=== PATIENT | male | born 1940 | race Caucasian/White ===

== ENCOUNTER 2021-03-02 13:54 | Outpatient (CLI) | payer MEDICARE, MEDICAID, SELFPAY ==
--- NOTE | 2021-03-02 14:15 | USCV_ITS ---
Johnie Reveles Age: 80 Gender: M : 1940 Exam Date: 03/02/2021 14:13 Ordering Phys: Pete Gibson M.D ([email or web address]) Technologist: Yasmine Case Exam Location: [facility] Indication: SOB BP: 197 / 70 HR: 131 Rhythm: Sinus Technical Quality: Adequate MEASUREMENTS (Male / Female) Normal Values 2D ECHO LV Diastolic Diameter PLAX 4.9 cm 4.2 - 5.9 / 3.9 - 5.3 cm LV Systolic Diameter PLAX 3.5 cm LV Chamber Size 2.9 cm IVS Diastolic Thickness 1.2 cm 0.6 - 1.0 / 0.6 - 0.9 cm IVS Systolic Thickness 1.4 cm LVPW Diastolic Thickness 1.5 cm 0.6 - 1.0 / 0.6 - 0.9 cm LVPW Systolic Thickness 1.5 cm RV Chamber Size 4.0 cm LVOT Diameter 2.0 cm LV Ejection Fraction 2D Teich 53.4 % LV Ejection Fraction MOD 2C 33.4 % LV Ejection Fraction 2C AL 43.1 % LA Diameter 4.8 cm LA Width 3.4 cm LA Height 5.4 cm RA Width 3.7 cm RA Height 4.8 cm Aorta at Sinotubular Diameter 2.7 cm M-MODE LV Diastolic Diameter MM 4.9 cm 4.2 - 5.9 / 3.9 - 5.3 cm LV Systolic Diameter MM 4.5 cm LV Ejection Fraction MM Teich 16.8 % IVS Diastolic Thickness MM 1.1 cm 0.6 - 1.0 / 0.6 - 0.9 cm IVS Systolic Thickness MM 1.2 cm LVPW Diastolic Thickness MM 1.5 cm 0.6 - 1.0 / 0.6 - 0.9 cm LVPW Systolic Thickness MM 2.0 cm Aortic Annulus Diameter 3.5 cm LA Ao Ratio MM 1.4 MV E Point Septal Separation 0.8 cm DOPPLER AV Peak Velocity 169.7 cm/s LVOT Peak Velocity 73.0 cm/s AV Area Cont Eq vti 1.8 cm squared AV Area Cont Eq pk 1.4 cm squared MV Area PHT 7.4 cm squared Mitral E to A Ratio 3.4 MV E' Velocity 68.2 cm/s Mitral E to MV E' Ratio 12.8 Mitral E to LV E' Lateral Ratio 12.0 Mitral E to LV E' Septal Ratio 13.7 TR Peak Velocity 316.8 cm/s TR Peak Gradient 40.2 mmHg TR Mean Velocity 238.7 cm/s TR Mean Gradient 25.4 mmHg TR Velocity Time Integral 76.0 cm Right Atrial Pressure 3.0 mmHg Pulmonary Artery Systolic Pressu 43.2 mmHg PV Peak Velocity 78.0 cm/s RV Acceleration Time 0.2 s RV Ejection Time 0.3 s RV AcT/ET 0.6 FINDINGS Left Ventricle Normal left ventricular size. LV systolic function is severely reduced with EF of 20-25%. Severe global hypokinesis. Diastolic function is indeterminate because of atrial flutter Right Ventricle The right ventricle is normal in size and function. Pacemaker lead is noted Right Atrium The right atrium is normal in size. [place] lead is seen Left Atrium The left atrium is dilated Mitral Valve Mild mitral annular calcification is noted without significant stenosis or prolapse. There is mild mitral regurgitation. Aortic Valve Aortic valve is thickened without significant sclerosis or stenosis. There is trace aortic regurgitation. Tricuspid Valve Structurally normal tricuspid valve without significant stenosis . Mild tricuspid regurgitation. RVSP is 35-40mmHg. This is consistent with mild pulmonary hypertension Pulmonic Valve Structurally normal pulmonic valve without significant stenosis. There is no pulmonic regurgitation. Pericardium Normal pericardium without effusion. Aorta Normal ascending aorta dimension. CONCLUSIONS LV systolic function is severely reduced with EF of 20-25% Left atrial enlargement Mild mitral regurgitation Mild tricuspid regurgitation Mild pulmonary hypertension No comparison studies are available Pete Gibson MD (Electronically Signed) Final Date: 06 March 2021 18:47 S
== END 2021-03-02 13:55 | disposition home or self-care (01) ==
LOC: RAD 14:01
PROVIDERS: PCP Nurse Practitioner Family; Visit Provider Internal Medicine
DX: R06.02 Shortness of breath (principal); I08.1 Rheumatic disorders of both mitral and tricuspid valves; I27.20 Pulmonary hypertension, unspecified
CPT/HCPCS: 93306

== ENCOUNTER 2021-03-03 14:35 | Inpatient (IN) | payer MEDICARE, MEDICAID, SELFPAY ==
[2021-03-03] VITALS (20 sets, daily range): BP systolic 88–130; BP diastolic 57–92; PULSE 98–133; RESP 15–23; TEMP 36.8–37.3; O2SAT 92–97; BMI 37.1; BMI 34.4
--- NOTE | 2021-03-03 14:58 | XR_ITS ---
WS: [id number] Exam: XR chest 1V portable [id number] Date/Time of Exam: 03/03/2021 3:15 PM Reason For Exam: dyspnea/cough No priors. The lungs are fully expanded. No infiltrates are seen. No pleural effusions. The heart is not enlarge d. Signs of previous CABG surgery. A cardiac pacer superimposes the left chest. Regional bony structu res are intact. XR/XR chest 1V portable [id number] IMPRESSION: 1. No acute cardiopulmonary finding.
--- NOTE | 2021-03-03 14:59 | ECG_ITS ---
[facility] Test Date: 2021-03-03 Pat Name: Johnie Reveles Department: Room: Gender: Male Mesmerist: : 1940 Requested By: Tripp Paredes Order Number: [id number] Moise MD: Pete Gibson M.D. Measurements Intervals [place] Rate: 132 P: 98 ID: [id number] QRS: 85 QRSD: 166 T: -73 QT: 354 QTc: 525 Interpretive Statements SINUS TACHYCARDIA LEFT BUNDLE BRANCH BLOCK [120+ ms QRS DURATION, 80+ ms Q/S IN V1/V2, 85+ ms R IN I/aVL/V5/V6] No previous ECG available for comparison Electronically Signed On 03-03-2021 17:30:18 CDT by Pete Gibson M.D. [email or web address] Solutionsuniversity of mississippi medical centerRogers Geotechnical Servicesohiohealth riverside method[facility] hospital.[id number]
--- NOTE | 2021-03-03 15:01 | ED_ITS ---
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 He has also gained 5 pounds in the last [address] Harvey and sent him over he was concerned with his significant ischemic cardiomyopathy was developing congestive heart failure. An echocardiogram yesterday. He states her heart rate went up 4 days ago and has been persistently elevated since then. He is denying any chest pain at this time and interestingly does not have a significant amount of orthopnea.He has an ICD and it was interrogated in Dr. Harvey's office today and was functioning properly. Onset (ago): day(s) (4) Relieving factors: none Exacerbating factors: none Associated symptoms: Reports dyspnea and palpitations; Deny chest pain, confusion, cough, diaphoresis, decreased appetite, fevers/chills, headache(s), malaise, nausea, rash, seizures, short of breath, syncope, vomiting or weakness Treatments prior to arrival: none Review of Systems Const: Denies: malaise or diaphoresis ENMT: Denies: throat pain, ear or mastoid pain, nasal discharge or nasal congestion Card: Reports: palpitations; Denies: chest pain or syncope Resp: Reports: dyspnea GI: Denies: nausea or vomiting : Denies: flank pain, dysuria, urinary frequency or urinary urgency Skin/Breast: Denies: rash Neuro: Denies: headache(s) or confusion PFSH ED PFSH: Medical History CAD (coronary artery disease) CHF (congestive heart failure) Hyperlipidemia Hypertension Pacemaker Surgical History H/O heart bypass surgery H/O shoulder surgery History of back surgery Hx of total knee arthroplasty Family History (Updated 03/03/21 @ 17:56 by Jh Lobo MD) Mother Alzheimer's dementia Father No problems noted. Other Hypertension Social History Smoking and tobacco status: never smoked Physical Exam Const: COMMON NORMALS: no acute distress GENERAL APPEARANCE: cooperative and comfortable ORIENTATION/CONSCIOUSNESS: Yes awake, Yes oriented to person, Yes oriented to place and Yes oriented to time HENMT: COMMON NORMALS: normocephalic, atraumatic, hearing grossly normal bilaterally and external ears normal HEAD & SCALP: normocephalic and atra umatic EXTERNAL EAR: Yes external ears normal Resp: COMMON NORMALS: normal respiratory effort, No retractions, No use of accessory muscles and clear to auscultation bilaterally AUSCULTATION: clear to auscultation bilaterally Cardio: COMMON NORMALS: No murmurs present (Cardio) RATE: tachycardic GI: COMMON NORMALS: Soft to palpation and No hepatosplenomegaly present AUSCULTATION: Yes normoactive bowel sounds PALPATION: Yes Soft to palpation, No Tenderness to palpation present (GI), No Guarding due to palpation present (GI) and Yes No hepatosplenomegaly present Extremity: COMMON NORMALS: normal to inspection, capillary refill normal, no clubbing, cyanosis or edema and no calf tenderness GENERAL: Yes edema Neuro: SENSORIUM/ORIENTATION: Yes oriented to person, Yes oriented to place and Yes oriented to time Skin: COMMON NORMALS: no rashes or lesions noted GENERAL SKIN EXAM: no rashes or lesions noted Course Vital Signs: Vital signs: Vital Signs Temperature 97.5 F L 03/05/21 06:30 Pulse Rate 127 H 03/05/21 06:30 Respiratory Rate 19 H 03/05/21 06:30 Blood Pressure 177/106 03/05/21 06:30 Pulse Oximetry 95 03/05/21 06:30 MDM - General Adult MDM Narrative: Medical decision making narrative: Patient is tachycardic patient has a known history of ischemic cardiomyopathy started on esmolol to slow rate pressure did improve also given Lasix has mild heart failure to discussed him with Dr. Gibson prior to the patient's arrival here will admit for rate control and congestive heart failure. Lab Data: Labs: Lab Results 03/03/21 03/03/21 03/03/21 Range/Units 15:31 15:31 15:31 WBC 8.0 (4.0-10.0) 10^3/ uL RBC 4.32 (4.1-5.3) 10^6/u L Hgb 13.3 (11.7-16.6) g/dL Hct 40.2 L (42.0-52.0) % MCV 93.1 (80-94) fL MCH 30.8 (28.0-34.0) pg MCHC 33.1 (30.0-36.0) g/dL RDW 13.2 (12.1-15.1) % Plt Count 148 (130-400) 10^3/c mm MPV 10.7 H (7.4-10.4) fL Neut % (Auto) 65.0 % Lymph % (Auto) 22.8 % Sequoyah % (Auto) 9.5 % Eos % (Auto) 1.7 % Baso % (Auto) 0.6 % Neut # (Auto) 5.23 (1.8-7.7) 10^3/u L Lymph # (Auto) 1.8 (0.8-4.8) 10^3/u L Sequoyah # (Auto) 0.8 (0.2-0.9) 10^3/u L Eos # (Auto) 0.1 (0.0-0.8) 10^3/u L Baso # (Auto) 0.1 (0.0-0.1) 10^3/u L Nucleated RBC % (a uto) 0 % Nucleated RBCs # 0.0 /100WBC Sodium 139 (136-145) mmol/L Potassium 4.1 (3.5-5.1) mmol/L Chloride 103 (98-107) mmol/L Carbon Dioxide 23 (22-29) mmol/L Anion Gap 17.1 (5-19) BUN 22 (8-23) mg/dL Creatinine 1.4 H (0.7-1.2) mg/dL GFR Calculation Not Reportable Glucose 196 H (65-115) mg/dL Calculated Osmolal ity 297 H (285-295) mOsm/k g Calcium 9.1 (8.5-10.5) mg/dL Phosphorus (2.5-4.5) mg/dL Magnesium (1.7-2.3) mg/dL Total Bilirubin 0.3 (0.15-1.2) mg/dL AST 19 (0-40) U/L ALT 18 (0-41) U/L Alkaline Phosphata se 68 (40-130) IU/L Troponin T Baselin e 73 H (0-15) ng/L NT-Pro-B Natriuret Pep 5210 H (0-450) pg/mL Total Protein 6.4 L (6.6-8.7) g/dL Albumin 4.5 (3.5-5.2) g/dL Globulin 1.9 (1.3-4.6) g/dL Urine Color (Yellow) Urine Appearance (CLEAR) Urine pH (5-7) Ur Specific Gravit y (1.005-1.030) Urine Protein (Negative) Urine Glucose (UA) (Normal) Urine Ketones (Negative) Urine Blood (Negative) Urine Nitrate (Negative) Urine Bilirubin (Negative) Urine Urobilinogen (Negative) mg/dL Ur Leukocyte Ellie ase (Negative) 03/03/21 03/03/21 Range/Units 15:31 16:00 WBC (4.0-10.0) 10^3/ uL RBC (4.1-5.3) 10^6/u L Hgb (11.7-16.6) g/dL Hct (42.0-52.0) % MCV (80-94) fL MCH (28.0-34.0) pg MCHC (30.0-36.0) g/dL RDW (12.1-15.1) % Plt Count (130-400) 10^3/c mm MPV (7.4-10.4) fL Neut % (Auto) % Lymph % (Auto) % Sequoyah % (Auto) % Eos % (Auto) % Baso % (Auto) % Neut # (Auto) (1.8-7.7) 10^3/u L Lymph # (Auto) (0.8-4.8) 10^3/u L Sequoyah # (Auto) (0.2-0.9) 10^3/u L Eos # (Auto) (0.0-0.8) 10^3/u L Baso # (Auto) (0.0-0.1) 10^3/u L Nucleated RBC % (a uto) % Nucleated RBCs # /100WBC Sodium (136-145) mmol/L Potassium (3.5-5.1) mmol/L Chloride (98-107) mmol/L Carbon Dioxide (22-29) mmol/L Anion Gap (5-19) BUN (8-23) mg/dL Creatinine (0.7-1.2) mg/dL GFR Calculation Glucose (65-115) mg/dL Calculated Osmolal ity (285-295) mOsm/k g Calcium (8.5-10.5) mg/dL Phosphorus 2.5 (2.5-4.5) mg/dL Magnesium 1.9 (1.7-2.3) mg/dL Total Bilirubin (0.15-1.2) mg/dL AST (0-40) U/L ALT (0-41) U/L Alkaline Phosphata se (40-130) IU/L Troponin T Baselin e (0-15) ng/L NT-Pro-B Natriuret Pep (0-450) pg/mL Total Protein (6.6-8.7) g/dL Albumin (3.5-5.2) g/dL Globulin (1.3-4.6) g/dL Urine Color Yellow (Yellow) Urine Appearance Clear (CLEAR) Urine pH 5 (5-7) Ur Specific Gravit y 1.010 (1.005-1.030) Urine Protein Neg (Negative) Urine Glucose (UA) Norm (Normal) Urine Ketones Negative (Negative) Urine Blood Neg (Negative) Urine Nitrate Negative (Negative) Urine Bilirubin Neg (Negative) Urine Urobilinogen Norm (Negative) mg/dL Ur Leukocyte Ellie ase Negative (Negative) Discharge Plan Discharge Patient Disposition: Admitted As Inpatient Admit Provider: Jh Lobo Clinical Impression: Sinus tachycardia, CHF exacerbation, Ischemic cardiomyopathy, Hypertension, CAD (coronary artery disease) Condition: Stable Coding Level of Care Code ED Nanny Caregiver for Chg Fwd Exam Detailed
[2021-03-03] MEDS: FUROsemide 10 mg/mL SDV 10mL 60 MG IVP (15:39)
[2021-03-03 15:42] LABS: Basophils # 0.1 10^3/uL (0.0-0.1); Basophils % 0.6 %; Eosinophils # 0.1 10^3/uL (0.0-0.8); Eosinophils % 1.7 %; Hematocrit 40.2 % (42.0-52.0); Hemoglobin 13.3 g/dL (11.7-16.6); Lymphocytes # 1.8 10^3/uL (0.8-4.8); Lymphocytes % 22.8 %; Mean Corpuscular HGB Conc 33.1 g/dL (30.0-36.0); Mean Corpuscular Hemoglobin 30.8 pg (28.0-34.0); Mean Corpuscular Volume 93.1 fL (80-94); Mean Platelet Volume 10.7 fL (7.4-10.4); Monocytes # 0.8 10^3/uL (0.2-0.9); Monocytes % 9.5 %; Neutrophils # 5.23 10^3/uL (1.8-7.7); Nucleated Red Blood Cells % 0 %; Platelet Count 148 10^3/cmm (130-400); Red Blood Count 4.32 10^6/uL (4.1-5.3); Red Cell Distribution Width 13.2 % (12.1-15.1)
[2021-03-03] MEDS: esmolol drip 2,500 MG/250 ML PREMIX 29.94 MG IV (15:50)
[2021-03-03 16:30] LABS: Alanine Aminotransferase 18 U/L (0-41); Albumin Level 4.5 g/dL (3.5-5.2); Alkaline Phosphatase 68 IU/L (40-130); Anion Gap 17.1 (5-19); Aspartate Amino Transferase 19 U/L (0-40); Blood Urea Nitrogen 22 mg/dL (8-23); Calcium 9.1 mg/dL (8.5-10.5); Carbon Dioxide 23 mmol/L (22-29); Chloride 103 mmol/L (98-107); Globulin 1.9 g/dL (1.3-4.6); Glucose 196 mg/dL (65-115); NT Pro B Type Natriuretic Pept 5210 pg/mL (0-450); Osmolality Calculated 297 mOsm/kg (285-295); Potassium 4.1 mmol/L (3.5-5.1); Sodium 139 mmol/L (136-145); Total Bilirubin 0.3 mg/dL (0.15-1.2); Total Protein 6.4 g/dL (6.6-8.7)
[2021-03-03 16:31] LABS: Troponin(5th) Baseline 73 ng/L (0-15)
[2021-03-03 16:47] LABS: Add Urine Microscopic? NO; Charge for UA Resulting for Rev
--- NOTE | 2021-03-03 16:59 | ECG_ITS ---
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 Measurements Intervals [place] Rate: 112 P: 118 DE: 175 QRS: 122 QRSD: 152 T: -48 QT: 389 QTc: 533 Interpretive Statements ELECTRONIC VENTRICULAR PACEMAKER Compared to ECG 03/03/2021 15:21:32 Sinus tachycardia no longer present Left bundle-branch block no longer present Electronically Signed On 03-03-2021 17:36:27 CDT by Pete Gibson M.D. [id number]
[2021-03-03 17:12] LABS: Bilirubin Urine Neg (Negative); Blood Urine Neg (Negative); Glucose Urine UA Norm (Normal); Ketones Urine Negative (Negative); Leukocyte Esterase Urine Negative (Negative); Nitrate Urine Negative (Negative); Protein Urine Neg (Negative); Urine Appearance Clear (CLEAR); Urine Color Yellow (Yellow); Urobilinogen Urine Norm (Negative); pH Urine 5 (5-7)
--- NOTE | 2021-03-03 17:19 | P.CONIM_ITS ---
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 He was seen in the office today by us for tachycardia and worsening shortness of breath. According to patient for the last 5 days he has her pulse rate has been very high. He has also been having shortness of breath. He has gained significant amount of weight over the last few days. EKG performed shows possible atrial flutter. Heart rates in 130s. Review of Systems Const: Denies: fever(s), chills, fatigue or malaise Eyes: Denies: change in vision or blurry vision ENMT: Denies: nasal congestion Card: Reports: palpitations and edema; Denies: chest pain Resp: Reports: dyspnea; Denies: productive cough, non-productive cough or wheezing GI: Reports: bloating; Denies: abdominal pain, nausea, vomiting, hematemesis, diarrhea, constipation, hematochezia or melena : Denies: flank pain, difficulty urinating, dysuria or urinary frequency Musc: Denies: neck pain or back pain Skin/Breast: Denies: rash Neuro: Denies: headache(s), dizziness or vertigo Endo: Reports: polyuria Meds/Allergies Home Medications and Allergies Home Medications Medication Instructions Recorded Confirmed Last Taken Type aspirin 81 mg tablet,delayed 81 mg PO DAILY@0700 01/28/21 03/03/21 03/03/21 History release carvedilol 12.5 mg tablet 12.5 mg PO BID@0700,1900 01/28/21 03/03/21 03/03/21 History cholecalciferol (vitamin D3) 25 25 mcg PO BID@0700,1900 cap 01/28/21 03/03/21 03/03/21 History mcg (1,000 unit) capsule cyanocobalamin (vitamin B-12) 1,000 mcg PO DAILY@0700 01/28/21 03/03/21 03/03/21 History 1,000 mcg capsule fluticasone propionate 50 2 spray INTRANASAL DAILY 01/28/21 03/03/21 03/03/21 03:00 History mcg/actuation nasal spray,suspension furosemide 40 mg tablet 40 mg PO DAILY@0700 01/28/21 03/03/21 03/03/21 History lisinopril 10 mg tablet 10 mg PO DAILY@0700 01/28/21 03/03/21 03/03/21 History montelukast 10 mg tablet 10 mg PO DAILY 01/28/21 03/03/21 03/03/21 History pantoprazole 40 mg granules 40 mg PO DAILY@0700 01/28/21 03/03/21 03/03/21 History delayed-release for susp in packet pregabalin 75 mg capsule 75 mg PO BID@0700,1900 01/28/21 03/03/21 03/03/21 History rosuvastatin 40 mg tablet 40 mg PO DAILY@19001/28/21 03/03/21 03/02/21 History tamsulosin 0.4 mg capsule 0.4 mg PO DAILY@189901/28/21 03/03/21 03/02/21 History zinc sulfate 50 mg zinc (220 mg) 50 mg PO DAILY@0700 01/28/21 03/03/21 03/03/21 History capsule amlodipine 5 mg PO DAILY@0703/03/21 03/03/21 03/03/21 History semaglutide [Rybelsus] 3 mg PO DAILY@0700 03/03/21 03/03/21 03/03/21 History Allergies Allergy/AdvReac Type Severity Reaction Status Date / Time heparin Allergy Unknown Unknown Verified 03/03/21 13:44 Current Medications Current Medications Generic Name Dose Route Start Last Admin Trade Name Freq PRN Reason Stop Dose Admin Esmolol HCl 2,500 mg in 250 mls @ 0 mls/hr 03/03/21 15:15 03/03/21 17:16 Brevibloc Drip IV 75 mcg/kg/min .Q0M GIL 44.91 mls/hr Titration Protocol Per Protocol PFSH Acute PFSH: Medical History CAD (coronary artery disease) CHF (congestive heart failure) Hyperlipidemia Hypertension Pacemaker Surgical History H/O heart bypass surgery H/O shoulder surgery History of back surgery Hx of total knee arthroplasty Family History Mother Alzheimer's dementia Father No problems noted. Other Hypertension Social History Smoking and tobacco status: never smoked Vitals/I&O/Wt Last Vital Signs Temp 98.2 F 03/03/21 15:50 Pulse 114 H 03/03/21 16:36 Resp 18 03/03/21 16:36 BP 106/78 03/03/21 16:36 Pulse Ox 95 03/03/21 16:36 03/03/21 03/03/21 03/03/21 06:59 14:59 22:59 Intake Total 42.914 / 42.914 Balance 42.914 / 42.914 Weight last 48 hrs Weight 220 lb Weight 230 lb Physical Exam Narrative: EXAM NARRATIVE: GENERAL: Patient is alert, awake and oriented x3. [] NECK: No jugular vein distension. [] HEENT: No cyanosis. No icterus. No pallor. [] HEART: Tachycardia, S1 and S2. No murmur, rub or gallop. [] LUNGS: Clear to auscultate bilaterally. [] ABDOMEN: Soft, nontender and nondistended. Positive bowel sounds. No guarding, rebound or tenderness. [] CENTRAL NERVOUS SYSTEM: Grossly nonfocal. [] EXTREMITIES: Lower extremities with 1+ edema bilaterally. Pulses palpable in the lower extremities, both dorsalis pedis and posterior tibial. [] A&P Assessment and plan (1) CHF exacerbation: Status: Acute (2) Atrial flutter: Status: Acute (3) Ischemic cardiomyopathy: Status: Acute (4) CHF (congestive heart failure): Status: Acute (5) Hyperlipidemia: Status: Acute (6) Hypertension: Status: Acute Patient is in CHF exacerbation and is significantly tachycardic. Likely atrial flutter Start anticoagulation Will get device interrogation to confirm diagnosis of atrial flutter. Patient started on esmolol gtt. Add amiodarone gtt IV lasix I and Os. Telemetry monitoring Thank you for involving us with care with of this patient. We will continue to follow. 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
--- NOTE | 2021-03-03 17:47 | P.HP_ITS ---
Providers/Chief Complaint Primary Care Provider: Phyllis Vick Chief Complaint: SOB History of Present Illness Johnie Reveles is a pleasant 80-year-old male, with a past medical history of CABG performed in [facility], history of ICD placement for ischemic cardiomyopathy, history of systolic and diastolic CHF, he tells me that before his pacemaker placement his EF was 15%, but it went up to 30%, for the last few years, hypertension, hyperlipidemia, noninsulin-dependent type 2 diabetes mellitus, who presents to [facility] due to complaints of palpitations and fast heart rate. 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 He tells me that he has been doing well, he moves between [place] and multiple areas in [facility]. He tells me that he has been doing well, no recent fevers, no cough, no recent illness. No recen t air travel, no calf pain, no calf swelling, no hemoptysis. Denies any recent chest pain, no shortness of breath, does have minimal bilateral pitting edema. 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 He tells me that he recently just met Dr. Gibson, as he was new to the area, he was actually here yesterday to do an echocardiogram, he did has been doing great according to him, but over the last 4 days he has been noticing that he has been having chest palpitations, he checked his pulse and his heart rates have been in the 130s,, until last night, he noticed episodes of chest palpitations, he checked his pulse, and his heart rates were in the 130s, he was relatively asymptomatic, no chest pain, slight shortness of breath, but he did notice that his abdomen was becoming quite swollen, and he was developing lower extremity edema, and he had gained 5 pounds. Patient was advised by Dr. Gibson to come to the emergency room, in the emergency room he was found to have sinus tachycardia, heart rates in the 130s, creatinine 1.4, baseline troponin 73, BNP 5210, EKG showing sinus tachycardia, paced rhythm, no chest pain, some shortness of breath, he was given 60 mg of Lasix and, he tells me that his breathing has improved, his abdominal distention has improved. Cardiology has been consulted, and want patient to be admitted on esmolol drip, diuretics, moved to the ICU. Review of Systems Const: Denies: fever(s), chills, fatigue or malaise Eyes: Denies: change in vision or blurry vision ENMT: Denies: nasal congestion Card: Reports: palpitations and edema; Denies: chest pain Resp: Reports: dyspnea; Denies: productive cough, non-productive cough or wheezing GI: Reports: bloating; Denies: abdominal pain, nausea, vomiting, hematemesis, diarrhea, constipation, hematochezia or melena : Denies: flank pain, difficulty urinating, dysuria or urinary frequency Musc: Denies: neck pain or back pain Skin/Breast: Denies: rash Neuro: Denies: headache(s), dizziness or vertigo Endo: Reports: polyuria Medications/Allergies Home Medications Medication Instructions Recorded Confirmed Last Taken Type aspirin 81 mg tablet,delayed 81 mg PO DAILY@0700 01/28/21 03/03/21 03/03/21 History release carvedilol 12.5 mg tablet 12.5 mg PO BID@0700,1900 01/28/21 03/03/21 03/03/21 History cholecalciferol (vitamin D3) 25 25 mcg PO BID@0700,1900 cap 01/28/21 03/03/21 03/03/21 History mcg (1,000 unit) capsule cyanocobalamin (vitamin B-12) 1,000 mcg PO DAILY@0700 01/28/21 03/03/21 03/03/21 History 1,000 mcg capsule fluticasone propionate 50 2 spray INTRANASAL DAILY 01/28/21 03/03/21 03/03/21 03:00 History mcg/actuation nasal spray,suspension furosemide 40 mg tablet 40 mg PO DAILY@0700 01/28/21 03/03/21 03/03/21 History lisinopril 10 mg tablet 10 mg PO DAILY@0700 01/28/21 03/03/21 03/03/21 History montelukast 10 mg tablet 10 mg PO DAILY 01/28/21 03/03/21 03/03/21 History pantoprazole 40 mg granules 40 mg PO DAILY@0700 01/28/21 03/03/21 03/03/21 History delayed-release for susp in packet pregabalin 75 mg capsule 75 mg PO BID@0700,1900 01/28/21 03/03/21 03/03/21 History rosuvastatin 40 mg tablet 40 mg PO DAILY@189901/28/21 03/03/21 03/02/21 History tamsulosin 0.4 mg capsule 0.4 mg PO DAILY@189901/28/21 03/03/21 03/02/21 History zinc sulfate 50 mg zinc (220 mg) 50 mg PO DAILY@0701/28/21 03/03/21 03/03/21 History capsule amlodipine 5 mg PO DAILY@0703/03/21 03/03/21 03/03/21 History semaglutide [Rybelsus] 3 mg PO DAILY@0700 03/03/21 03/03/21 03/03/21 History Allergies Allergy/AdvReac Type Severity Reaction Status Date / Time heparin Allergy Unknown Unknown Verified 03/03/21 13:44 PFSH Acute PFSH: Medical History CAD (coronary artery disease) CHF (congestive heart failure) Hyperlipidemia Hypertension Pacemaker Surgical History H/O heart bypass surgery H/O shoulder surgery History of back surgery Hx of total knee arthroplasty Family History (Updated 03/03/21 @ 17:55 by Jh Lobo MD) Mother Alzheimer's dementia Father No problems noted. Other Hypertension Social History Smoking and tobacco status: never smoked Vitals/I&O/Wt Last Vital Signs Temp 98.2 F 03/03/21 15:50 Pulse 114 H 03/03/21 16:36 Resp 18 03/03/21 16:36 BP 106/78 03/03/21 16:36 Pulse Ox 95 03/03/21 16:36 03/03/21 03/03/21 03/03/21 06:59 14:59 22:59 Intake Total 42.914 / 42.914 Balance 42.914 / 42.914 Weight last 48 hrs Weight 99.79 kg Weight 104.326 kg Physical Exam Const: COMMON NORMALS: no acute distress and patient oriented x3 Eye: COMMON NORMALS: Equal, round and reactive pupils present and EOMs intact bilaterally GENERAL EYE: appearance normal, both eyes and all related structu res PUPIL: Yes Equal, round and reactive pupils present Neck/C-Spine: COMMON NORMALS: full ROM THYROID: Thyroid normal Resp: COMMON NORMALS: normal respiratory effort, No retractions and No use of accessory muscles AUSCULTATION: crackles Cardio: COMMON NORMALS: regular rate, regular rhythm, S1 normal heart sound present and S2 normal heart sound present RATE: regular rate RHYTHM: regular rhythm HEART SOUNDS: S1 normal heart sound present and S2 normal heart sound present GI: COMMON NORMALS: Normal to inspection, nondistended, normoactive bowel sounds present, Soft to palpation, non-tender and No hepatosplenomegaly present INSPECTION: Yes Abdominal wall edema and Yes abdominal distension PALPATION: Yes Soft to palpation Extremity: COMMON NORMALS: normal to inspection OTHER: 1+edema Neuro: COMMON NORMALS: patient oriented x3, CN's II-XII intact bilaterally, moves all extremities and no focal motor deficits Psych: COMMON NORMALS: mental status grossly normal, Normal thought process present and cooperative THOUGHT PROCESS: Normal thought process present Data : 03/03/21 15:31 03/03/21 15:31 A&P Assessment and plan (1) CHF exacerbation: -No reported chest pain, does have shortness of breath, does have abdominal distention, some anasarca, 1+ pitting edema bilaterally -BNP is over 5000, chest x-ray does not show significant pulmonary vascular congestion, no significant crackles on exam, no hypoxia noted -Creatinine is 1.4, likely cardiorenal syndrome -Echocardiogram performed yesterday showed EF of 15% -With EF of 15%, heart rates in the 130s, looks sinus tachycardia with paced rhythm Plan: -Moved to ICU -Cardiology on consult -Currently on esmolol drip, titrate heart rate to less than 120 if blood pressure can tolerate, will hold antihypertensive medications -If he does not have good urine output with diuresis can consider dobutamine -Received 60 mg IV Lasix, had good urine diuresis -Start Bumex 1 mg every 12 hours tonight monitor serum creatinine, monitor potassium -Fluid restrictions 1500 cc -Continue aspirin, statin -TSH, lipid profile -NSTEMI, likely from supply demand ischemia from CHF exacerbation, however mars ot rule out underlying cardiac etiology, baseline troponin 73, monitor for chest pain, serial EKGs, serial troponins, telemetry monitoring, no plans on cardiac catheterization -Full code -Lovenox for DVT prophylaxis Status: Acute (2) Sinus tachycardia: Status: Acute (3) Ischemic cardiomyopathy: Status: Acute (4) Hyperlipidemia: Status: Acute (5) Hypertension: Status: Acute (6) Pacemaker: Status: Acute Attestations Medical Necessity Statement*: Patient requires hospitalization, inpatient, greater than 2 midnights for CHF exacerbation, sinus tachycardia, paced rhythm, ischemic cardiomyopathy, ICU admission, esmolol drip Coding Level of Care Code Acute 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
[2021-03-03] MEDS: potassium chloride ER 20 mEq Tablet 40 MEQ PO (18:12)
[2021-03-03 18:38] LABS: Troponin 5 2HR 84.21 ng/L (0-15)
[2021-03-03 18:40] LABS: Troponin 5 2HR Delta 11.21 ABS# (0-10)
[2021-03-03 18:59] LABS: Magnesium 1.9 mg/dL (1.7-2.3); Phosphorus 2.5 mg/dL (2.5-4.5)
[2021-03-03] MEDS: bumetanide 0.25 mg/mL SDV 4 mL 1 MG IV (19:30)
--- NOTE | 2021-03-03 20:59 | ECG_ITS ---
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 Measurements Intervals [place] Rate: 115 P: 104 SD: 232 QRS: 81 QRSD: 143 T: -74 QT: 342 QTc: 473 Interpretive Statements ELECTRONIC VENTRICULAR PACEMAKER ABNORMAL RHYTHM ECG Compared to ECG 03/03/2021 16:45:35 No significant changes Electronically Signed On 03-04-2021 17:49:11 CDT by Sahil Luna M.D. [id number]
[2021-03-03 21:28] LABS: Glucose Point of Care 240 mg/dL (70-110)
[2021-03-03] MEDS: enoxaparin 40 mg/0.4 mL Syringe SUBCUT (21:34)
[2021-03-03] MEDS: famotidine 20 mg Tablet PO (21:35)
[2021-03-03] MEDS: pregabalin 75 mg Capsule PO (21:35)
[2021-03-03] MEDS: atorvastatin 40 mg Tablet PO (21:35)
[2021-03-03] MEDS: tamsulosin 0.4 mg Capsule PO (21:35)
[2021-03-03 21:42] LABS: Troponin 5 6HR 82.88 ng/L (0-15); Troponin 5 6HR Delta 9.88 ng/L (0-12)
[2021-03-04] VITALS (91 sets, daily range): BP systolic 66–144; BP diastolic 28–102; PULSE 93–128; RESP 10–32; TEMP 36.9–37.1; O2SAT 88–98
[2021-03-04] MEDS: esmolol drip 2,500 MG/250 ML PREMIX 89.81 MG IV (00:13)
--- NOTE | 2021-03-04 01:54 | PC.NURSE ---
ASSUMING CARE Patient received from ER via [facility]. Patient ambulated steadily to bed. Room air. Alert and oriented x 4. Esmolol drip at 100 mcg/kg/min. Patient is atrial paced in the 120s at this time, esmolol drip titrated to 150 mcg/kg/min.
[2021-03-04] MEDS: esmolol drip 2,500 MG/250 ML PREMIX 119.75 MG IV ×5 (02:28→10:50)
[2021-03-04 05:41] LABS: Chol HDL Ratio 4.22 mg/dL (1.0-5.00); Cholesterol 135 mg/dL (0-200); HDL Cholesterol 32 mg/dL (60-100); Triglycerides 403 mg/dL (0-150)
[2021-03-04 06:11] LABS: LDL Cholesterol Direct 59 mg/dL (0-100)
[2021-03-04] MEDS: bumetanide 0.25 mg/mL SDV 4 mL 1 MG IV ×2 (06:13→18:11)
[2021-03-04] MEDS: aspirin 81 mg EC Tablet PO (06:13)
[2021-03-04] MEDS: cholecalciferol (vitamin D3) 1,000 unit Tablet 1000 UNIT PO ×2 (06:13→18:11)
[2021-03-04] MEDS: cyanocobalamin 1,000 mcg Tablet 1000 MCG PO (06:13)
[2021-03-04] MEDS: zinc gluconate 50 mg Tablet PO (06:13)
[2021-03-04] MEDS: pregabalin 75 mg Capsule PO ×2 (06:13→18:11)
[2021-03-04] MEDS: pantoprazole DR 40 mg Tablet PO (06:13)
--- NOTE | 2021-03-04 06:42 | PC.NURSE ---
SHIFT SUMMARY Patient rested well throughout the shift. Esmolol drip remains at 200 mcg/kg/min. Patient had 525 measured urine output and one void in the toilet. No issues at this time.
[2021-03-04 08:04] LABS: Glucose Point of Care 215 mg/dL (70-110)
[2021-03-04] MEDS: fluticasone nasal spray 16gm Btl 2 SPRAY INTRANASAL (08:29)
[2021-03-04] MEDS: famotidine 20 mg Tablet PO ×2 (08:29→17:35)
[2021-03-04] MEDS: montelukast sodium 10 mg Tablet PO (08:29)
[2021-03-04 08:30] LABS: Basophils # 0.1 10^3/uL (0.0-0.1); Basophils % 0.7 %; Eosinophils # 0.1 10^3/uL (0.0-0.8); Eosinophils % 1.6 %; Hematocrit 36.7 % (42.0-52.0); Lymphocytes # 1.7 10^3/uL (0.8-4.8); Mean Corpuscular HGB Conc 32.7 g/dL (30.0-36.0); Mean Corpuscular Hemoglobin 30.9 pg (28.0-34.0); Mean Corpuscular Volume 94.6 fL (80-94); Mean Platelet Volume 11.8 fL (7.4-10.4); Monocytes # 0.6 10^3/uL (0.2-0.9); Monocytes % 8.3 %; Neutrophils # 4.35 10^3/uL (1.8-7.7); Neutrophils % 64.3 %; Nucleated Red Blood Cells % 0 %; Platelet Count 135 10^3/cmm (130-400); Red Blood Count 3.88 10^6/uL (4.1-5.3); Red Cell Distribution Width 13.4 % (12.1-15.1); White Blood Count 6.8 10^3/uL (4.0-10.0)
[2021-03-04 09:09] LABS: Alanine Aminotransferase 16 U/L (0-41); Albumin Level 3.5 g/dL (3.5-5.2); Alkaline Phosphatase 63 IU/L (40-130); Anion Gap 18.4 (5-19); Aspartate Amino Transferase 15 U/L (0-40); Blood Urea Nitrogen 30 mg/dL (8-23); Calcium 8.7 mg/dL (8.5-10.5); Carbon Dioxide 21 mmol/L (22-29); Chloride 107 mmol/L (98-107); Globulin 2.4 g/dL (1.3-4.6); Glucose 164 mg/dL (65-115); Magnesium 1.6 mg/dL (1.7-2.3); NT Pro B Type Natriuretic Pept 6367 pg/mL (0-450); Osmolality Calculated 304 mOsm/kg (285-295); Phosphorus 2.9 mg/dL (2.5-4.5); Potassium 4.4 mmol/L (3.5-5.1); Sodium 142 mmol/L (136-145); Total Bilirubin 0.3 mg/dL (0.15-1.2); Total Protein 5.9 g/dL (6.6-8.7)
--- NOTE | 2021-03-04 09:51 | NM_ITS ---
WS: [id number] NUCLEAR MEDICINE LUNG VENTILATION AND PERFUSION CLINICAL INFORMATION: sinus tachycardia, shortness of breath TECHNIQUE: Ventilation/perfusion lung scan with mCi technetium 99m DTPA. COMPARISON: None. FINDINGS: Radiograph reviewed March 03, 2021. Cardiomegaly. Sternotomy. AICD. Chronic emphysematous changes. Normal symmetric radiotracer uptake on the perfusion images. Central deposition of radiotracer on the ventilatory images. No mismatched ventilation/perfusion or lobar defects to indicate pulmonary embol us. NM/NM pul vent and perfus* [id number] IMPRESSION: 1. Low probability for pulmonary embolus.
--- NOTE | 2021-03-04 10:11 | PC.CHAP ---
Pastoral Care Encounter/Spiritual Assessment Type of Contact [] Declined director of strategy & mobile visit [] Patient/Family/Request visit [] Outpatient visit [] Follow-up visit [] Physician referral [] Code/Alert [x] Routine visit [] Staff referral [] Actively dying [x] Patient sleeping [] Family support [] [] Out of room [] Palliative care [] [] Receiving care in room [] Pre-surgical visit [] Trauma [] Long length of stay [x] ICU visit [] Other: Relational/Emotional Strength [] Patient feels connected with others/family/visitors/staff [] Distress [] Loneliness/isolation [] Abandonment Spirituality of Patient [] Person of [place] [] Attends Uatsdin of their [place] [] Believes in Prayer [] Reads Bible or Rastafari materials [] There are Spiritual issues to be addressed Primer Inspector Interventions [x] Prayer [] Active listening [] Non-anxious presence [] Spiritual/emotional support [] Crisis/trauma care [] Spiritual counseling [] Bereavement support [] Provided bereavement packet [] Provided Bible/devotional materials [] Provided toy/stuffed animal, coloring book to patient or family member [] Provided Communion [] Anointing/[place] [] Salvation [x] Completed spiritual assessment [] Other: Impact on Illness or Injury [] Angry [] Fearful [] Anxious [] Often cries [] Exhaustion [] Unable to work [] Unable to attend orthodoxy [] Unable to walk/stand [] Unable to read [] Unable to drive [] Unable to eat/drink [] Unable to sleep [] Unable to be with family [] Patient intubated [] Other: Summary Time spent with patient
--- NOTE | 2021-03-04 10:41 | PC.OT ---
OT SCREEN COMPLETED. PATIENT DEMONSTRATES NO DEFICITS IN ADL PERFORMANCE. NO FURTHER SKILLED OT REQUIRED.
--- NOTE | 2021-03-04 10:54 | P.PN_ITS ---
Subjective Subjective: Interval history: Patient was seen this morning, he is on maximum dose esmolol, heart rates are still in the low teens, he denies any chest pain, no shortness of breath, he does tell me that his abdominal distention is improved, no fevers, no chills, Vitals/I&O/Wt Last Vital Signs Temp 98.4 F 03/04/21 08:00 Pulse 115 H 03/04/21 08:00 Resp 19 H 03/04/21 08:00 BP 99/63 03/04/21 08:00 Pulse Ox 90 03/04/21 08:00 03/03/21 03/04/21 03/04/21 22:59 06:59 14:59 Intake Total 250.000 / 250.000 819.556 / 1069.556 971.496 / 971.496 Output Total 400 / 400 Balance -150.000 / -150.000 819.556 / 669.556 971.496 / 971.496 Weight last 48 hrs Weight 97.976 kg Weight 99.79 kg Weight 104.326 kg Physical Exam Const: COMMON NORMALS: no acute distress and patient oriented x3 HENMT: COMMON NORMALS: normocephalic HEAD & SCALP: normocephalic Resp: COMMON NORMALS: normal respiratory effort, No retractions, No use of accessory muscles and clear to auscultation bilaterally AUSCULTATION: clear to auscultation bilaterally Cardio: COMMON NORMALS: regular rate, regular rhythm, S1 normal heart sound present and S2 normal heart sound present RATE: regular rate RHYTHM: regular rhythm HEART SOUNDS: S1 normal heart sound present and S2 normal heart sound present GI: COMMON NORMALS: Normal to inspection, nondistended, normoactive bowel sounds present, Soft to palpation and non-tender PALPATION: Yes Soft to palpation Extremity: OTHER: 1+ pitting edema Neuro: COMMON NORMALS: patient oriented x3 Data : 03/04/21 05:00 03/04/21 05:00 A&P Assessment and plan (1) CHF exacerbation: -No reported chest pain, does have shortness of breath, does have abdominal distention, some anasarca, 1+ pitting edema bilaterally -BNP is over 5000, chest x-ray does not show significant pulmonary vascular congestion, no significant crackles on exam, no hypoxia noted -Creatinine is 1.7, likely cardiorenal syndrome -Echocardiogram performed yesterday showed EF of 15% -With EF of 15%, heart rates in the 110s, looks sinus tachycardia with paced rhythm Plan: -ICU -Cardiology on consult -Currently on esmolol drip, titrate heart rate to less than 120 if blood pressure can tolerate, will hold antihypertensive medications -If he does not have good urine output with diuresis can consider dobutamine -Start Bumex 1 mg every 12 hours monitor serum creatinine, monitor potassium -Fluid restrictions 1500 cc -Continue aspirin, statin -TSH -NSTEMI, likely from supply demand ischemia from CHF exacerbation, however cannot rule out underlying cardiac etiology, baseline troponin 73, monitor for chest pain, serial EKGs, serial troponins, telemetry monitoring, no plans on cardiac catheterization -Bilateral lower extremity ultrasounds negative for DVT, given persistent sinus tachycardia, will order a ventilation/perfusion scan to evaluate for possible pulmonary emboli -Full code -Lovenox for DVT prophylaxis Status: Acute (2) Sinus tachycardia: Status: Acute (3) Ischemic cardiomyopathy: Status: Acute (4) Hyperlipidemia: Status: Acute (5) Hypertension: Status: Acute (6) Pacemaker: Status: Acute Attestations Medical Necessity Statement*: Patient requires hospitalization, inpatient, greater than 2 midnights, for sinus tachycardia, CHF exacerbation, Coding Level of Care Code Acute Flocculator Operator for [facility] Fwd Diagnoses CHF exacerbation I50.9 Sinus tachycardia R00.0 Ischemic cardiomyopathy I25.5 Hyperlipidemia E78.5 Hypertension I10 Pacemaker Z95.0
[2021-03-04 11:56] LABS: Glucose Point of Care 272 mg/dL (70-110)
[2021-03-04 11:59] LABS: Thyroid Stimulating Hormone 2.75 uIU/mL (0.27-4.20)
[2021-03-04] MEDS: enoxaparin 100 mg/mL Syringe SUBCUT (13:11)
--- NOTE | 2021-03-04 13:47 | PC.NURSE ---
Orders to start Amio at 1mg and titrate esmolol off noted. Esomolol titrated off per orderes, Pt VSS. will monitor.
[2021-03-04 17:28] LABS: Glucose Point of Care 194 mg/dL (70-110)
--- NOTE | 2021-03-04 17:46 | US_ITS ---
WS: [id number] ULTRASOUND ABDOMEN LIMITED CLINICAL INFORMATION: ascites COMPARISON: None. FINDINGS: No ascites or free fluid. US/US abdomen limited [id number] IMPRESSION: No ascites or free fluid.
--- NOTE | 2021-03-04 18:06 | USCV_ITS ---
Johnie Reveles Age: 80 Gender: M : 1940 Exam Date: 03/04/2021 06:23 Ordering Phys: Jh Lobo MD Technologist: Exam Location: [facility] – [place] Indication: BILAT EDEMA HISTORY: Lower extremity swelling. PROCEDURES: The venous duplex Doppler examination of both lower extremities was performed in the standard fashion. The following venous structures were evaluated: common femoral vein, profunda vein, proximal portion of the greater saphenous vein, superficial femoral vein, and the popliteal vein. Bilaterally, the common femoral, superficial femoral, profunda femoral, popliteal, posterior tibial, greater saphenous veins, and the peroneal trunk were identified and interrogated in the standard fashion. These veins were found to be easily compressible with spontaneous blood flow. No evidence of insufficiency or thrombus noted. FINDINGS: Normal 2-D Doppler and augmentation and compressibility throughout the lower extremity venous structures. Additional imaging through the proximal calf veins also reveals no thrombus. Limited evaluation of the greater saphenous vein is patent with no thrombus.. CONCLUSIONS No evidence of right lower extremity DVT. No evidence of left lower extremity DVT. Brett Dunn MD (Electronically Signed) Final Date: 04 March 2021 09:49 S
[2021-03-04] MEDS: tamsulosin 0.4 mg Capsule PO (18:11)
--- NOTE | 2021-03-04 19:54 | P.PN_ITS ---
Subjective Subjective: Interval history: Patient underwent VQ scan that was low probability. He is still tachycardic. Diuresing well. Vitals/I&O/Wt Last Vital Signs Temp 98.4 F 03/04/21 08:00 Pulse 124 H 03/04/21 17:15 Resp 23 H 03/04/21 17:15 BP 141/94 03/04/21 17:15 Pulse Ox 98 03/04/21 17:15 03/04/21 03/04/21 03/04/21 06:59 14:59 22:59 Intake Total 819.556 / 7172.826 8051.464 / 1666.464 240 / 1906.464 Output Total 300 / 300 200 / 500 Balance 819.556 / 386.715 9192.464 / 1366.464 40 / 1406.464 Weight last 48 hrs Weight 216 lb Weight 220 lb Weight 230 lb Physical Exam Narrative: EXAM NARRATIVE: GENERAL: Patient is alert, awake and oriented x3. [] NECK: No jugular vein distension. [] HEENT: No cyanosis. No icterus. No pallor. [] HEART: Tachycardia, S1 and S2. No murmur, rub or gallop. [] LUNGS: Clear to auscultate bilaterally. [] ABDOMEN: Soft, nontender and nondistended. Positive bowel sounds. No guarding, rebound or tenderness. [] CENTRAL NERVOUS SYSTEM: Grossly nonfocal. [] EXTREMITIES: Lower extremities with 1+ edema bilaterally. Pulses palpable in the lower extremities, both dorsalis pedis and posterior tibial. [] Data : 03/05/21 04:49 03/05/21 04:49 A&P Assessment and plan (1) CHF exacerbation: Status: Acute (2) Atrial flutter: Status: Acute (3) Ischemic cardiomyopathy: Status: Acute (4) CHF (congestive heart failure): Status: Acute (5) Hyperlipidemia: Status: Acute (6) Hypertension: Status: Acute Patient is in CHF exacerbation and is significantly tachycardic. Likely atrial flutter On Lovenx. Continue Will get device interrogation to confirm diagnosis of atrial flutter. Amio gtt started. Continue Continue IV lasix I and Os. Telemetry monitoring Thank you for involving us with care with of this patient. We will continue to follow. Please call with questions Attestations Medical Necessity Statement*: Care expected to cross 2 midnights. Coding Level of Care Code Acute In Flight Refueling System Repairer for [employer] Fwd Diagnoses CHF exacerbation I50.9 Atrial flutter I48.92 Ischemic cardiomyopathy I25.5 CHF (congestive heart failure) I50.9 Hyperlipidemia E78.5 Hypertension I10
[2021-03-04] MEDS: atorvastatin 40 mg Tablet PO (21:47)
[2021-03-05] VITALS (35 sets, daily range): BP systolic 125–184; BP diastolic 76–115; PULSE 111–132; RESP 13–26; TEMP 36.4–37.2; O2SAT 91–97
[2021-03-05] MEDS: enoxaparin 100 mg/mL Syringe SUBCUT ×2 (01:55→12:48)
[2021-03-05 05:22] LABS: Basophils % 0.4 %; Eosinophils # 0.1 10^3/uL (0.0-0.8); Eosinophils % 1.2 %; Hematocrit 39.4 % (42.0-52.0); Lymphocytes # 1.2 10^3/uL (0.8-4.8); Lymphocytes % 12.1 %; Mean Corpuscular Volume 93.8 fL (80-94); Mean Platelet Volume 11.3 fL (7.4-10.4); Monocytes # 0.7 10^3/uL (0.2-0.9); Monocytes % 6.9 %; Neutrophils # 8.03 10^3/uL (1.8-7.7); Nucleated Red Blood Cells % 0 %; Platelet Count 121 10^3/cmm (130-400); Red Cell Distribution Width 13.4 % (12.1-15.1); White Blood Count 10.2 10^3/uL (4.0-10.0)
[2021-03-05 05:32] LABS: INR 1.08 (0.8-1.2)
[2021-03-05 05:52] LABS: Alanine Aminotransferase 17 U/L (0-41); Albumin Level 3.9 g/dL (3.5-5.2); Alkaline Phosphatase 75 IU/L (40-130); Anion Gap 19.1 (5-19); Aspartate Amino Transferase 15 U/L (0-40); Blood Urea Nitrogen 29 mg/dL (8-23); Calcium 8.5 mg/dL (8.5-10.5); Carbon Dioxide 22 mmol/L (22-29); Chloride 101 mmol/L (98-107); Globulin 2.6 g/dL (1.3-4.6); Glucose 199 mg/dL (65-115); Magnesium 1.6 mg/dL (1.7-2.3); NT Pro B Type Natriuretic Pept 3906 pg/mL (0-450); Osmolality Calculated 297 mOsm/kg (285-295); Phosphorus 2.3 mg/dL (2.5-4.5); Potassium 4.1 mmol/L (3.5-5.1); Sodium 138 mmol/L (136-145); Total Bilirubin 0.5 mg/dL (0.15-1.2); Total Protein 6.5 g/dL (6.6-8.7)
[2021-03-05] MEDS: bumetanide 0.25 mg/mL SDV 4 mL 1 MG IV ×2 (06:20→18:19)
[2021-03-05] MEDS: aspirin 81 mg EC Tablet PO (06:21)
[2021-03-05] MEDS: pantoprazole DR 40 mg Tablet PO (06:21)
[2021-03-05] MEDS: cholecalciferol (vitamin D3) 1,000 unit Tablet 1000 UNIT PO ×2 (06:21→18:19)
[2021-03-05] MEDS: pregabalin 75 mg Capsule PO ×2 (06:21→18:32)
[2021-03-05] MEDS: zinc gluconate 50 mg Tablet PO (06:21)
[2021-03-05] MEDS: cyanocobalamin 1,000 mcg Tablet 1000 MCG PO (06:21)
--- NOTE | 2021-03-05 06:42 | PC.NURSE ---
ASSUMING CARE 1899 Patient resting in bed on room air, alert and oriented x 4. Amiodarone drip running at 1 mg/min. To be turned down to 0.5 mg/min at 1916. No needs at this time.
--- NOTE | 2021-03-05 06:43 | PC.NURSE ---
SHIFT SUMMARY No events this shift. Amiodarone at 0.5 mg/min. Alert and oriented x 4. New IV in left hand due to leaking and irritation of AC IV. 1100 mL measured urine output and 2 voids not measured.
[2021-03-05 07:46] LABS: Glucose Point of Care 236 mg/dL (70-110)
--- NOTE | 2021-03-05 08:42 | PC.CHAP ---
Pastoral Care Encounter/Spiritual Assessment Type of Contact [] Declined aviation mechanic visit [] Patient/Family/Request visit [] Outpatient visit [] Follow-up visit [] Physician referral [] Code/Alert [x] Routine visit [] Staff referral [] Actively dying [] Patient sleeping [] Family support [] [] Out of room [] Palliative care [] [] Receiving care in room [] Pre-surgical visit [] Trauma [] Long length of stay [x] ICU visit [] Other: Relational/Emotional Strength [] Patient feels connected with others/family/visitors/staff [] Distress [] Loneliness/isolation [] Abandonment Spirituality of Patient [] Person of [place] [] Attends Islam of their [place] [] Believes in Prayer [] Reads Bible or Sikh materials [] There are Spiritual issues to be addressed Resident Hall Director Interventions [x] Prayer [x] Active listening [x] Non-anxious presence [x] Spiritual/emotional support [] Crisis/trauma care [] Spiritual counseling [] Bereavement support [] Provided bereavement packet [] Provided Bible/devotional materials [] Provided toy/stuffed animal, coloring book to patient or family member [] Provided Communion [] Anointing/[place] [] Salvation [x] Completed spiritual assessment [] Other: Impact on Illness or Injury [] Angry [] Fearful [] Anxious [] Often cries [] Exhaustion [] Unable to work [] Unable to attend moravian [] Unable to walk/stand [] Unable to read [] Unable to drive [] Unable to eat/drink [] Unable to sleep [] Unable to be with family [] Patient intubated [] Other: Summary patient setting up in chair .. enjoyed breakfast.. very concerned about getting home to sick , scheduled procedure on tuesday next..they are each others support system Time spent with patient 10 min
[2021-03-05] MEDS: fluticasone nasal spray 16gm Btl 2 SPRAY INTRANASAL (08:45)
[2021-03-05] MEDS: phosphorus 250 mg Tablet PO ×2 (08:45→17:37)
[2021-03-05] MEDS: magnesium oxide 400 mg tablet PO ×2 (08:45→17:37)
[2021-03-05] MEDS: famotidine 20 mg Tablet PO ×2 (08:46→17:37)
[2021-03-05] MEDS: montelukast sodium 10 mg Tablet PO (08:46)
--- NOTE | 2021-03-05 09:45 | PC.NURSE ---
Patient to CSU from ICU. Patient on Amiodarone gtt at 0.5 mg/hr. Patient oriented to room and call light. Bed in low locked position. Nurse to continue to monitor.
[2021-03-05 11:19] LABS: Glucose Point of Care 219 mg/dL (70-110)
--- NOTE | 2021-03-05 11:49 | PM.PN ---
Subjective Subjective: Interval history: Patient was seen this morning, he is ambulating in his ICU room, without any significant symptomatology, heart rates in the 130s, it looks like it sinus tachycardia rhythm, but I was told after his pacemaker interrogation that the underlying rhythm is most likely atrial flutter, currently on amiodarone drip, denies chest pain, denies shortness of breath, no lightheadedness, dizziness, he tells me that he really needs to get home tomorrow as his is quite anxious and she is going to undergo radiation therapy to her back on Tuesday, and he wants to be there for his Vitals/I&O/Wt Last Vital Signs Temp 97.5 F L 03/05/21 06:30 Pulse 128 H 03/05/21 09:45 Resp 19 H 03/05/21 09:45 BP 144/92 03/05/21 09:45 Pulse Ox 96 03/05/21 09:45 03/04/21 03/05/21 03/05/21 22:59 06:59 14:59 Intake Total 691.209 / 2357.673 240 / 240 Output Total 200 / 500 1100 / 1600 Balance 491.209 / 1857.673 -1100 / 757.673 240 / 240 Weight last 48 hrs Weight 97.976 kg Weight 97.976 kg Weight 99.79 kg Weight 104.326 kg Physical Exam Const: COMMON NORMALS: no acute distress and patient oriented x3 Resp: COMMON NORMALS: normal respiratory effort, No retractions, No use of accessory muscles and clear to auscultation bilaterally AUSCULTATION: clear to auscultation bilaterally Cardio: COMMON NORMALS: regular rate, regular rhythm, S1 normal heart sound present and S2 normal heart sound present RATE: regular rate RHYTHM: regular rhythm HEART SOUNDS: S1 normal heart sound present and S2 normal heart sound present GI: COMMON NORMALS: Normal to inspection, nondistended, normoactive bowel sounds present, Soft to palpation and non-tender PALPATION: Yes Soft to palpation Extremity: COMMON NORMALS: no pedal edema Neuro: COMMON NORMALS: patient oriented x3 Data : 03/05/21 04:49 03/05/21 04:49 A&P Assessment and plan (1) CHF exacerbation: -No reported chest pain, does have shortness of breath, does have abdominal distention, some anasarca, 1+ pitting edema bilaterally -BNP is 3906, chest x-ray does not show significant pulmonary vascular congestion, no significant crackles on exam, no hypoxia noted -Creatinine is 1.6, likely cardiorenal syndrome -Echocardiogram performed yesterday showed EF of 15% -With EF of 15%, heart rates in the 110s, looks sinus tachycardia with paced rhythm -Baseline troponin 73, 6-hour troponin 82.8 8, delta 11, no active chest pain -After pacemaker interrogation, seems like patient's underlying rhythm is atrial flutter Plan: -Moved to CSU -Cardiology on consult -Transition off esmolol drip now on amiodarone drip -Therapeutic Lovenox - Bumex 1 mg every 12 hours monitor serum creatinine, monitor potassium -Fluid restrictions 1500 cc -Continue aspirin, statin -NSTEMI, likely from supply demand ischemia from CHF exacerbation, atrial flutter, however cannot rule out underlying cardiac etiology, monitor for chest pain, serial EKGs, serial troponins, telemetry monitoring, no plans on cardiac catheterization -Bilateral lower extremity ultrasounds negative for DVT, given persistent sinus tachycardia, ventilation/perfusion scan low probability of pulmonary emboli -Full code -Lovenox for DVT prophylaxis Plan for today, continue therapeutic Lovenox, continue amiodarone drip, monitor heart rates, plan for discharge in the next 2448 hrs. Status: Acute (2) Ischemic cardiomyopathy: Status: Acute (3) Hyperlipidemia: Status: Acute (4) Hypertension: Status: Acute (5) Pacemaker: Status: Acute (6) Atrial flutter: Status: Acute Attestations Medical Necessity Statement*: Patient requires hospitalization, for atrial flutter, CHF exacerbation Coding Level of Care Code Acute Certified Medical Technician Assistant for [facility] Fwd Diagnoses CHF exacerbation I50.9 Ischemic cardiomyopathy I25.5 Hyperlipidemia E78.5 Hypertension I10 Pacemaker Z95.0 Atrial flutter I48.92
--- NOTE | 2021-03-05 12:21 | PC.NURSE ---
Order Clarification Dr. Gibson updated on patient VS. Telephone order from Dr. Gibson to continue Amiodarone gtt at 0.5 mg/hr past 24 hour timeframe. Continue until further orders are received. RBTO.
[2021-03-05 17:05] LABS: Glucose Point of Care 201 mg/dL (70-110)
--- NOTE | 2021-03-05 17:40 | PC.NURSE ---
Verbal order from Dr. Gibson to start patient on PO metoprolol 25 mg BID, first dose now. Physician notified that next dose will populate for 2100 tonight. Physician gave verbal order to administer one dose now then start BID schedule at 0900 tomorrow. RBVO.
[2021-03-05] MEDS: metoprolol tartrate 25 mg Tablet PO (18:18)
[2021-03-05] MEDS: tamsulosin 0.4 mg Capsule PO (18:19)
--- NOTE | 2021-03-05 20:15 | PC.NURSE ---
Bedside report received from Elizabeth SANDERS. Patient is resting in bed. He has no C/O of pain or needs at this time. Patient had a run of V-Tach on the monitor. Padmini SANDERS callled Dr. English and he ordered an EKG. Patient does not C/O shortness of breath or chest pain at this time. Nurse will follow-up with Dr. English after EKG is performed.
--- NOTE | 2021-03-05 20:18 | ECG_ITS ---
[facility] Test Date: 2021-03-05 Pat Name: Johnie Reveles Department: Room: 101 Gender: Male Hall Supervisor: : 1940 Requested By: Shiv English Order Number: [id number] Moise MD: Sahil Luna M.D. Measurements Intervals [place] Rate: 128 P: 106 UT: 121 QRS: 46 QRSD: 142 T: 267 QT: 350 QTc: 512 Interpretive Statements ELECTRONIC VENTRICULAR PACEMAKER-A paced V sensed rhythm. The pacemaker showing the upper rate activity ABNORMAL RHYTHM ECG Compared to ECG 03/03/2021 20:28:52 No significant changes Electronically Signed On 03-07-2021 14:50:16 CDT by Sahil Luna M.D. [email or web address]
--- NOTE | 2021-03-05 20:19 | PC.NURSE ---
Patient having what appears to be runs of V-tach. He is on an amiodarone drip currently and denies any symptoms. Pacemaker in place. Informed Dr English who is here now on the floor.
[2021-03-05 20:20] LABS: Glucose Point of Care 216 mg/dL (70-110)
[2021-03-05] MEDS: magnesium sulfate premix 2 GM/50 ML PIGGYBACK IV (21:04)
[2021-03-05] MEDS: atorvastatin 40 mg Tablet PO (21:23)
--- NOTE | 2021-03-05 21:27 | PC.NURSE ---
During IV insertion blood got on patients sheets. Patient refuses linen change at this time. Nurse will continue to encourage linen change.
--- NOTE | 2021-03-05 21:53 | PM.PN ---
Subjective Subjective: Interval history: Patient heart rate is still uncontrolled. Vitals/I&O/Wt Last Vital Signs Temp 98.3 F 03/05/21 19:36 Pulse 129 H 03/05/21 19:36 Resp 26 H 03/05/21 19:36 BP 135/86 03/05/21 19:36 Pulse Ox 93 03/05/21 19:36 03/05/21 03/05/21 03/05/21 06:59 14:59 22:59 Intake Total 940.786 / 940.786 400 / 1340.786 Output Total 1100 / 1600 525 / 525 Balance -1100 / 757.673 940.786 / 940.786 -125 / 815.786 Weight last 48 hrs Weight 216 lb Weight 216 lb Physical Exam Narrative: EXAM NARRATIVE: GENERAL: Patient is alert, awake and oriented x3. [] NECK: No jugular vein distension. [] HEENT: No cyanosis. No icterus. No pallor. [] HEART: Tachycardia, S1 and S2. No murmur, rub or gallop. [] LUNGS: Clear to auscultate bilaterally. [] ABDOMEN: Soft, nontender and nondistended. Positive bowel sounds. No guarding, rebound or tenderness. [] CENTRAL NERVOUS SYSTEM: Grossly nonfocal. [] EXTREMITIES: Lower extremities with 1+ edema bilaterally. Pulses palpable in the lower extremities, both dorsalis pedis and posterior tibial. [] Data : 03/05/21 04:49 03/05/21 04:49 A&P Assessment and plan (1) CHF exacerbation: Status: Acute (2) Atrial flutter: Status: Acute (3) Ischemic cardiomyopathy: Status: Acute (4) CHF (congestive heart failure): Status: Acute (5) Hyperlipidemia: Status: Acute (6) Hypertension: Status: Acute Patient is in CHF exacerbation and is significantly tachycardic. Likely atrial flutter On Lovenox. Continue Heart rates are still uncontrolled. his [facility]ILDC[facility] C[facility] DIRECTOR-D will be interrogated tomorrow morning. Once atrial flutter is confirmed, will plan on IRINA/Cardioverion later in the day Amio gtt . Continue. Adding metoprolol 25mg bid Continue IV lasix I and Os. Telemetry monitoring Thank you for involving us with care with of this patient. We will continue to follow. Please call with questions Attestations Medical Necessity Statement*: Care expected to cross 2 midnights. Coding Level of Care Code Acute Bandsaw Operator for g Fwd Diagnoses CHF exacerbation I50.9 Atrial flutter I48.92 Ischemic cardiomyopathy I25.5 CHF (congestive heart failure) I50.9 Hyperlipidemia E78.5 Hypertension I10
--- NOTE | 2021-03-05 22:44 | PC.NURSE ---
Dr. English notified of patient C/O left arm pain where an IV was removed this morning. The area is firm and red. Ice pack applied per instructions from Dr. English. He will come and look at patients arm.
[2021-03-06] VITALS (35 sets, daily range): BP systolic 88–141; BP diastolic 55–102; PULSE 91–127; RESP 13–27; TEMP 36.8–37.1; O2SAT 90–99
[2021-03-06] MEDS: enoxaparin 100 mg/mL Syringe SUBCUT ×2 (01:06→11:06)
[2021-03-06 05:21] LABS: Basophils % 0.4 %; Eosinophils # 0.1 10^3/uL (0.0-0.8); Eosinophils % 0.9 %; Hematocrit 41.2 % (42.0-52.0); Hemoglobin 13.8 g/dL (11.7-16.6); Lymphocytes # 1.6 10^3/uL (0.8-4.8); Lymphocytes % 15.9 %; Mean Corpuscular HGB Conc 33.5 g/dL (30.0-36.0); Mean Corpuscular Hemoglobin 30.9 pg (28.0-34.0); Mean Corpuscular Volume 92.4 fL (80-94); Mean Platelet Volume 10.7 fL (7.4-10.4); Monocytes # 0.8 10^3/uL (0.2-0.9); Monocytes % 8.1 %; Neutrophils # 7.23 10^3/uL (1.8-7.7); Neutrophils % 74.5 %; Nucleated Red Blood Cells % 0 %; Platelet Count 149 10^3/cmm (130-400); Red Blood Count 4.46 10^6/uL (4.1-5.3); Red Cell Distribution Width 13.3 % (12.1-15.1); White Blood Count 9.7 10^3/uL (4.0-10.0)
[2021-03-06 05:28] LABS: INR 1.14 (0.8-1.2)
[2021-03-06 05:42] LABS: Alanine Aminotransferase 14 U/L (0-41); Albumin Level 4.1 g/dL (3.5-5.2); Alkaline Phosphatase 72 IU/L (40-130); Anion Gap 18.6 (5-19); Aspartate Amino Transferase 13 U/L (0-40); Blood Urea Nitrogen 22 mg/dL (8-23); Calcium 8.7 mg/dL (8.5-10.5); Carbon Dioxide 25 mmol/L (22-29); Chloride 100 mmol/L (98-107); Globulin 2.8 g/dL (1.3-4.6); Glucose 200 mg/dL (65-115); NT Pro B Type Natriuretic Pept 5063 pg/mL (0-450); Osmolality Calculated 299 mOsm/kg (285-295); Phosphorus 2.7 mg/dL (2.5-4.5); Potassium 3.6 mmol/L (3.5-5.1); Sodium 140 mmol/L (136-145); Total Bilirubin 0.7 mg/dL (0.15-1.2); Total Protein 6.9 g/dL (6.6-8.7)
[2021-03-06] MEDS: pregabalin 75 mg Capsule PO ×2 (06:08→18:34)
[2021-03-06] MEDS: zinc gluconate 50 mg Tablet PO (06:08)
[2021-03-06] MEDS: aspirin 81 mg EC Tablet PO (06:08)
[2021-03-06] MEDS: cholecalciferol (vitamin D3) 1,000 unit Tablet 1000 UNIT PO ×2 (06:08→18:34)
[2021-03-06] MEDS: cyanocobalamin 1,000 mcg Tablet 1000 MCG PO (06:08)
[2021-03-06] MEDS: pantoprazole DR 40 mg Tablet PO (06:09)
[2021-03-06] MEDS: bumetanide 0.25 mg/mL SDV 4 mL 1 MG IV ×2 (06:09→18:34)
[2021-03-06 06:43] LABS: Glucose Point of Care 212 mg/dL (70-110)
--- NOTE | 2021-03-06 07:44 | PC.NURSE ---
bedside rounding Pt is alert, orientedx4. denies any pain. Introduced day nurse to pt. Pt has a infiltration on left upper AC area from previous IV. Pt stated it is tender to the touch. Night RN applied cold compress and hospitalist is aware. Call light provided to pt.
--- NOTE | 2021-03-06 09:26 | USCV_ITS ---
Johnie Reveles Age: 80 Gender: M : 1940 Exam Date: 03/06/2021 12:08 Ordering Phys: Pete Gibson M.D ([email or web address]) Technologist: Yasmine Case [place] [facility] [place]: AFIB BP: / HR: Rhythm: Sinus Technical Quality: Good MEASUREMENTS (Male / Female) Normal Values Medications Complications Proc. Components FINDINGS Left Ventricle LV systolic function is severely reduced Right Ventricle RV is grossly normal. pacemerker lead is seen Right Atrium Normal Left Atrium Has smoke noted LA Appendage Has a thrombus noted in several views IA Septum Normal Mitral Valve Structurally normal. Has moderate mitral regurgitation Aortic Valve Thickened aortic valve. Has mild aortic regurgitation Tricuspid Valve Structurally normal. Has mild tricuspid regurgitation. Pulmonic Valve Grossly normal Pericardium Normal Aorta Atherosclerotic plaque is noted CONCLUSIONS LV systolic function is severely reduced There is a thrombus noted in the left atrial appendage Moderate mitral regurgitation Mild aortic regurgitation Mild triscuspid regurgitation Pete Gibson MD (Electronically Signed) Final Date: 06 March 2021 18:28 S
[2021-03-06] MEDS: metoprolol tartrate 25 mg Tablet PO ×2 (09:53→14:36)
[2021-03-06] MEDS: montelukast sodium 10 mg Tablet PO (09:53)
[2021-03-06 11:16] LABS: Glucose Point of Care 202 mg/dL (70-110)
--- NOTE | 2021-03-06 11:16 | PC.SOCIAL ---
*IMM UPDATE* Gave patient IMM update, provided him copy of pg 2 of IMM. Verbalized understanding. 03/06/21 @ 0931 Initialed, dated, timed and placed in chart.
--- NOTE | 2021-03-06 12:01 | P.ANESASSM_ITS ---
Pre-Anesthetic Assessment Pre-Anesthetic Assessment: Height/Weight: Height 1.7 m Weight 96.343 kg Temp Pulse Resp BP Pulse Ox 98.3 F 127 H 18 141/94 94 03/06/21 07:23 03/06/21 07:23 03/06/21 07:23 03/06/21 07:23 03/06/21 07:23 Preop Diagnosis: aflutter Proposed Procedure: Operation Date: 03/06/21 12:00 Proposed Procedures p IRINA(Bilateral) - Flaco Arana Beta Shruti taken within 24 hours: Yes Was Clonidine taken within 24 hours: N/A Last intake: 3am Last Intake: 03:00 Social: Social History: Alcohol and No tobacco Comment: wine with dinner Exam: Pre-Anes Outpt Exam: alert and oriented x 3 Airway: MP: 3 Additional comments: one tooth not loose Pulmonary: Pulmonary: None reported CV/HEM: CV/HEM: Arrythmia, CHF, DVT and AK Comments: cabg 12 years ago pacemaker/defibrillator hx PE : : None reported Hepatic: Hepatic: None reported GI: GI: None reported Metabolic: Metabolic: DM and Morbid obesity Musc/skel: Musc/skel: None reported Neuropsych: Neuropsych: None reported Anesthetic Plan: ASA status: 4 Anesthesia: Anesthesia Evaluation and MAC Risk of > 500 ml blood loss (7ml/kg in children): No Meds/Allergies Current Medications: Current Medications Generic Name Dose Route Start Last Admin Trade Name Freq PRN Reason Stop Dose Admin Aspirin 81 mg 03/04/21 07:00 03/06/21 06:08 Aspirin 81 Mg Ec Tablet PO 81 mg DAILY@0700 GIL Administration Atorvastatin Calci um 40 mg 03/03/21 21:00 03/05/21 21:23 Atorvastatin 40 Mg Tablet PO 40 mg BEDTIME GIL Administration Bumetanide 1 mg 03/03/21 19:00 03/06/21 06:09 Bumetanide 0.25 Mg/Ml Sdv 4 Ml IV 1 mg Q12H GIL Administration Cyanocobalamin 1,000 mcg 03/04/21 07:00 03/06/21 06:08 Cyanocobalamin 1 ,000 Mcg Tablet PO 1,000 mcg DAILY@0700 GIL Administration Enoxaparin Sodium 100 mg 03/04/21 13:00 03/06/21 11:06 Enoxaparin 100 M g/Ml Syringe 1 mg/kg (100 mg) 100 mg SUBCUT Administration Q12H [facility] Famotidine 20 mg 03/03/21 20:28 03/05/21 17:37 Famotidine 20 Mg Tablet PO 20 mg BID GIL Administration Fluticasone Propio carlos 2 spray 03/04/21 09:00 03/05/21 08:45 Fluticasone [facility] [employer] 16gm Btl INTRANASAL 2 spray DAILY GIL Administration Amiodarone HCl 900 mg/ 518 mls @ 0 mls/h r 03/04/21 12:45 03/05/21 12:49 Dextrose/ IV Misce llaneous IV 0.5 mg/min Supplies .Q0M GIL 17.27 mls/hr Administration Protocol Per Protocol Insulin Aspart 0 unit 03/03/21 20:28 03/06/21 08:19 Insulin Aspart 1 00 Unit/1 Ml SUBCUT Not Given TIDWM [facility] Protocol Magnesium Oxide 400 mg 03/05/21 09:00 03/05/21 17:37 Magnesium Oxide 400 Mg Tablet PO 400 mg BID GIL Administration Metoprolol Tartrat e 25 mg 03/05/21 17:45 03/06/21 09:53 Metoprolol Tartr ate 25 Mg Tablet PO 25 mg BID@0900,2100 [facility] Administration Montelukast Sodium 10 mg 03/04/21 09:00 03/06/21 09:53 Montelukast Sodi um 10 Mg Tablet PO 10 mg DAILY GIL Administration Pantoprazole Sodiu m 40 mg 03/04/21 07:00 03/06/21 06:[address] 40 Mg Tablet PO 40 mg DAILY@0700 [facility] Administration Potassium Phosphat e 250 mg 03/05/21 09:00 03/05/21 17:37 Phosphorus 250 M g Tablet PO 250 mg BID GIL Administration Pregabalin 75 mg 03/03/21 20:28 03/06/21 06:08 Pregabalin 75 Mg Capsule PO 75 mg BID@0700,1900 GIL Administration Tamsulosin HCl 0.4 mg 03/03/21 20:28 03/05/21 18:19 Tamsulosin 0.4 M g Capsule PO 0.4 mg DAILY@1900 [facility] Administration Vitamin D 1,000 unit 03/04/21 07:00 03/06/21 06:08 Cholecalciferol (Vitamin D3) 1,000 Unit Tablet PO 1,000 unit BID@0700,1900 GIL Administration Zinc Gluconate 50 mg 03/04/21 07:00 03/06/21 06:08 Zinc Gluconate 5 0 Mg Tablet PO 50 mg DAILY@0700 GIL Administration PFSH Anesthesia PFSH: Medical History CAD (coronary artery disease) CHF (congestive heart failure) Hyperlipidemia Hypertension Pacemaker Surgical History H/O heart bypass surgery H/O shoulder surgery History of back surgery Hx of total knee arthroplasty Family History Mother Alzheimer's dementia Father No problems noted. Other Hypertension Social History Smoking and tobacco status: never smoked Data Anesthesia CBC & Chem 7: 03/06/21 04:12 03/06/21 04:12 Other Labs: Laboratory Results - last 48 hr 03/04/21 03/05/21 03/05/21 17:11 04:49 04:49 WBC 10.2 H RBC 4.20 Hgb 13.0 Hct 39.4 L MCV 93.8 MCH 31.0 MCHC 33.0 RDW 13.4 Plt Count 121 L MPV 11.3 H Neut % (Auto) 79.0 Lymph % (Auto) 12.1 [place] % (Auto) 6.9 Eos % (Auto) 1.2 Baso % (Auto) 0.4 Neut # (Auto) 8.03 H Lymph # (Auto) 1.2 [place] # (Auto) 0.7 Eos # (Auto) 0.1 Baso # (Auto) 0.0 Nucleated RBC % (auto) 0 Nucleated RBCs # 0.0 PT INR Sodium 138 Potassium 4.1 Chloride 101 Carbon Dioxide 22 Anion Gap 19.1 H BUN 29 H Creatinine 1.6 H GFR Calculation Not Reportable Glucose 199 H POC Glucose 194 H Calculated Osmolality 297 H Calcium 8.5 Phosphorus 2.3 L Magnesium 1.6 L Total Bilirubin 0.5 AST 15 ALT 17 Alkaline Phosphatase 75 NT-Pro-B Natriuret Pep 3906 H Total Protein 6.5 L Albumin 3.9 Globulin 2.6 03/05/21 03/05/21 03/05/21 04:49 07:41 11:01 WBC RBC Hgb Hct MCV MCH MCHC RDW Plt Count MPV Neut % (Auto) Lymph % (Auto) [place] % (Auto) Eos % (Auto) Baso % (Auto) Neut # (Auto) Lymph # (Auto) [place] # (Auto) Eos # (Auto) Baso # (Auto) Nucleated RBC % (auto) Nucleated RBCs # PT 14.30 INR 1.08 Sodium Potassium Chloride Carbon Dioxide Anion Gap BUN Creatinine GFR Calculation Glucose POC Glucose 236 H 219 H Calculated Osmolality Calcium Phosphorus Magnesium Total Bilirubin AST ALT Alkaline Phosphatase NT-Pro-B Natriuret Pep Total Protein Albumin Globulin 03/05/21 03/05/21 03/06/21 17:00 20:15 04:12 WBC 9.7 RBC 4.46 Hgb 13.8 Hct 41.2 L MCV 92.4 MCH 30.9 MCHC 33.5 RDW 13.3 Plt Count 149 MPV 10.7 H Neut % (Auto) 74.5 Lymph % (Auto) 15.9 [place] % (Auto) 8.1 Eos % (Auto) 0.9 Baso % (Auto) 0.4 Neut # (Auto) 7.23 Lymph # (Auto) 1.6 [place] # (Auto) 0.8 Eos # (Auto) 0.1 Baso # (Auto) 0.0 Nucleated RBC % (auto) 0 Nucleated RBCs # 0.0 PT INR Sodium Potassium Chloride Carbon Dioxide Anion Gap BUN Creatinine GFR Calculation Glucose POC Glucose 201 H 216 H Calculated Osmolality Calcium Phosphorus Magnesium Total Bilirubin AST ALT Alkaline Phosphatase NT-Pro-B Natriuret Pep Total Protein Albumin Globulin 03/06/21 03/06/21 03/06/21 04:12 04:12 06:40 WBC RBC Hgb Hct MCV MCH MCHC RDW Plt Count MPV Neut % (Auto) Lymph % (Auto) [place] % (Auto) Eos % (Auto) Baso % (Auto) Neut # (Auto) Lymph # (Auto) [place] # (Auto) Eos # (Auto) Baso # (Auto) Nucleated RBC % (auto) Nucleated RBCs # PT 14.90 INR 1.14 Sodium 140 Potassium 3.6 Chloride 100 Carbon Dioxide 25 Anion Gap 18.6 BUN 22 Creatinine 1.5 H GFR Calculation Not Reportable Glucose 200 H POC Glucose 212 H Calculated Osmolality 299 H Calcium 8.7 Phosphorus 2.7 Magnesium 2.0 Total Bilirubin 0.7 AST 13 ALT 14 Alkaline Phosphatase 72 NT-Pro-B Natriuret Pep 5063 H Total Protein 6.9 Albumin 4.1 Globulin 2.8 03/06/21 11:07 WBC RBC Hgb Hct MCV MCH MCHC RDW Plt Count MPV Neut % (Auto) Lymph % (Auto) [place] % (Auto) Eos % (Auto) Baso % (Auto) Neut # (Auto) Lymph # (Auto) [place] # (Auto) Eos # (Auto) Baso # (Auto) Nucleated RBC % (auto) Nucleated RBCs # PT INR Sodium Potassium Chloride Carbon Dioxide Anion Gap BUN Creatinine GFR Calculation Glucose POC Glucose 202 H Calculated Osmolality Calcium Phosphorus Magnesium Total Bilirubin AST ALT Alkaline Phosphatase NT-Pro-B Natriuret Pep Total Protein Albumin Globulin Cardiac Studies: No Data to Display
--- NOTE | 2021-03-06 12:15 | P.PN_ITS ---
Subjective Subjective: Interval history: Patient was seen this morning, he is awaiting his MINOR/cardioversion, currently on amiodarone drip, he does not complain of anything, is wondering when he can go home after the procedure Vitals/I&O/Wt Last Vital Signs Temp 98.3 F 03/06/21 07:23 Pulse 127 H 03/06/21 07:23 Resp 18 03/06/21 07:23 BP 141/94 03/06/21 07:23 Pulse Ox 94 03/06/21 07:23 03/05/21 03/06/21 03/06/21 22:59 06:59 14:59 Intake Total 450 / 1390.786 Output Total 825 / 825 400 / 1225 650 / 650 Balance -375 / 565.786 -400 / 165.786 -650 / -650 Weight last 48 hrs Weight 96.343 kg Weight 97.976 kg Physical Exam Const: COMMON NORMALS: no acute distress and patient oriented x3 Resp: COMMON NORMALS: normal respiratory effort, No retractions, No use of accessory muscles and clear to auscultation bilaterally AUSCULTATION: clear to auscultation bilaterally Cardio: COMMON NORMALS: regular rhythm, S1 normal heart sound present and S2 normal heart sound present RATE: tachycardic RHYTHM: regular rhythm HEART SOUNDS: S1 normal heart sound present and S2 normal heart sound present GI: COMMON NORMALS: Normal to inspection, nondistended, normoactive bowel sounds present, Soft to palpation and non-tender PALPATION: Yes Soft to palpation Extremity: COMMON NORMALS: no pedal edema Neuro: COMMON NORMALS: patient oriented x3 Psych: COMMON NORMALS: mental status grossly normal Data : 03/06/21 04:12 03/06/21 04:12 A&P Assessment and plan (1) CHF exacerbation: -No reported chest pain, does have shortness of breath, does have abdominal distention, some anasarca, 1+ pitting edema bilaterally -BNP is 3906, chest x-ray does not show significant pulmonary vascular congestion, no significant crackles on exam, no hypoxia noted -Creatinine is 1.6, likely cardiorenal syndrome -Echocardiogram performed yesterday showed EF of 15% -With EF of 15%, heart rates in the 110s, looks sinus tachycardia with paced rhythm -Baseline troponin 73, 6-hour troponin 82.8 8, delta 11, no active chest pain -We will have a pacemaker interrogation this morning Plan: -CSU -Cardiology on consult -On amiodarone drip, metoprolol -Therapeutic Lovenox - Bumex 1 mg every 12 hours monitor serum creatinine, monitor potassium -Fluid restrictions 1500 cc -Continue aspirin, statin -NSTEMI, likely from supply demand ischemia from CHF exacerbation, atrial flutter, however cannot rule out underlying cardiac etiology, monitor for chest pain, serial EKGs, serial troponins, telemetry monitoring, no plans on cardiac catheterization -Bilateral lower extremity ultrasounds negative for DVT, given persistent sinus tachycardia, ventilation/perfusion scan low probability of pulmonary emboli -Full code -Lovenox for DVT prophylaxis Plan for today, PRESSURE TESTING TECHNICIAN interrogation, MINOR with cardioversion Status: Acute (2) Ischemic cardiomyopathy: Status: Acute (3) Hyperlipidemia: Status: Acute (4) Hypertension: Status: Acute (5) Pacemaker: Status: Acute (6) Atrial flutter: Status: Acute Attestations Medical Necessity Statement*: Patient requires hospitalization for CHF exacerbation, cardioversion/minor Coding Level of Care Code Acute Pickling Operator for [facility] Fwd Diagnoses CHF exacerbation I50.9 Ischemic cardiomyopathy I25.5 Hyperlipidemia E78.5 Hypertension I10 Pacemaker Z95.0 Atrial flutter I48.92
--- NOTE | 2021-03-06 12:15 | W.PM.OPSUD ---
Surgery/Procedure H&P Update DATE OF PROCEDURE: March 06, 2021 DATE H&P PERFORMED: 03/03/21 H&P UPDATE INFORMATION: I have reviewed H&P completed within last 30 days, I have examined patient prior to procedure and No changes to prior documentation PREOP DIAGNOSIS: Atrial flutter with rapid ventricular rate PRIMARY INDICATION FOR PROCEDURE: Atrial flutter with rapid ventricular rate PLANNED PROCEDURE: Operation Date: 03/06/21 12:00 Proposed Procedures p IRINA(Bilateral) - Pete Gibson M.D Cardioversion PATIENT REASSESSED PRIOR TO SEDATION, WITH NO CHANGE NOTED: Yes PHYSICAL EXAM: alert, oriented x 3, clear to auscultation bilaterally and regular rate & rhythm
--- NOTE | 2021-03-06 12:24 | PC.NURSE ---
Time Out 1224 for IRINA at bedside Verified Pt at bedside with staff BETSY Shoemaker.Tram , Dr. Gibson, [facility],this RN. Airway Mgt, suction at bedside, Nasal cannula at 4 L/min and procedural MAC sedation of Propofol IVP by BETSY Shoemaker. Phenylephrine IVP for hypotension given during procedure. 1229 PM- IRINA is done with result of a left appendage thrombus. Aborted/Cancelled the Cardioversion for now. 1300- Pt is awake, oriented x4, talking to nurse and . able to have parts back counter man. VS stable.
--- NOTE | 2021-03-06 12:24 | PC.NURSE ---
Addendum entered by Lio Tripp RN 03/06/21 12:53: edit note: BETSY Shoemaker during procedure instead of [place]. Original Note: Time Out 1224 for IRINA at bedside Verified Pt at bedside with staff w/ BETSY Domínguez, Dr. Gibson, [facility]. 1229 PM- IRINA is done with result of a left appendage thrombus. Aborted the cardioversion for now.
--- NOTE | 2021-03-06 12:48 | PC.NURSE ---
amiodarone drip hold Verbal order to stop amiodarone drip for now.
--- NOTE | 2021-03-06 14:20 | ANE.PACU2 ---
Inpatient post-anesthesia follow up: Airway intact: Yes Vital signs: Temperature 98.3 F Pulse Rate [Monito r] 131 Pulse Rate 97 Respiratory Rate 18 Blood Pressure [Le ft Arm] 112/76 Blood Pressure 140/81 Pulse Oximetry 95 Oxygen Delivery Me thod Room Air Oxygen Flow Rate Fraction of Inspir ed Oxygen Hydration adequate: Yes Nausea and vomiting: No Pain level: 1 Mental status: Baseline
[2021-03-06] MEDS: phosphorus 250 mg Tablet PO ×2 (14:35→17:53)
[2021-03-06] MEDS: fluticasone nasal spray 16gm Btl 2 SPRAY INTRANASAL (14:36)
[2021-03-06] MEDS: magnesium oxide 400 mg tablet PO ×2 (14:36→17:53)
[2021-03-06] MEDS: famotidine 20 mg Tablet PO ×2 (14:36→17:53)
--- NOTE | 2021-03-06 14:59 | PC.NURSE ---
Addendum entered by Lio Tripp RN 03/06/21 15:01: Telephone order read back from Dr. Gibson to start pt on Esmolol drip. Original Note: Received telephone order read back to start pt back on Esmolol Drip
--- NOTE | 2021-03-06 16:02 | PC.NURSE ---
ICU transfer/hand-off report Report given to MARILYN Saez in ICU. Pt will be started on Esmolol drip as ordered.
[2021-03-06] MEDS: esmolol drip 2,500 MG/250 ML PREMIX 28.9 MG IV (16:24)
[2021-03-06 17:49] LABS: Glucose Point of Care 231 mg/dL (70-110)
--- NOTE | 2021-03-06 18:03 | P.PN_ITS ---
Subjective Subjective: Interval history: Patient is doing well. Heart rates still in 120- 130s. Device interrogation confirmed atrial flutter. Patient underwent IRINA prior to possible cardioversion but was found to have a LAAA thrombus. Vitals/I&O/Wt Last Vital Signs Temp 98.3 F 03/06/21 16:00 Pulse 125 H 03/06/21 16:00 Resp 20 H 03/06/21 16:00 BP 114/68 03/06/21 16:00 Pulse Ox 93 03/06/21 16:00 03/06/21 03/06/21 03/06/21 06:59 14:59 22:59 Intake Total 769.011 / 769.011 120 / 889.011 Output Total 400 / 1225 950 / 950 Balance -400 / 165.786 -180.989 / -180.989 120 / -60.989 Weight last 48 hrs Weight 212 lb 6.4 oz Weight 216 lb Physical Exam Narrative: EXAM NARRATIVE: GENERAL: Patient is alert, awake and oriented x3. [] NECK: No jugular vein distension. [] HEENT: No cyanosis. No icterus. No pallor. [] HEART: Tachycardia, S1 and S2. No murmur, rub or gallop. [] LUNGS: Clear to auscultate bilaterally. [] ABDOMEN: Soft, nontender and nondistended. Positive bowel sounds. No guarding, rebound or tenderness. [] CENTRAL NERVOUS SYSTEM: Grossly nonfocal. [] EXTREMITIES: Lower extremities with 1+ edema bilaterally. Pulses palpable in the lower extremities, both dorsalis pedis and posterior tibial. [] Data : 03/06/21 04:12 03/06/21 04:12 A&P Assessment and plan (1) CHF exacerbation: Status: Acute (2) Ischemic cardiomyopathy: Status: Acute (3) Hyperlipidemia: Status: Acute (4) Hypertension: Status: Acute (5) Pacemaker: Status: Acute (6) Atrial flutter: Status: Acute Patient presented with CHF exacerbation and is significantly tachycardic. In atrial flutter On Lovenox. Continue Heart rates are still uncontrolled. his CEMENT STORAGE WORKER-D interrogated in the morning that showed atrial flutter.We scheduled him for IRINA cardioversion. However IRINA showed patient had left atrial appendage thrombus. Cardioversion canceled. Will switch amiodarone to esmolol drip. Metoprolol uptitrated to 50 mg twice daily. If heart rate still stay uncontrolled, can consider adding digoxin. Continue IV lasix I and Os. Telemetry monitoring Thank you for involving us with care with of this patient. We will continue to follow. Please call with questions Attestations Medical Necessity Statement*: Care expected to cross 2 midnights. Coding Level of Care Code Acute Licensed Tax Consultant for [facility] Fwd Diagnoses CHF exacerbation I50.9 Ischemic cardiomyopathy I25.5 Hyperlipidemia E78.5 Hypertension I10 Pacemaker Z95.0 Atrial flutter I48.92
[2021-03-06] MEDS: tamsulosin 0.4 mg Capsule PO (18:34)
[2021-03-06] MEDS: atorvastatin 40 mg Tablet PO (21:17)
[2021-03-06] MEDS: metoprolol tartrate 50 mg Tablet PO (21:17)
[2021-03-06 21:33] LABS: Glucose Point of Care 166 mg/dL (70-110)
[2021-03-07] VITALS (50 sets, daily range): BP systolic 80–130; BP diastolic 59–89; PULSE 82–124; RESP 0–26; TEMP 36.4–36.8; O2SAT 88–99
[2021-03-07] MEDS: enoxaparin 100 mg/mL Syringe SUBCUT ×2 (01:33→13:13)
--- NOTE | 2021-03-07 06:00 | USR_ITS ---
PROCEDURE INFORMATION: Exam: US Left arm Limited Exam date and time: 03/07/2021 6:00 AM Age: 80 years old Clinical indication: Swelling and other: Bruising; Arm, lower; Left; Additional info: Left ac hematoma TECHNIQUE: Imaging protocol: Left US abdomen. Real time ultrasound with image documentation. Limited exam focused on the region of clinical interest. COMPARISON: No relevant prior studies available. FINDINGS: Patient was scanned over the left antecubital region. Please see the venous duplex ultrasound for description of the thrombus in the superior and inferior aspects of the cephalic vein. No abnormal mass or fluid collection is seen. US/CV unlisted vascular [id number] IMPRESSION: No abnormal mass or fluid collection seen in the antecubital region. Please see the venous duplex ultrasound for description of the thrombus in the superior and inferior aspects of the cephalic vein.
--- NOTE | 2021-03-07 06:00 | USR_ITS ---
PROCEDURE INFORMATION: Exam: US Duplex Left Upper Extremity Veins, Limited Exam date and time: 03/07/2021 6:00 AM Age: 80 years old Clinical indication: Other: Hematoma; Additional info: Left ac TECHNIQUE: Imaging protocol: Real-time Duplex ultrasound of the Left Upper Extremity with 2-D acuna scale, color Doppler flow and spectral waveform analysis with image documentation. Limited exam focused on the left upper extremity veins. COMPARISON: No relevant prior studies available. FINDINGS: Left deep veins: Unremarkable. Axillary and brachial veins are patent throughout without thrombus. Normal Doppler waveforms. Normal compressibility and/or augmentation response. Visualized internal jugular and subclavian veins are patent. Left superficial veins: There is thrombus in the superior and inferior aspects of the cephalic vein. The antecubital region compresses. Basilic vein is patent. Soft tissues: Unremarkable. US/[place] [id number] IMPRESSION: There is superficial vein thrombosis involving the superior and inferior aspects of the cephalic vein.
[2021-03-07 06:21] LABS: Basophils % 0.4 %; Eosinophils # 0.1 10^3/uL (0.0-0.8); Eosinophils % 1.1 %; Hematocrit 37.1 % (42.0-52.0); Hemoglobin 12.3 g/dL (11.7-16.6); Lymphocytes # 1.5 10^3/uL (0.8-4.8); Lymphocytes % 16.7 %; Mean Corpuscular HGB Conc 33.2 g/dL (30.0-36.0); Mean Corpuscular Hemoglobin 30.8 pg (28.0-34.0); Mean Platelet Volume 11.1 fL (7.4-10.4); Monocytes % 11.1 %; Neutrophils # 6.37 10^3/uL (1.8-7.7); Neutrophils % 70.5 %; Nucleated Red Blood Cells % 0 %; Platelet Count 141 10^3/cmm (130-400); Red Blood Count 3.99 10^6/uL (4.1-5.3); Red Cell Distribution Width 13.6 % (12.1-15.1)
[2021-03-07] MEDS: bumetanide 0.25 mg/mL SDV 4 mL 1 MG IV ×2 (06:21→19:13)
[2021-03-07] MEDS: aspirin 81 mg EC Tablet PO (06:21)
[2021-03-07] MEDS: cholecalciferol (vitamin D3) 1,000 unit Tablet 1000 UNIT PO ×2 (06:21→19:13)
[2021-03-07] MEDS: pregabalin 75 mg Capsule PO ×2 (06:21→19:13)
[2021-03-07] MEDS: zinc gluconate 50 mg Tablet PO (06:21)
[2021-03-07] MEDS: pantoprazole DR 40 mg Tablet PO (06:21)
[2021-03-07] MEDS: cyanocobalamin 1,000 mcg Tablet 1000 MCG PO (06:21)
[2021-03-07] MEDS: esmolol drip 2,500 MG/250 ML PREMIX 57.81 MG IV (06:34)
[2021-03-07 06:37] LABS: INR 1.12 (0.8-1.2)
[2021-03-07 07:03] LABS: Alanine Aminotransferase 11 U/L (0-41); Albumin Level 3.7 g/dL (3.5-5.2); Alkaline Phosphatase 66 IU/L (40-130); Anion Gap 16.7 (5-19); Aspartate Amino Transferase 14 U/L (0-40); Blood Urea Nitrogen 29 mg/dL (8-23); Calcium 8.2 mg/dL (8.5-10.5); Carbon Dioxide 26 mmol/L (22-29); Chloride 102 mmol/L (98-107); Globulin 2.8 g/dL (1.3-4.6); Glucose 187 mg/dL (65-115); Magnesium 2.4 mg/dL (1.7-2.3); NT Pro B Type Natriuretic Pept 5894 pg/mL (0-450); Osmolality Calculated 303 mOsm/kg (285-295); Phosphorus 3.4 mg/dL (2.5-4.5); Potassium 3.7 mmol/L (3.5-5.1); Sodium 141 mmol/L (136-145); Total Bilirubin 0.7 mg/dL (0.15-1.2); Total Protein 6.5 g/dL (6.6-8.7)
[2021-03-07 07:53] LABS: Glucose Point of Care 201 mg/dL (70-110)
[2021-03-07] MEDS: famotidine 20 mg Tablet PO ×2 (08:09→17:23)
[2021-03-07] MEDS: magnesium oxide 400 mg tablet PO ×2 (08:10→17:23)
[2021-03-07] MEDS: phosphorus 250 mg Tablet PO ×2 (08:11→17:23)
[2021-03-07] MEDS: montelukast sodium 10 mg Tablet PO (08:11)
[2021-03-07] MEDS: metoprolol tartrate 50 mg Tablet PO ×2 (08:11→20:51)
[2021-03-07] MEDS: fluticasone nasal spray 16gm Btl 2 SPRAY INTRANASAL (08:13)
[2021-03-07] MEDS: esmolol drip 2,500 MG/250 ML PREMIX 86.71 MG IV ×5 (10:17→21:46)
--- NOTE | 2021-03-07 11:28 | P.PN_ITS ---
Subjective Subjective: Interval history: Patient is a good spirits this morning, a bit anxious, he tells me that is hard for him to sit around to do nothing, his heart rates are in the low 90s overnight, but currently they are in the high 110s, he did get up move around, no shortness of breath, he does have some left arm swelling at the IV insertion site, Vitals/I&O/Wt Last Vital Signs Temp 97.8 F 03/07/21 08:00 Pulse 105 H 03/07/21 09:30 Resp 17 03/07/21 09:30 BP 101/70 03/07/21 09:30 Pulse Ox 95 03/07/21 09:30 03/06/21 03/07/21 03/07/21 22:59 06:59 14:59 Intake Total 303.038 / 1072.049 266.962 / 1339.011 606.169 / 606.169 Output Total 300 / 1250 375 / 1625 300 / 300 Balance 3.038 / -177.951 -108.038 / -285.989 306.169 / 306.169 Weight last 48 hrs Weight 96.298 kg Weight 96.343 kg Physical Exam Const: COMMON NORMALS: no acute distress and patient oriented x3 Resp: COMMON NORMALS: normal respiratory effort, No retractions, No use of accessory muscles and clear to auscultation bilaterally AUSCULTATION: clear to auscultation bilaterally Cardio: COMMON NORMALS: regular rhythm, S1 normal heart sound present and S2 normal heart sound present RATE: tachycardic RHYTHM: regular rhythm HEART SOUNDS: S1 normal heart sound present and S2 normal heart sound present GI: COMMON NORMALS: Normal to inspection, nondistended, normoactive bowel sounds present, Soft to palpation, non-tender, No hepatosplenomegaly present, no masses and no bruits PALPATION: Yes Soft to palpation and Yes No hepatosplenomegaly present Extremity: COMMON NORMALS: no pedal edema Neuro: COMMON NORMALS: patient oriented x3 Psych: COMMON NORMALS: mental status grossly normal Skin: NARRATIVE SKIN EXAM: Left arm, at the elbow joint, IV insertion site, erythema, swelling, tenderness Data : 03/07/21 05:36 03/07/21 05:36 A&P Assessment and plan (1) CHF exacerbation: -No reported chest pain, does have shortness of breath, abdominal distention, anasarca, edema improved -BNP is 5894, chest x-ray does not show significant pulmonary vascular congestion, no significant crackles on exam, no hypoxia noted -Creatinine is 1.6, likely cardiorenal syndrome -Echocardiogram performed yesterday showed EF of 15% -With EF of 15%, heart rates in the 110s, looks sinus tachycardia with paced r hythm -Baseline troponin 73, 6-hour troponin 82.8 8, delta 11, no active chest pain -Status post transesophageal echocardiogram, thrombus noted in the left atrial appendage Plan: -Manage in ICU -Cardiology on consult -On esmolol drip, metoprolol -Therapeutic Lovenox - Bumex 1 mg every 12 hours monitor serum creatinine, monitor potassium -Fluid restrictions 1500 cc -Continue aspirin, statin -NSTEMI, likely from supply demand ischemia from CHF exacerbation, atrial flutter, however cannot rule out underlying cardiac etiology, monitor for chest pain, serial EKGs, serial troponins, telemetry monitoring, no plans on cardiac catheterization -Bilateral lower extremity ultrasounds negative for DVT,ventilation/perfusion scan low probability of pulmonary emboli -Full code -Lovenox for DVT prophylaxis Plan for today, continue esmolol drip, continue metoprolol, better heart rate control, possible discharge in the next 24-48 hrs., requires ICU admission due to esmolol drip Status: Acute (2) Ischemic cardiomyopathy: Status: Acute (3) Hyperlipidemia: Status: Acute (4) Hypertension: Status: Acute (5) Pacemaker: Status: Acute (6) Atrial flutter: Status: Acute Additional A&P Information Left elbow, IV infiltration site: With erythema, swelling, tenderness, ultrasound to rule out SVT, continue warm compresses, keep arm elevated, some surrounding evidence of cellulitis, will start some doxycycline 100 twice daily Attestations Medical Necessity Statement*: Patient requires hospitalization, for left atrial appendage, atrial flutter, CHF exacerbation, I see admission as that he is on esmolol drip Coding Level of Care Code Acute Rn Internal Medicine for [facility] Fwd Diagnoses CHF exacerbation I50.9 Ischemic cardiomyopathy I25.5 Hyperlipidemia E78.5 Hypertension I10 Pacemaker Z95.0 Atrial flutter I48.92
[2021-03-07] MEDS: doxycycline 100 mg Tablet PO ×2 (11:56→20:51)
[2021-03-07 12:06] LABS: Glucose Point of Care 256 mg/dL (70-110)
[2021-03-07] MEDS: polyethylene glycol 3350 Pkt 17 gm PO (14:28)
[2021-03-07] MEDS: digoxin 250 mcg/ml INJ 2 mL IVP ×2 (14:28→20:52)
--- NOTE | 2021-03-07 14:29 | P.PN_ITS ---
Subjective Subjective: Interval history: Cardiology coverage Patient is admitted to hospital with cardiomyopathy, atrial fibrillation with rapid ventricular rate. He was found to have left atrial thrombus by transesophageal echocardiogram. He is on amiodarone and beta-venkata. The blood pressure is running in the low 100s. Denies any chest pain or chest tightness. No unusual shortness of breath. No fever, chills or cough. No other specific complaints. Medications: Reviewed: Yes Medication Review Details: Current Medications Acetaminophen (Acetaminophen 325 Mg Tablet) 650 mg PO Q6H PRN PRN Reason: Mild/Mod Pain Or Temp >/= 101 Aspirin (Aspirin 81 Mg Ec Tablet) 81 mg PO DAILY@0700 [facility], [facility] Last Admin: 03/07/21 06:21 Dose: 81 mg Documented by: Atorvastatin Calcium (Atorvastatin 40 Mg Tablet) 40 mg PO BEDTIME [facility], [facility] Last Admin: 03/06/21 21:17 Dose: 40 mg Documented by: Bumetanide (Bumetanide 0.25 Mg/Ml Sdv 4 Ml) 1 mg IV Q12H [facility], [facility] Last Admin: 03/07/21 06:21 Dose: 1 mg Documented by: Cyanocobalamin (Cyanocobalamin 1,000 Mcg Tablet) 1,000 mcg PO DAILY@0700 [facility] Last Admin: 03/07/21 06:21 Dose: 1,000 mcg Documented by: Dextrose (Dextrose 50% Syringe 50 Ml) 25 ml IVP ONCE PRN; Protocol PRN Reason: hypoglycemia protocol Dextrose (Dextrose 50% Syringe 50 Ml) 50 ml IVP PRN PRN; Protocol PRN Reason: hypoglycemia protocol Digoxin (Digoxin 250 Mcg/Ml Inj 2 Ml) 250 mcg IVP Q6H [facility]1983 Stop: 03/08/21 08:00 Doxycycline Monohydrate (Doxycycline 100 Mg Tablet) 100 mg PO BID@0900,2100 [facility], [facility]; Protocol Last Admin: 03/07/21 11:56 Dose: 100 mg Documented by: Enoxaparin Sodium (Enoxaparin 100 Mg/Ml Syringe) 100 mg 1 mg/kg (100 mg) SUBCUT Q12H [facility] Last Admin: 03/07/21 13:13 Dose: 100 mg Documented by: Famotidine (Famotidine 20 Mg Tablet) 20 mg PO BID [facility] Last Admin: 03/07/21 08:09 Dose: 20 mg Documented by: Fluticasone Propionate (Fluticasone Nasal [place] 16gm Btl) 2 spray INTRANASAL DAILY [facility], [facility] Last Admin: 03/07/21 08:13 Dose: 2 spray Documented by: Glucagon (Glucagon 1 Mg/Ml Inj 1 Ml) 1 mg IM ONCE PRN; Protocol PRN Reason: Adult Acute Hypoglycemia Prot. Dextrose (D5w) 500 mls @ 100 mls/hr IV ONCE PRN; Protocol PRN Reason: Adult Acute Hypoglycemia Prot Amiodarone HCl 900 mg/Dextrose/ IV Miscellaneous Supplies 518 mls @ 0 mls/hr IV .Q0M [facility], [facility]; Protocol Last Titration: 03/06/21 12:30 Dose: 0 mg/min, 0 mls/hr Documented by: Esmolol HCl (Brevibloc Drip) 2,500 mg in 250 mls @ 0 mls/hr IV .Q0M [facility], [facility]; Protocol Last Admin: 03/07/21 13:13 Dose: 150 mcg/kg/min, 86.71 mls/hr Documented by: Insulin Aspart (Insulin Aspart 100 Unit/1 Ml) 0 unit SUBCUT TIDWM [facility], [facility]; Protocol Last Admin: 03/07/21 11:59 Dose: 6 unit Documented by: Magnesium Oxide (Magnesium Oxide 400 Mg Tablet) 400 mg PO BID [facility] Last Admin: 03/07/21 08:10 Dose: 400 mg Documented by: Metoprolol Tartrate (Metoprolol Tartrate 50 Mg Tablet) 50 mg PO BID@0900,2100 [facility] Last Admin: 03/07/21 08:11 Dose: 50 mg Documented by: Montelukast Sodium (Montelukast Sodium 10 Mg Tablet) 10 mg PO DAILY [facility] Last Admin: 03/07/21 08:11 Dose: 10 mg Documented by: Naloxone HCl (Naloxone 0.4 Mg/Ml Sdv) 0.1 mg IVP Q2M PRN PRN Reason: OPIATERV Ondansetron HCl (Ondansetron 2 Mg/Ml Sdv 2 Ml) 4 mg IVP Q6H PRN PRN Reason: NAUSEA AND VOMITING Pantoprazole Sodium (Pantoprazole Dr 40 Mg Tablet) 40 mg PO DAILY@0700 [facility] Last Admin: 03/07/21 06:21 Dose: 40 mg Documented by: Polyethylene Glycol (Polyethylene Glycol 3350 Pkt 17 Gm) 17 gm PO DAILY [facility] Potassium Phosphate (Phosphorus 250 Mg Tablet) 250 mg PO BID [facility] Last Admin: 03/07/21 08:11 Dose: 250 mg Documented by: Pregabalin (Pregabalin 75 Mg Capsule) 75 mg PO BID@0700,1900 [facility] Last Admin: 03/07/21 06:21 Dose: 75 mg Documented by: Tamsulosin HCl (Tamsulosin 0.4 Mg Capsule) 0.4 mg PO DAILY@1900 [facility] Last Admin: 03/06/21 18:34 Dose: 0.4 mg Documented by: Vitamin D (Cholecalciferol (Vitamin D3) 1,000 Unit Tablet) 1,000 unit PO BID@0700,1900 [facility] Last Admin: 03/07/21 06:21 Dose: 1,000 unit Documented by: Zinc Gluconate (Zinc Gluconate 50 Mg Tablet) 50 mg PO DAILY@699 [facility] Last Admin: 03/07/21 06:21 Dose: 50 mg Documented by: Vitals/I&O/Wt Last Vital Signs Temp 98.1 F 03/07/21 12:30 Pulse 102 H 03/07/21 13:00 Resp 26 H 03/07/21 13:00 BP 90/67 03/07/21 13:00 Pulse Ox 95 03/07/21 13:00 03/06/21 03/07/21 03/07/21 22:59 06:59 14:59 Intake Total 303.038 / 1072.049 266.962 / 1339.011 856.169 / 856.169 Output Total 300 / 1250 375 / 1625 550 / 550 Balance 3.038 / -177.951 -108.038 / -285.989 306.169 / 306.169 Weight last 48 hrs Weight 212 lb 4.8 oz Weight 212 lb 6.4 oz Physical Exam Narrative: EXAM NARRATIVE: GENERAL: The patient is alert and oriented times three. Not in any acute distress. HEENT: No significant pallor, icterus or lymphadenopathy.Oral cavity: There are no mucous membrane lesions. NECK: Trachea appears to be central. No masses noted. No JVD or thyromegaly appreciated. RESPIRATORY: Chest is symmetrical. No intercostals muscle retraction or any accessory muscle activation. There is no chest wall tenderness. Breath sounds are heard bilaterally. No rales or rhonchi heard. No evidence of any co nsolidation. BREASTS: Deferred. HEART: The heart sounds are normal. No S3 or S4. Short systolic murmur in the left sternal border. No diastolic murmurs. . No pericardial rub ABDOMEN: No vessel pulsations or distention. No tenderness. No organomegaly appreciated. Bowel sounds are normally heard. : Deferred. RECTAL: Deferred. LYMPHATIC: No lymphadenopathy noted in the neck or groin. EXTREMITIES: Trace edema with no cyanosis. Peripheral pulses are palpable in fairly good volume and amplitude. MUSCULOSKELETAL: No acute joint deformities or swelling SKIN: There are no significant rashes or ecchymosis NEUROPSYCHIATRIC: The patient is alert and oriented x3. Appears to be in a good mood. No tremors or rigidity noted. Data : 03/08/21 06:21 03/08/21 06:21 Other Labs: Laboratory Last Values WBC 7.1 10^3/uL (4.0-10.0) 03/08/21 06:21 RBC 3.73 10^6/uL (4.1-5.3) L 03/08/21 06:21 Hgb 11.6 g/dL (11.7-16.6) L 03/08/21 06:21 Hct 35.7 % (42.0-52.0) L 03/08/21 06:21 MCV 95.7 fL (80-94) H 03/08/21 06:21 MCH 31.1 pg (28.0-34.0) 03/08/21 06:21 MCHC 32.5 g/dL (30.0-36.0) 03/08/21 06:21 RDW 13.7 % (12.1-15.1) 03/08/21 06:21 Plt Count 124 10^3/cmm (130-400) L 03/08/21 06:21 MPV 11.0 fL (7.4-10.4) H 03/08/21 06:21 Neut % (Auto) 70.2 % 03/08/21 06:21 Lymph % (Auto) 16.0 % 03/08/21 06:21 [place] % (Auto) 11.2 % 03/08/21 06:21 Eos % (Auto) 2.1 % 03/08/21 06:21 Baso % (Auto) 0.4 % 03/08/21 06:21 Neut # (Auto) 4.97 10^3/uL (1.8-7.7) 06/20/21 06:21 Lymph # (Auto) 1.1 10^3/uL (0.8-4.8) 03/08/21 06:21 [place] # (Auto) 0.8 10^3/uL (0.2-0.9) 03/08/21 06:21 Eos # (Auto) 0.2 10^3/uL (0.0-0.8) 03/08/21 06:21 Baso # (Auto) 0.0 10^3/uL (0.0-0.1) 03/08/21 06:21 Nucleated RBC % (auto) 0 % 03/08/21 06:21 Nucleated RBCs # 0.0 /100WBC 03/08/21 06:21 PT 14.80 SECONDS (12.1-14.9) 03/07/21 05:36 INR 1.12 (0.8-1.2) 03/07/21 05:36 Sodium 140 mmol/L (136-145) 03/08/21 06:21 Potassium 4.1 mmol/L (3.5-5.1) 03/08/21 06:21 Chloride 106 mmol/L (98-107) 03/08/21 06:21 Carbon Dioxide 25 mmol/L (22-29) 03/08/21 06:21 Anion Gap 13.1 (5-19) 03/08/21 06:21 BUN 33 mg/dL (8-23) H 03/08/21 06:21 Creatinine 1.6 mg/dL (0.7-1.2) H 03/08/21 06:21 GFR Calculation Not Reportable 03/08/21 06:21 Glucose 172 mg/dL (65-115) H 03/08/21 06:21 POC Glucose 206 mg/dL (70-110) H 03/08/21 07:36 Calculated Osmolality 301 mOsm/kg (285-295) H 03/08/21 06:21 Calcium 7.8 mg/dL (8.5-10.5) L 03/08/21 06:21 Phosphorus 3.4 mg/dL (2.5-4.5) 03/08/21 06:21 Magnesium 2.2 mg/dL (1.7-2.3) 03/08/21 06:21 Total Bilirubin 0.4 mg/dL (0.15-1.2) 03/08/21 06:21 AST 10 U/L (0-40) 03/08/21 06:21 ALT 9 U/L (0-41) 03/08/21 06:21 Alkaline Phosphatase 57 IU/L (40-130) 03/08/21 06:21 Troponin T Baseline 73 ng/L (0-15) H 03/03/21 15:31 Troponin T 120 Minute 84.21 ng/L (0-15) H 03/03/21 17:56 Delta Troponin T 11.21 ABS# (0-10) H* 03/03/21 17:56 Troponin T Hi Sens 6Hr 82.88 ng/L (0-15) H 03/03/21 21:19 Troponin T Hi Sens 6Hr Delta 9.88 ng/L (0-12) 03/03/21 21:19 NT-Pro-B Natriuret Pep 5894 pg/mL (0-450) H 03/07/21 05:36 Total Protein 5.9 g/dL (6.6-8.7) L 03/08/21 06:21 Albumin 3.3 g/dL (3.5-5.2) L 03/08/21 06:21 Globulin 2.6 g/dL (1.3-4.6) 03/08/21 06:21 Triglycerides 403 mg/dL (0-150) H 03/04/21 05:00 Cholesterol 135 mg/dL (0-200) 03/04/21 05:00 LDL Cholesterol Direct 59 mg/dL (0-100) 03/04/21 05:00 LDL Cholesterol, Calc Not Reportable 03/04/21 05:00 HDL Cholesterol 32 mg/dL (60-100) L 03/04/21 05:00 LDL/HDL Ratio Not Reportable 03/04/21 05:00 Cholesterol/HDL Ratio 4.22 mg/dL (1.0-5.00) 03/04/21 05:00 TSH 2.75 uIU/mL (0.27-4.20) 03/04/21 05:00 Urine Color Yellow (Yellow) 03/03/21 16:00 Urine Appearance Clear (CLEAR) 03/03/21 16:00 Urine pH 5 (5-7) 03/03/21 16:00 Ur Specific [place] 1.010 (1.005-1.030) 03/03/21 16:00 Urine Protein Neg (Negative) 03/03/21 16:00 Urine Glucose (UA) Norm (Normal) 03/03/21 16:00 Urine Ketones Negative (Negative) 03/03/21 16:00 Urine Blood Neg (Negative) 03/03/21 16:00 Urine Nitrate Negative (Negative) 03/03/21 16:00 Urine Bilirubin Neg (Negative) 03/03/21 16:00 Urine Urobilinogen Norm mg/dL (Negative) 03/03/21 16:00 Ur Leukocyte Esterase Negative (Negative) 03/03/21 16:00 A&P Assessment and plan (1) Atrial flutter: The heart rate is still remaining under control. His blood pressure is soft. At this point, I may give him digoxin 0.25 mg IV every 6 hours x4. May continue on the other current medications. We will try to gradually taper off the IV esmolol. He is off the amiodarone. Based on the clinical progress, further recommendations will be made Status: Acute Qualifiers: Atrial flutter type: atypical Qualified Code(s): I48.4 - Atypical atrial flutter (2) Ischemic cardiomyopathy: Since the patient has no evidence of any cardiac decompensation, is advised to continue on the current measures. The current medications were reviewed. Status: Acute (3) CHF exacerbation: Currently the heart failure seems to be compensated. Status: Acute Qualifiers: Heart failure type: systolic Qualified Code(s): I50.23 - Acute on chronic systolic (congestive) heart failure (4) CAD (coronary artery disease): Status: Acute Qualifiers: Associated angina: unspecified whether angina present Coronary Disease- Associated Artery/Lesion type: [place] artery [place] vs. transplanted heart: n ative heart Qualified Code(s): I25.10 - Atherosclerotic heart disease of [place] coronary artery without angina pectoris Attestations Medical Necessity Statement*: Patient requires continued hospital stay for close monitoring and further management Coding Level of Care Code Acute Senior [employer] for [employer] [facility] Medical Decision Making Moderate Complexity Diagnoses Atrial flutter I48.4 Atrial flutter type: atypical Ischemic cardiomyopathy I25.5 CHF exacerbation I50.23 Heart failure type: systolic CAD (coronary artery disease) I25.10 Associated angina: unspecified whether angina present Coronary Disease-Associated Artery/Lesion type: [place] artery [place] vs. transplanted heart: [place] heart Time Spent (min) 35
[2021-03-07 17:26] LABS: Glucose Point of Care 151 mg/dL (70-110)
[2021-03-07] MEDS: tamsulosin 0.4 mg Capsule PO (19:13)
--- NOTE | 2021-03-07 19:21 | PC.NURSE ---
Shift SUmmary: Uneventful shift. Esmolol is currently maxed out per protocol at 200mcg/kg/min. Patient also had Digoxin ivp q6 started. Has been ambulated in the hdz twice today. About 500 feet total. Patient's heart rate has been varirable, but overall lower. THe last 3-4 hours of this shift his heart rate has been below 100.
[2021-03-07] MEDS: atorvastatin 40 mg Tablet PO (20:51)
[2021-03-07 21:31] LABS: Glucose Point of Care 150 mg/dL (70-110)
[2021-03-07] MEDS: acetaminophen 325 mg Tablet 650 MG PO (23:22)
[2021-03-08] VITALS (22 sets, daily range): BP systolic 90–145; BP diastolic 54–99; PULSE 74–125; RESP 5–26; TEMP 36–36.4; O2SAT 91–96
[2021-03-08] MEDS: esmolol drip 2,500 MG/250 ML PREMIX 86.71 MG IV (00:18)
[2021-03-08] MEDS: enoxaparin 100 mg/mL Syringe SUBCUT (00:19)
[2021-03-08] MEDS: digoxin 250 mcg/ml INJ 2 mL IVP ×2 (02:10→08:02)
[2021-03-08] MEDS: bumetanide 0.25 mg/mL SDV 4 mL 1 MG IV (06:21)
[2021-03-08] MEDS: cyanocobalamin 1,000 mcg Tablet 1000 MCG PO (06:21)
[2021-03-08] MEDS: pregabalin 75 mg Capsule PO (06:21)
[2021-03-08] MEDS: aspirin 81 mg EC Tablet PO (06:21)
[2021-03-08] MEDS: zinc gluconate 50 mg Tablet PO (06:21)
[2021-03-08] MEDS: cholecalciferol (vitamin D3) 1,000 unit Tablet 1000 UNIT PO (06:21)
[2021-03-08] MEDS: pantoprazole DR 40 mg Tablet PO (06:22)
[2021-03-08 07:09] LABS: Basophils % 0.4 %; Eosinophils # 0.2 10^3/uL (0.0-0.8); Eosinophils % 2.1 %; Hematocrit 35.7 % (42.0-52.0); Hemoglobin 11.6 g/dL (11.7-16.6); Lymphocytes # 1.1 10^3/uL (0.8-4.8); Mean Corpuscular HGB Conc 32.5 g/dL (30.0-36.0); Mean Corpuscular Hemoglobin 31.1 pg (28.0-34.0); Mean Corpuscular Volume 95.7 fL (80-94); Monocytes # 0.8 10^3/uL (0.2-0.9); Monocytes % 11.2 %; Neutrophils # 4.97 10^3/uL (1.8-7.7); Neutrophils % 70.2 %; Nucleated Red Blood Cells % 0 %; Platelet Count 124 10^3/cmm (130-400); Red Blood Count 3.73 10^6/uL (4.1-5.3); Red Cell Distribution Width 13.7 % (12.1-15.1); White Blood Count 7.1 10^3/uL (4.0-10.0)
[2021-03-08 07:22] LABS: Alanine Aminotransferase 9 U/L (0-41); Albumin Level 3.3 g/dL (3.5-5.2); Alkaline Phosphatase 57 IU/L (40-130); Anion Gap 13.1 (5-19); Aspartate Amino Transferase 10 U/L (0-40); Blood Urea Nitrogen 33 mg/dL (8-23); Calcium 7.8 mg/dL (8.5-10.5); Carbon Dioxide 25 mmol/L (22-29); Chloride 106 mmol/L (98-107); Globulin 2.6 g/dL (1.3-4.6); Glucose 172 mg/dL (65-115); Magnesium 2.2 mg/dL (1.7-2.3); Osmolality Calculated 301 mOsm/kg (285-295); Phosphorus 3.4 mg/dL (2.5-4.5); Potassium 4.1 mmol/L (3.5-5.1); Sodium 140 mmol/L (136-145); Total Bilirubin 0.4 mg/dL (0.15-1.2); Total Protein 5.9 g/dL (6.6-8.7)
[2021-03-08 07:39] LABS: Glucose Point of Care 206 mg/dL (70-110)
[2021-03-08] MEDS: polyethylene glycol 3350 Pkt 17 gm PO (08:04)
[2021-03-08] MEDS: magnesium oxide 400 mg tablet PO (08:08)
[2021-03-08] MEDS: doxycycline 100 mg Tablet PO (08:08)
[2021-03-08] MEDS: famotidine 20 mg Tablet PO (08:08)
[2021-03-08] MEDS: phosphorus 250 mg Tablet PO (08:08)
[2021-03-08] MEDS: metoprolol tartrate 50 mg Tablet PO (08:08)
[2021-03-08] MEDS: apixaban 5 mg Tablet 2.5 MG PO (10:02)
[2021-03-08] MEDS: montelukast sodium 10 mg Tablet PO (10:02)
--- NOTE | 2021-03-08 10:09 | P.PN_ITS ---
Subjective Subjective: Interval history: The patient is feeling okay. The resting heart rate is in the 70s and 80s. Patient is off the esmolol. He received a total of 1 mg of digoxin. Currently he is feeling okay. He is wanting to go home. Is on subcu Lovenox Medications: Reviewed: Yes Medication Review Details: Current Medications Acetaminophen (Acetaminophen 325 Mg Tablet) 650 mg PO Q6H PRN PRN Reason: Mild/Mod Pain Or Temp >/= 101 Last Admin: 03/07/21 23:22 Dose: 650 mg Documented by: Apixaban (Apixaban 5 Mg Tablet) 2.5 mg PO BID@0900,2100 [facility] Last Admin: 03/08/21 10:02 Dose: 2.5 mg Documented by: Aspirin (Aspirin 81 Mg Ec Tablet) 81 mg PO DAILY@0700 [facility] Last Admin: 03/08/21 06:21 Dose: 81 mg Documented by: Atorvastatin Calcium (Atorvastatin 40 Mg Tablet) 40 mg PO BEDTIME [facility] Last Admin: 03/07/21 20:51 Dose: 40 mg Documented by: Bumetanide (Bumetanide 0.25 Mg/Ml Sdv 4 Ml) 1 mg IV Q12H [facility] Last Admin: 03/08/21 06:21 Dose: 1 mg Documented by: Cyanocobalamin (Cyanocobalamin 1,000 Mcg Tablet) 1,000 mcg PO DAILY@0700 [facility] Last Admin: 03/08/21 06:21 Dose: 1,000 mcg Documented by: Dextrose (Dextrose 50% Syringe 50 Ml) 25 ml IVP ONCE PRN; Protocol PRN Reason: hypoglycemia protocol Dextrose (Dextrose 50% Syringe 50 Ml) 50 ml IVP PRN PRN; Protocol PRN Reason: hypoglycemia protocol Doxycycline Monohydrate (Doxycycline 100 Mg Tablet) 100 mg PO BID@0900,2100 [facility]; Protocol Last Admin: 03/08/21 08:08 Dose: 100 mg Documented by: Famotidine (Famotidine 20 Mg Tablet) 20 mg PO BID [facility] Last Admin: 03/08/21 08:08 Dose: 20 mg Documented by: Fluticasone Propionate (Fluticasone Nasal [place] 16gm Btl) 2 spray INTRANASAL DAILY [facility] Last Admin: 03/08/21 08:09 Dose: Not Given Documented by: Glucagon (Glucagon 1 Mg/Ml Inj 1 Ml) 1 mg IM ONCE PRN; Protocol PRN Reason: Adult Acute Hypoglycemia Prot. Dextrose (D5w) 500 mls @ 100 mls/hr IV ONCE PRN; Protocol PRN Reason: Adult Acute Hypoglycemia Prot Amiodarone HCl 900 mg/Dextrose/ IV Miscellaneous Supplies 518 mls @ 0 mls/hr IV .Q0M [facility]; Protocol Last Titration: 03/06/21 12:30 Dose: 0 mg/min, 0 mls/hr Documented by: Esmolol HCl (Brevibloc Drip) 2,500 mg in 250 mls @ 0 mls/hr IV .Q0M [facility]; Protocol Last Titration: 03/08/21 03:05 Dose: 0 mcg/kg/min, 0 mls/hr Documented by: Insulin Aspart (Insulin Aspart 100 Unit/1 Ml) 0 unit SUBCUT TIDWM [facility]; Protocol Last Admin: 03/08/21 08:07 Dose: 4 unit Documented by: Magnesium Oxide (Magnesium Oxide 400 Mg Tablet) 400 mg PO BID [facility] Last Admin: 03/08/21 08:08 Dose: 400 mg Documented by: Metoprolol Tartrate (Metoprolol Tartrate 50 Mg Tablet) 50 mg PO BID@0900,2100 [facility] Last Admin: 03/08/21 08:08 Dose: 50 mg Documented by: Montelukast Sodium (Montelukast Sodium 10 Mg Tablet) 10 mg PO DAILY [facility] Last Admin: 03/08/21 10:02 Dose: 10 mg Documented by: Naloxone HCl (Naloxone 0.4 Mg/Ml Sdv) 0.1 mg IVP Q2M PRN PRN Reason: OPIATERV Ondansetron HCl (Ondansetron 2 Mg/Ml Sdv 2 Ml) 4 mg IVP Q6H PRN PRN Reason: NAUSEA AND VOMITING Pantoprazole Sodium (Pantoprazole Dr 40 Mg Tablet) 40 mg PO DAILY@0700 [facility] Last Admin: 03/08/21 06:22 Dose: 40 mg Documented by: Polyethylene Glycol (Polyethylene Glycol 3350 Pkt 17 Gm) 17 gm PO DAILY [facility] Last Admin: 03/08/21 08:04 Dose: 17 gm Documented by: Potassium Phosphate (Phosphorus 250 Mg Tablet) 250 mg PO BID [facility] Last Admin: 03/08/21 08:08 Dose: 250 mg Documented by: Pregabalin (Pregabalin 75 Mg Capsule) 75 mg PO BID@0700,1900 [facility] Last Admin: 03/08/21 06:21 Dose: 75 mg Documented by: Tamsulosin HCl (Tamsulosin 0.4 Mg Capsule) 0.4 mg PO DAILY@1899 [facility] Last Admin: 03/07/21 19:13 Dose: 0.4 mg Documented by: Vitamin D (Cholecalciferol (Vitamin D3) 1,000 Unit Tablet) 1,000 unit PO BID@699,1899 [facility] Last Admin: 03/08/21 06:21 Dose: 1,000 unit Documented by: Zinc Gluconate (Zinc Gluconate 50 Mg Tablet) 50 mg PO DAILY@699 [facility] Last Admin: 03/08/21 06:21 Dose: 50 mg Documented by: Vitals/I&O/Wt Last Vital Signs Temp 97.6 F 03/07/21 19:30 Pulse 78 03/08/21 06:00 Resp 9 L 03/08/21 04:00 BP 107/60 03/08/21 04:00 Pulse Ox 94 03/08/21 04:00 03/07/21 03/08/21 03/08/21 22:59 06:59 14:59 Intake Total 887.439 / 1743.608 424.877 / 2168.485 Output Total 350 / 900 125 / 1025 700 / 700 Balance 537.439 / 843.608 299.877 / 1143.485 -700 / -700 Weight last 48 hrs Weight 212 lb 4.8 oz Physical Exam Narrative: EXAM NARRATIVE: GENERAL: The patient is alert and oriented times three. Not in any acute distress. HEENT: No significant pallor, icterus or lymphadenopathy.Oral cavity: There are no mucous membrane lesions. NECK: Trachea appears to be central. No masses noted. No JVD or thyromegaly appr eciated. RESPIRATORY: Chest is symmetrical. No intercostals muscle retraction or any accessory muscle activation. There is no chest wall tenderness. Breath sounds are heard bilaterally. No rales or rhonchi heard. No evidence of any consolidation. BREASTS: Deferred. HEART: The heart sounds are normal. No S3 or S4. Short systolic murmur in the left sternal border. No diastolic murmurs. . No pericardial rub ABDOMEN: No vessel pulsations or distention. No tenderness. No organomegaly appreciated. Bowel sounds are normally heard. : Deferred. RECTAL: Deferred. LYMPHATIC: No lymphadenopathy noted in the neck or groin. EXTREMITIES: Trace edema with no cyanosis. Peripheral pulses are palpable in fairly good volume and amplitude. MUSCULOSKELETAL: No acute joint deformities or swelling SKIN: There are no significant rashes or ecchymosis NEUROPSYCHIATRIC: The patient is alert and oriented x3. Appears to be in a good mood. No tremors or rigidity noted. Data : 03/08/21 06:21 03/08/21 06:21 Other Labs: Laboratory Last Values WBC 7.1 10^3/uL (4.0-10.0) 03/08/21 06:21 RBC 3.73 10^6/uL (4.1-5.3) L 03/08/21 06: Hgb 11.6 g/dL (11.7-16.6) L 03/08/21 06:21 Hct 35.7 % (42.0-52.0) L 03/08/21 06:21 MCV 95.7 fL (80-94) H 03/08/21 06:21 MCH 31.1 pg (28.0-34.0) 03/08/21 06:21 MCHC 32.5 g/dL (30.0-36.0) 03/08/21 06: RDW 13.7 % (12.1-15.1) 03/08/21 06:21 Plt Count 124 10^3/cmm (130-400) L 03/08/21 06:21 MPV 11.0 fL (7.4-10.4) H 03/08/21 06:21 Neut % (Auto) 70.2 % 03/08/21 06:21 Lymph % (Auto) 16.0 % 03/08/21 06:21 [place] % (Auto) 11.2 % 03/08/21 06:21 Eos % (Auto) 2.1 % 03/08/21 06: Baso % (Auto) 0.4 % 03/08/21 06: Neut # (Auto) 4.97 10^3/uL (1.8-7.7) 03/08/21 06:21 Lymph # (Auto) 1.1 10^3/uL (0.8-4.8) 03/08/21 06:21 [place] # (Auto) 0.8 10^3/uL (0.2-0.9) 03/08/21 06:21 Eos # (Auto) 0.2 10^3/uL (0.0-0.8) 03/08/21 06:21 Baso # (Auto) 0.0 10^3/uL (0.0-0.1) 03/08/21 06:21 Nucleated RBC % (auto) 0 % 03/08/21 06:21 Nucleated RBCs # 0.0 /100WBC 03/08/21 06:21 PT 14.80 SECONDS (12.1-14.9) 03/07/21 05:36 INR 1.12 (0.8-1.2) 03/07/21 05:36 Sodium 140 mmol/L (136-145) 03/08/21 06:21 Potassium 4.1 mmol/L (3.5-5.1) 03/08/21 06:21 Chloride 106 mmol/L (98-107) 03/08/21 06:21 Carbon Dioxide 25 mmol/L (22-29) 03/08/21 06:21 Anion Gap 13.1 (5-19) 03/08/21 06:21 BUN 33 mg/dL (8-23) H 03/08/21 06:21 Creatinine 1.6 mg/dL (0.7-1.2) H 03/08/21 06:21 GFR Calculation Not Reportable 03/08/21 06:21 Glucose 172 mg/dL (65-115) H 03/08/21 06:21 POC Glucose 206 mg/dL (70-110) H 03/08/21 07:36 Calculated Osmolality 301 mOsm/kg (285-295) H 03/08/21 06:21 Calcium 7.8 mg/dL (8.5-10.5) L 03/08/21 06:21 Phosphorus 3.4 mg/dL (2.5-4.5) 03/08/21 06:21 Magnesium 2.2 mg/dL (1.7-2.3) 03/08/21 06:21 Total Bilirubin 0.4 mg/dL (0.15-1.2) 03/08/21 06:21 AST 10 U/L (0-40) 03/08/21 06:21 ALT 9 U/L (0-41) 03/08/21 06:21 Alkaline Phosphatase 57 IU/L (40-130) 03/08/21 06:21 Troponin T Baseline 73 ng/L (0-15) H 03/03/21 15:31 Troponin T 120 Minute 84.21 ng/L (0-15) H 03/03/21 17:56 Delta Troponin T 11.21 ABS# (0-10) H* 03/03/21 17:56 Troponin T Hi Sens 6Hr 82.88 ng/L (0-15) H 03/03/21 21:19 Troponin T Hi Sens 6Hr Delta 9.88 ng/L (0-12) 03/03/21 21:19 NT-Pro-B Natriuret Pep 5894 pg/mL (0-450) H 03/07/21 05:36 Total Protein 5.9 g/dL (6.6-8.7) L 03/08/21 06:21 Albumin 3.3 g/dL (3.5-5.2) L 03/08/21 06:21 Globulin 2.6 g/dL (1.3-4.6) 03/08/21 06:21 Triglycerides 403 mg/dL (0-150) H 03/04/21 05:00 Cholesterol 135 mg/dL (0-200) 03/04/21 05:00 LDL Cholesterol Direct 59 mg/dL (0-100) 03/04/21 05:00 LDL Cholesterol, Calc Not Reportable 03/04/21 05:00 HDL Cholesterol 32 mg/dL (60-100) L 03/04/21 05:00 LDL/HDL Ratio Not Reportable 03/04/21 05:00 Cholesterol/HDL Ratio 4.22 mg/dL (1.0-5.00) 03/04/21 05:00 TSH 2.75 uIU/mL (0.27-4.20) 03/04/21 05:00 Urine Color Yellow (Yellow) 03/03/21 16:00 Urine Appearance Clear (CLEAR) 03/03/21 16:00 Urine pH 5 (5-7) 03/03/21 16:00 Ur Specific [place] 1.010 (1.005-1.030) 03/03/21 16:00 Urine Protein Neg (Negative) 03/03/21 16:00 Urine Glucose (UA) Norm (Normal) 03/03/21 16:00 Urine Ketones Negative (Negative) 03/03/21 16:00 Urine Blood Neg (Negative) 03/03/21 16:00 Urine Nitrate Negative (Negative) 03/03/21 16:00 Urine Bilirubin Neg (Negative) 03/03/21 16:00 Urine Urobilinogen Norm mg/dL (Negative) 03/03/21 16:00 Ur Leukocyte Esterase Negative (Negative) 03/03/21 16:00 A&P Assessment and plan (1) Atrial flutter: Patient may be started on his digoxin 0.125 mg daily. I may see the patient as and when it is needed. To have a digoxin level next week in the office. If the patient continues to remain stable, may be discharged home from a cardiac standpoint. Apparently the patient is insisting on going home, since his needs help Status: Acute Qualifiers: Atrial flutter type: atypical Qualified Code(s): I48.4 - Atypical atrial flutter (2) Ischemic cardiomyopathy: Since the patient has no evidence of any cardiac decompensation, is advised to continue on the current measures. The current medications were reviewed. Status: Acute (3) CHF exacerbation: Currently the heart failure seems to be compensated. Status: Acute Qualifiers: Heart failure type: systolic Qualified Code(s): I50.23 - Acute on chronic systolic (congestive) heart failure (4) CAD (coronary artery disease): Patient has no specific symptoms of coronary insufficiency. He may be kept on the current medications. Status: Acute Qualifiers: Associated angina: unspecified whether angina present Coronary Disease- Associated Artery/Lesion type: [place] artery [place] vs. transplanted heart: [place] heart Qualified Code(s): I25.10 - Atherosclerotic heart disease of [place] coronary artery without angina pectoris (5) Hyperlipidemia: Continue on the current management. Follow-up evaluation as scheduled. Status: Acute Qualifiers: Hyperlipidemia type: mixed hyperlipidemia Qualified Code(s): E78.2 - Mixed hyperlipidemia (6) Hypertension: Currently her blood pressure seems to be in the normal range. May continue on the current medications. Status: Acute Qualifiers: Hypertension type: essential hypertension Qualified Code(s): I10 - Essential (primary) hypertension (7) Pacemaker: Pacemaker function seems to be appropriate. We will continue with the follow-up schedule. Status: Acute Additional A&P Information Other problems are as outlined before. If the patient continues remain stable, may be discharged home from a cardiac standpoint. He may go home with digoxin 0.125 mg p.o. daily. Need to have a digoxin level next week in the office. [facility]ointment [facility] to be seen by a nurse practitioner in a week. Appointment with Dr. Gibson at the [facility] in 3 weeks Attestations Medical Necessity Statement*: Possible discharge home today Coding Level of Care Code Acute Senior Financial Analyst for rolando Fwd History Detailed Exam Detailed Medical Decision Making Moderate Complexity Diagnoses Atrial flutter I48.4 Atrial flutter type: atypical Ischemic cardiomyopathy I25.5 CHF exacerbation I50.23 Heart failure type: systolic CAD (coronary artery disease) I25.10 Associated angina: unspecified whether angina present Coronary Disease-Associated Artery/Lesion type: [place] artery [place] vs. transplanted heart: [place] heart Hyperlipidemia E78.2 Hyperlipidemia type: mixed hyperlipidemia Hypertension I10 Hypertension type: essential hypertension Pacemaker Z95.0
--- NOTE | 2021-03-08 11:49 | PM.DCS ---
Discharge Providers Date of Admission: 03/03/21 17:05 Date of Discharge: March 08, 2021 Attending Provider at Admission: Jh Lobo MD Attending Provider at Discharge: Geovanny Jovel Primary Care Provider: Phyllis Vick Diagnoses at Discharge Discharge Diagnosis (1) Atrial flutter: Status: Acute Qualifiers: Atrial flutter type: atypical Qualified Code(s): I48.4 - Atypical atrial flutter (2) Ischemic cardiomyopathy: Status: Acute (3) CHF exacerbation: Status: Acute Qualifiers: Heart failure type: systolic Qualified Code(s): I50.23 - Acute on chronic systolic (congestive) heart failure (4) CAD (coronary artery disease): Status: Acute Qualifiers: Associated angina: unspecified whether angina present Coronary Disease-Associated Artery/Lesion type: [place] artery [place] vs. transplanted heart: [place] heart Qualified Code(s): I25.10 - Atherosclerotic heart disease of [place] coronary artery without angina pectoris (5) Hyperlipidemia: Status: Acute Qualifiers: Hyperlipidemia type: mixed hyperlipidemia Qualified Code(s): E78.2 - Mixed hyperlipidemia (6) Hypertension: Status: Acute Qualifiers: Hypertension type: essential hypertension Qualified Code(s): I10 - Essential (primary) hypertension (7) Pacemaker: Status: Acute Reason for Visit Reason for Visit: SOB Hospital Course Hospital Course Very pleasant 80-year-old gentleman with history of CAD, CABG, ischemic cardiomyopathy, CHF, previously EF as low as 15%, but improved up to 30%, status post ICD, HLD, DM2, HTN, chronic kidney disease was admitted for assessment of management of CHF exacerbation, atrial flutter with RVR, type II MS, was treated with IV Lasix, then IV Bumex, fluid restriction, required esmolol drip to help bring down heart rates. Carvedilol changed to metoprolol. Transiently on amiodarone drip. Anticoagulation w Lovenox in hospital. Was seen by cardiology. Underwent IRINA, with finding of left atrial appendage thrombus, without possibility for cardioversion. Heart rates difficult to control, required loading with digoxin. Today heart rates are much better, at rest and 70s-80s. With activity his heart rate does rise into 100 and teens-120s, but then settles down. Discussed with him rate control strategy at this time. Maintain heart rates 110 or below. Continue to monitor at home. Anticoagulation at discharge was changed to Eliquis 2.5 mg given chronic kidney disease, his age. Will continue on oral diuretic at home for congestive heart failure. He would like to return home today to spend time with his who is going to be undergoing surgery, which she states he would like to do even if his heart rates are not peripherally controlled. Discussed with him risks of persistent tachycardia, worsening congestive heart failure, and other life-threatening complications. He verbalized understanding, will be monitoring his heart rates and knows to seek medical attention in case of any concerning symptoms, as well as follow-up with cardiology in office. Physical Exam Const: COMMON NORMALS: no acute distress and patient oriented x3 OTHER: Pleasant, conversant. Standing/ambulating in the room. HENMT: COMMON NORMALS: oropharynx normal Neck/C-Spine: COMMON NORMALS: no JVD Resp: COMMON NORMALS: normal respiratory effort and clear to auscultation bilaterally EFFORT & INSPECTION: Yes able to speak in complete sentences AUSCULTATION: clear to auscultation bilaterally Cardio: COMMON NORMALS: no JVD, S1 normal heart sound present, S2 normal heart sound present and No murmurs present (Cardio) RHYTHM: abnormal rhythm irregularly irregular HEART SOUNDS: S1 normal heart sound present and S2 normal heart sound present GI: COMMON NORMALS: Normal to inspection, nondistended, normoactive bowel sounds present, Soft to palpation and non-tender PALPATION: Yes Soft to palpation Extremity: COMMON NORMALS: no joint enlargement and no pedal edema Neuro: COMMON NORMALS: patient oriented x3 and moves all extremities Skin: COMMON NORMALS: no rashes or lesions noted GENERAL SKIN EXAM: no rashes or lesions noted Discharge Data Data Completed and Pending: Completed Studies During Hospitalization Category Date Time Status XR chest 1V vi ble [id number] Stat Exams 03/03/21 14:58 Completed NM pul vent and p erfus* [id number] Stat Nuc Med 03/04/21 09:51 Completed CV echo transesop hageal [id number] Routi ne Ultrasound 03/06/21 09:26 Completed CV unlisted vascu lar [id number] Routine Ultrasound 03/07/21 06:00 [place] [id number] Routin e Ultrasound 03/04/21 18:06 [place] [id number] Routin e Ultrasound 03/07/21 06:00 Completed US abdomen limite d [id number] Stat Ultrasound 03/04/21 17:46 Completed Pending at discharge Category Date Time Status Complete Blood Co unt w/Auto AM LABS Lab 03/09/21 04:00 Ordered Complete Blood Co unt w/Auto AM LABS Lab 03/10/21 04:00 Ordered Comprehensive Met abolic Panel AM LA BS Lab 03/09/21 04:00 Ordered Comprehensive Met abolic Panel AM LA BS Lab 03/10/21 04:00 Ordered Magnesium AM LABS Lab 03/09/21 04:00 Ordered Magnesium AM LABS Lab 03/10/21 04:00 Ordered Phosphorus AM LAB S Lab 03/09/21 04:00 Ordered Phosphorus AM LAB S Lab 03/10/21 04:00 Ordered Labs from last 24 hours 03/08/21 03/08/21 03/08/21 07:36 06:21 06:21 WBC 7.1 RBC 3.73 L Hgb 11.6 L Hct 35.7 L MCV 95.7 H MCH 31.1 MCHC 32.5 RDW 13.7 Plt Count 124 L MPV 11.0 H Neut % (Auto) 70.2 Lymph % (Auto) 16.0 [place] % (Auto) 11.2 Eos % (Auto) 2.1 Baso % (Auto) 0.4 Neut # (Auto) 4.97 Lymph # (Auto) 1.1 [place] # (Auto) 0.8 Eos # (Auto) 0.2 Baso # (Auto) 0.0 Nucleated RBC % (a uto) 0 Nucleated RBCs # 0.0 Sodium 140 Potassium 4.1 Chloride 106 Carbon Dioxide 25 Anion Gap 13.1 BUN 33 H Creatinine 1.6 H GFR Calculation Not Reportable Glucose 172 H POC Glucose 206 H Calculated Osmolal ity 301 H Calcium 7.8 L Phosphorus 3.4 Magnesium 2.2 Total Bilirubin 0.4 AST 10 ALT 9 Alkaline Phosphata se 57 Total Protein 5.9 L Albumin 3.3 L Globulin 2.6 03/07/21 03/07/21 03/07/21 21:19 17:20 11:50 WBC RBC Hgb Hct MCV MCH MCHC RDW Plt Count MPV Neut % (Auto) Lymph % (Auto) [place] % (Auto) Eos % (Auto) Baso % (Auto) Neut # (Auto) Lymph # (Auto) [place] # (Auto) Eos # (Auto) Baso # (Auto) Nucleated RBC % (a uto) Nucleated RBCs # Sodium Potassium Chloride Carbon Dioxide Anion Gap BUN Creatinine GFR Calculation Glucose POC Glucose 150 H 151 H 256 H Calculated Osmolal ity Calcium Phosphorus Magnesium Total Bilirubin AST ALT Alkaline Phosphata se Total Protein Albumin Globulin Vitals: Last Vital Signs Temp 96.8 F L 03/08/21 10:00 Pulse 74 03/08/21 10:00 Resp 20 H 03/08/21 10:00 BP 125/64 03/08/21 10:00 Pulse Ox 95 03/08/21 10:00 Discharge Plan Discharge Patient Disposition: Home Condition: Stable Prescriptions: New digoxin [Digox] 125 mcg (0.125 mg) tablet 125 mcg PO DAILY Qty: 30 RF: 0 metoprolol tartrate 50 mg Tablet 50 mg PO BID@0900,2100 Qty: 60 RF: 0 Eliquis 5 mg Tablet 2.5 mg PO BID@0900,2100 Qty: 60 RF: 3 Continued aspirin [Adult Low Dose Aspirin] 81 mg tablet,delayed release (DR/EC) 81 mg PO DAILY@0700 RF: 0 cyanocobalamin (vitamin B-12) 1,000 mcg capsule 1,000 mcg PO DAILY@0700 RF: 0 zinc sulfate [Orazinc] 50 mg zinc (220 mg) capsule 50 mg PO DAILY@07 RF: 0 cholecalciferol (vitamin D3) 25 mcg (1,000 unit) capsule 25 mcg PO BID@0700,1900 RF: 0 fluticasone propionate 50 mcg/actuation spray,suspension 2 spray intranasal DAILY RF: 0 rosuvastatin 40 mg tablet 40 mg PO DAILY@1899 RF: 0 montelukast 10 mg tablet 10 mg PO DAILY RF: 0 tamsulosin 0.4 mg capsule 0.4 mg PO DAILY@1900 RF: 0 pregabalin [Lyrica] 75 mg capsule 75 mg PO BID@0700,1900 RF: 0 pantoprazole [Protonix] [address] for susp in packet 40 mg PO DAILY@0700 RF: 0 furosemide 40 mg tablet 40 mg PO DAILY@0700 RF: 0 Rybelsus 3 mg Tablet 3 mg PO DAILY@0700 RF: 0 Discontinued lisinopril 10 mg tablet 10 mg PO DAILY@0700 RF: 0 carvedilol 12.5 mg tablet 12.5 mg PO BID@0700,1900 RF: 0 amlodipine 5 mg tablet 5 mg PO DAILY@0700 RF: 0 Discharge Orders: Discharge Order (Routine); Ordered 03/08/21 Ordered By: Geovanny Jovel Referrals: Pete Gibson M.D [Physician] - 1 week Phyllis Vick FNP [Primary Care Provider] - 4-7 days Discharge Diet: Cardiac and Diabetic Discharge Activity: Increase activity as tolerated and As per PT/OT instructions Patient Instructions: Metoprolol (By mouth), Apixaban (By mouth), Congestive Heart Failure, Atrial Fibrillation (GEN), Opioid Safety Activity Restrictions/Additional Instructions: Please have your heart doctor check your digoxin level in office at appointment. Please monitor your pulse rate at home. While at rest, target pulse rate should be 110 or below. In case it is staying above 110 even if you are not exerting herself, please contact your heart doctors office without delay. Please discuss with your heart doctor and primary doctor resuming lisinopril at lower dose, which is held for now due to soft blood pressures. Continue diuretic at home. Continue fluid restriction 1500 mL/day. Discharge Attestations Time Spent in Discharge Care*: greater than 30 min Quality Metrics Clinical Quality Measures During this hospital stay, did patient experience: None Coding Level of Care Code Acute [facility] FW DC note Diagnoses Atrial flutter I48.4 Atrial flutter type: atypical Ischemic cardiomyopathy I25.5 CHF exacerbation I50.23 Heart failure type: systolic CAD (coronary artery disease) I25.10 Associated angina: unspecified whether angina present Coronary Disease-Associated Artery/Lesion type: [place] artery [place] vs. transplanted heart: [place] heart Hyperlipidemia E78.2 Hyperlipidemia type: mixed hyperlipidemia Hypertension I10 Hypertension type: essential hypertension Pacemaker Z95.0
--- NOTE | 2021-03-08 12:33 | PC.SOCIAL ---
*IMM UPDATE* Gave patient IMM update. Provided copy of pg 2 of IMM. Verbalized understanding. 03/08/21 @ 6573 Initialed, dated, timed and placed in chart.
--- NOTE | 2021-03-08 12:37 | PC.NURSE ---
REceived discharge orders from Dr pepper. Discharge assessment completed. Medications finalized and sent to patient's pharmacy. printed packet and provided education on new medications, appointments/followups, and activity. Signature form signed. Patient taken out to family vehicle via wheelchair.
== END 2021-03-08 12:38 | disposition home or self-care (01) | DRG 280 ==
LOC: ER 14:58 → ICU 20:22 → CSU 03-05 10:07 → ICU 03-06 15:55
PROVIDERS: Internal Medicine; Admitting Provider Family Medicine; Emergency Provider Family Medicine; PCP Nurse Practitioner Family; Visit Provider Internal Medicine
PROC: B24BZZ4 Ultrasonography of Heart with Aorta, Transesophageal (ICD-10-PCS; CPT 93312; principal; 2021-03-06 12:00)
DX: I13.0 Hypertensive heart and chronic kidney disease with heart failure and stage 1 through stage 4 chronic kidney disease, or unspecified chronic kidney disease (principal); I50.23 Acute on chronic systolic (congestive) heart failure; I21.A1 Myocardial infarction type 2; I48.92 Unspecified atrial flutter; I82.622 Acute embolism and thrombosis of deep veins of left upper extremity; N18.9 Chronic kidney disease, unspecified; E11.22 Type 2 diabetes mellitus with diabetic chronic kidney disease; I25.10 Atherosclerotic heart disease of native coronary artery without angina pectoris; E78.2 Mixed hyperlipidemia; Z95.810 Presence of automatic (implantable) cardiac defibrillator; Z95.1 Presence of aortocoronary bypass graft; Z96.659 Presence of unspecified artificial knee joint; I25.5 Ischemic cardiomyopathy; D69.6 Thrombocytopenia, unspecified; I08.3 Combined rheumatic disorders of mitral, aortic and tricuspid valves; Z79.82 Long term (current) use of aspirin; I51.3 Intracardiac thrombosis, not elsewhere classified
CPT/HCPCS: 36415; 36416; 71045; 76705; 78014; 80053; 80061; 81003; 82962; 83721; 83735; 83880; 84100; 84443; 84484; 85025; 85610; 93005; 93306; 93312; 93320; 93325; 93970; 93971; 93998; 94664; 96372; 96374; 97161; 99285; A9540; A9567; J0282; J1160; J1650; J1815; J1940; J2704; J3475; J3490; J7060

== ENCOUNTER → 2021-03-12 10:20 | Outpatient (BNVA) | payer MEDICARE, MEDICAID, SELFPAY | PROVIDERS: PCP Nurse Practitioner Family; Visit Provider Nurse Practitioner Family | DX: I48.4 Atypical atrial flutter (principal); I50.9 Heart failure, unspecified; I10 Essential (primary) hypertension; Z95.0 Presence of cardiac pacemaker | CPT/HCPCS: 80162 ==

== ENCOUNTER → 2021-06-03 15:18 | Outpatient (BNVA) | payer MEDICARE, MEDICAID, SELFPAY | PROVIDERS: PCP Nurse Practitioner Family; Referring Provider Internal Medicine; Visit Provider Internal Medicine | DX: E11.9 Type 2 diabetes mellitus without complications (principal) | CPT/HCPCS: 99203; 99204 ==

== ENCOUNTER → 2021-08-11 10:37 | Outpatient (BNVA) | payer MEDICARE, MEDICAID, SELFPAY | PROVIDERS: PCP Nurse Practitioner Family; Visit Provider Internal Medicine | DX: E11.22 Type 2 diabetes mellitus with diabetic chronic kidney disease (principal); N18.30 Chronic kidney disease, stage 3 unspecified; E78.2 Mixed hyperlipidemia; I25.10 Atherosclerotic heart disease of native coronary artery without angina pectoris | CPT/HCPCS: 99214 ==

== ENCOUNTER 2021-12-18 06:31 | Outpatient (CLI) | payer MEDICARE, MEDICAID, SELFPAY ==
--- NOTE | 2021-12-18 07:01 | USCV_ITS ---
Abdirizak Johnie Age: 81 Gender: M : 1940 Exam Date: 12/18/2021 07:10 Ordering Phys: Phyllis Vick MINE MOTOR OPERATOR Technologist: Exam Location: [facility] [place] Indication: lt leg pain hx of lt leg dvt PROCEDURES: Venous duplex imaging was performed in only the left lower extremity. The following venous structures were evaluated: common femoral vein, profunda vein, proximal portion of the greater saphenous vein, superficial femoral vein, and the popliteal vein. In addition, the posterior tibial and peroneal trunk were evaluated. FINDINGS: Normal 2-D Doppler and augmentation and compressibility throughout the lower extremity venous structures. Additional imaging through the proximal calf veins also reveals no thrombus. Limited evaluation of the greater saphenous vein is patent with no thrombus. CONCLUSIONS No DVT left lower extremity. Dr. Marti Hansen DO (Electronically Signed) Final Date: 18 December 2021 08:00 S
== END 2021-12-18 06:32 | disposition home or self-care (01) ==
LOC: RAD 06:33
PROVIDERS: PCP Nurse Practitioner Family; Visit Provider Nurse Practitioner Family
DX: M79.605 Pain in left leg (principal); Z86.718 Personal history of other venous thrombosis and embolism
CPT/HCPCS: 93971

== ENCOUNTER 2021-12-31 08:48 | Outpatient (CLI) | payer MEDICARE, MEDICAID, SELFPAY ==
--- NOTE | 2021-12-31 09:46 | USCV_ITS ---
Johnie Reveles Age: 81 Gender: M : 1940 Exam Date: 12/31/2021 09:48 Ordering Phys: Pete Gibson M.D ([email or web address]) Technologist: Exam Location: [facility] [place] Indication: hx of rt endart Risk Factors: Previous Vascular Surgery: Right Brachial BP: / Left Brachial BP: / Right Left Velocity (cm/s) Spectral Plaque Velocity (cm/s) Spectral Plaque Syst/Diast Broadening Syst/Diast Broadening 73.90/ 15.40 Prox CCA 74.70 / 13.90 93.70/ 20.90 Hetro Mid CCA 66.20 / 13.90 97.00/ 19.80 Hetro Distal CCA 61.20 / 10.70 Hetro 102.50/19.80 Prox ICA 71.10 / 16.30 Hetro 108.10/27.60 Mid ICA 75.90 / 16.30 Hetro 91.50/ 26.50 Distal ICA 86.40 / 21.10 67.00 ECA 114.30 1.11 ICA/CCA 1.16 Vertebral 28.30/ 6.60 cm/s 36.60/ 7.60 cm/s CONCLUSIONS Right ICA stenosis <50%. Moderate atheromatous plaque right carotid bulb/ICA. Left ICA stenosis <50%. Moderate atheromatous plaque left carotid bulb/ICA. Normal antegrade Doppler flow noted in the right vertebral artery. Normal antegrade Doppler flow noted in the left vertebral artery. Brett Dunn MD (Electronically Signed) Final Date: 31 December 2021 11:27 S
== END 2021-12-31 08:49 | disposition home or self-care (01) ==
LOC: RAD 08:50
PROVIDERS: PCP Nurse Practitioner Family; Visit Provider Nurse Practitioner Family
DX: I65.23 Occlusion and stenosis of bilateral carotid arteries (principal)
CPT/HCPCS: 93880

== ENCOUNTER 2022-02-10 12:17 | Outpatient (CLI) | payer MEDICARE, MEDICAID, SELFPAY ==
--- NOTE | 2022-02-10 12:40 | USCV_ITS ---
Johnie Reveles Age: 81 Gender: M : 1940 Exam Date: 02/10/2022 13:28 Ordering Phys: Gurinder Perez MD Technologist: Melvin Hanson RVT [place] [facility] [place]: DIFFICULTY WALKING. L>R RIGHT LEFT Brachial 149.00 mmHg Brachial 135.00 mmHg Pressure (mmHg) Waveform Pressure (mmHg) Waveform 218.00 CONFIDENTIAL INVESTIGATOR 224.00 169.00 DPA 157.00 1.46 Ankle/Brachial Index 1.50 FINDINGS Supranormal resting ABIs bilaterally CONCLUSIONS No significant arterial obstruction, based on the above findings. Dr Sahil Luna MD [facility] (Electronically Signed) Final Date: 11 Feb 2022 14:12 S
== END 2022-02-10 12:18 | disposition home or self-care (01) ==
LOC: RAD 12:20
PROVIDERS: PCP Nurse Practitioner Family; Visit Provider Family Medicine
DX: M79.605 Pain in left leg (principal); R26.2 Difficulty in walking, not elsewhere classified
CPT/HCPCS: 93922

== ENCOUNTER → 2022-02-25 17:13 | Outpatient (BNVA) | payer MEDICARE, MEDICAID, SELFPAY | PROVIDERS: PCP Nurse Practitioner Family; Visit Provider Internal Medicine | DX: Z45.02 Encounter for adjustment and management of automatic implantable cardiac defibrillator (principal) ==

== ENCOUNTER 2022-03-08 11:43 | Outpatient (CLI) | payer MEDICARE, MEDICAID, SELFPAY ==
--- NOTE | 2022-03-08 11:49 | USCV_ITS ---
Johnie Reveles Age: 81 Gender: M : 1940 Exam Date: 03/08/2022 12:26 Ordering Phys: Gurinder Perez MD Technologist: Severo Madrigal [place] [facility] [place]: pad RIGHT LEFT Brachial 145.00 mmHg Brachial 146.00 mmHg Pressure (mmHg) Waveform Pressure (mmHg) Waveform 181.00 PLANNING CONSULTANT 170.00 141.00 DPA 167.00 1.20 Ankle/Brachial Index 1.10 123.00 Pre-Exercise Toe Pressure 99.00 0.84 Pre-Exercise Toe/Brachial Index 0.68 FINDINGS Resting RAO 1.2 on the right side and 1.1 on the left side Normal resting TBI on the right side Borderline low resting TBI on the left side CONCLUSIONS 1. Normal resting RAO and TBI on the right side suggesting no significant arterial obstruction 2. Normal resting RAO with a slightly diminished resting TBI on the left side suggesting mild PAD Dr Sahil Luna MD [facility] (Electronically Signed) Final Date: 09 March 2022 08:43 S
== END 2022-03-08 11:44 | disposition home or self-care (01) ==
LOC: RAD 11:44
PROVIDERS: PCP Nurse Practitioner Family; Visit Provider Family Medicine
DX: M79.605 Pain in left leg (principal)
CPT/HCPCS: 93922

== ENCOUNTER → 2022-03-19 09:05 | Outpatient (BNVA) | payer MEDICARE, MEDICAID, SELFPAY | PROVIDERS: PCP Nurse Practitioner Family; Visit Provider Internal Medicine | DX: Z45.02 Encounter for adjustment and management of automatic implantable cardiac defibrillator (principal) | CPT/HCPCS: 93284 ==

== ENCOUNTER 2022-03-29 09:25 | Outpatient (CLI) | payer MEDICARE, MEDICAID, SELFPAY ==
--- NOTE | 2022-03-29 09:38 | USCV_ITS ---
Johnie Reveles Age: 81 Gender: M : 1940 Exam Date: 03/29/2022 10:00 Ordering Phys: Gurinder Perez MD Technologist: [place] [facility] [place]ication: pad RIGHT LEFT Brachial 156.00 mmHg Brachial 152.00 mmHg Pressure (mmHg) Waveform Pressure (mmHg) Waveform 155.00 POST ACUTE CARE REGISTERED NURSE 188.00 159.00 DPA 159.00 1.30 Ankle/Brachial Index 1.20 155.00 Pre-Exercise Toe Pressure 133.00 0.99 Pre-Exercise Toe/Brachial Index 0.85 1.50 Post-Exercise Toe/Brachial Index 1.50 FINDINGS Resting RAO 1.3 on the right and 1.2 on the left Post exercise TBI of 1.5 on the right and 1.5 on the left CONCLUSIONS Features suggesting no significant arterial obstruction, based on the above findings. [id number] Dr Sahil Luna MD [facility] (Electronically Signed) Final Date: 30 March 2022 21:02 S
== END 2022-03-29 09:26 | disposition home or self-care (01) ==
PROVIDERS: PCP Nurse Practitioner Family; Visit Provider Family Medicine
DX: M79.605 Pain in left leg (principal)
CPT/HCPCS: 93922

== ENCOUNTER → 2022-04-30 10:46 | Outpatient (BNVA) | payer MEDICARE, MEDICAID, SELFPAY | PROVIDERS: PCP Nurse Practitioner Family; Visit Provider Nurse Practitioner Family | DX: I25.10 Atherosclerotic heart disease of native coronary artery without angina pectoris (principal); I77.9 Disorder of arteries and arterioles, unspecified; I11.0 Hypertensive heart disease with heart failure; I50.9 Heart failure, unspecified; Z95.810 Presence of automatic (implantable) cardiac defibrillator | CPT/HCPCS: 99214 ==

== ENCOUNTER → 2022-05-27 09:20 | Outpatient (BNVA) | payer MEDICARE, MEDICAID, SELFPAY | PROVIDERS: PCP Nurse Practitioner Family; Visit Provider Nurse Practitioner Family | DX: M25.531 Pain in right wrist (principal) | CPT/HCPCS: 73100 ==

== ENCOUNTER 2022-09-16 08:57 | Outpatient (CLI) | payer MEDICARE, MEDICAID, SELFPAY ==
--- NOTE | 2022-09-16 09:10 | XR_ITS ---
WS: [id number] Right hand, 3 views, 09/16/2022 Clinical Data: FOREIGN BODY GRANULOMA OF SOFT TISSUE OF R HAND Comparison: None. Findings: No fractures or dislocations are seen. The soft tissues are unremarkable. The joint space s are normal No radiopaque foreign body is seen. XR/XR hand RT min 3V* [id number] Impression: Negative right hand.
== END 2022-09-16 08:58 | disposition home or self-care (01) ==
LOC: RAD 09:03
PROVIDERS: PCP Nurse Practitioner Family; Visit Provider Nurse Practitioner Family
DX: M60.241 Foreign body granuloma of soft tissue, not elsewhere classified, right hand (principal)
CPT/HCPCS: 73130

== ENCOUNTER → 2022-10-29 09:50 | Outpatient (BNVA) | payer MEDICARE, MEDICAID, SELFPAY | PROVIDERS: PCP Nurse Practitioner Family; Visit Provider Internal Medicine | DX: I25.10 Atherosclerotic heart disease of native coronary artery without angina pectoris (principal); I77.9 Disorder of arteries and arterioles, unspecified; I11.0 Hypertensive heart disease with heart failure; I50.9 Heart failure, unspecified; I48.4 Atypical atrial flutter; Z95.810 Presence of automatic (implantable) cardiac defibrillator | CPT/HCPCS: 99214 ==

== ENCOUNTER → 2022-11-09 15:42 | Outpatient (BNVA) | payer MEDICARE, MEDICAID, SELFPAY | PROVIDERS: PCP Nurse Practitioner Family; Visit Provider Internal Medicine | DX: Z45.02 Encounter for adjustment and management of automatic implantable cardiac defibrillator (principal) | CPT/HCPCS: 93296 ==

== ENCOUNTER 2022-12-10 10:50 | Outpatient (CLI) | payer MEDICARE, MEDICAID, SELFPAY ==
--- NOTE | 2022-12-10 11:05 | XR_ITS ---
WS: [id number] EXAMINATION: XR knee RT 3V* [id number] REASON FOR EXAM: R KNEE PAIN COMPARISON: None available. ORDER DATE: 12/10/2022 11:12 AM FINDINGS: There is satisfactory alignment of the prostheses at the knee joint. There is satisfactory prosthesis positioning of the total knee replacement components. There is no sign of periprosthetic osseous abn ormality or hardware failure. Soft tissues are unremarkable. XR/XR knee RT 3V* [id number] IMPRESSION: Stable appearance of the total knee arthroplasty.
--- NOTE | 2022-12-10 11:05 | XR_ITS ---
WS: [id number] EXAMINATION: XR hip RT 2-3V wo/w pel* [id number] REASON FOR EXAM: R HIP PAIN COMPARISON: None available. ORDER DATE: 12/10/2022 11:12 AM TECHNIQUE: Frontal internal/external rotation views of the right hip were obtained. X-RAY FINDINGS: There are no fractures or dislocations. Normal motion with internal/external rotation is present. No degenerative changes. XR/XR hip RT 2-3V wo/w pel* [id number] IMPRESSION: 1. No fractures or dislocations of the right hip. 2. Normal motion with internal/external rotation.
== END 2022-12-10 10:51 | disposition home or self-care (01) ==
LOC: RAD 10:55
PROVIDERS: PCP Nurse Practitioner Family; Visit Provider Nurse Practitioner Family
DX: M25.561 Pain in right knee (principal); M25.551 Pain in right hip
CPT/HCPCS: 73502; 73562

== ENCOUNTER → 2022-12-13 10:10 | Outpatient (BNVA) | payer MEDICARE, MEDICAID, SELFPAY | PROVIDERS: PCP Nurse Practitioner Family; Referring Provider Nurse Practitioner Family; Visit Provider Specialist | DX: M79.641 Pain in right hand (principal) | CPT/HCPCS: 73130; 99203; 99204 ==

== ENCOUNTER → 2023-02-15 09:41 | Outpatient (BNVA) | payer MEDICARE, MEDICAID, SELFPAY | PROVIDERS: PCP Nurse Practitioner Family; Visit Provider Specialist | DX: G56.03 Carpal tunnel syndrome, bilateral upper limbs (principal) | CPT/HCPCS: 95908; 95909 ==

== ENCOUNTER → 2023-03-07 15:26 | Outpatient (BNVA) | payer MEDICARE, MEDICAID, SELFPAY | PROVIDERS: PCP Nurse Practitioner Family; Visit Provider Specialist | DX: M79.641 Pain in right hand (principal) | CPT/HCPCS: 99213 ==

== ENCOUNTER 2023-03-23 12:50 | Outpatient (CLI) | payer MEDICARE, MEDICAID, SELFPAY ==
--- NOTE | 2023-03-23 12:58 | CT_ITS ---
WS: [id number] CT HEAD NONCONTRAST HISTORY: NUMBNESS AND TINGLING IN LEFT ARM TECHNIQUE: Contiguous axial imaging performed through the brain in 2.5 mm imaging. Bone and soft tiss ue windows. Sagittal and coronal reformats reviewed. All CT scans at [facility] use at least one of these dose optimization techniques: automated exposure control; mA and/or kV adjustment per pa tient size (includes targeted exams where dose is matched to clinical indication); or iterative recon struction. DLP: 1147.36 mGy.cm COMPARISON: None available. No acute intracranial hemorrhage, midline shift or mass effect. Mild bilateral cerebral and cerebellar atrophy with small vessel ischemic disease. Ventricles: Normal size with no hydrocephalus. No inferior displacement of the cerebellar tonsils. Paranasal sinuses: Moderate mucoperiosteal thickening involving the LEFT sphenoid sinus. No air-fluid levels. Mastoid air cells: Well pneumatized. Calvarium and scalp: Skull is intact with no soft tissue edema or swelling. Metallic artifact near th e left ear. CT/CT head wo con* [id number] IMPRESSION: 1. No acute intracranial hemorrhage or edema. 2. Mild atrophy and small vessel ischemic disease. No infarct identified.
== END 2023-03-23 12:51 | disposition home or self-care (01) ==
LOC: RAD 12:52
PROVIDERS: PCP Nurse Practitioner Family; Visit Provider Nurse Practitioner Family
DX: R20.0 Anesthesia of skin (principal); R20.2 Paresthesia of skin
CPT/HCPCS: 70450

== ENCOUNTER → 2023-04-29 09:19 | Outpatient (BNVA) | payer MEDICARE, MEDICAID, SELFPAY | PROVIDERS: PCP Nurse Practitioner Family; Visit Provider Internal Medicine | DX: I25.10 Atherosclerotic heart disease of native coronary artery without angina pectoris (principal); I77.9 Disorder of arteries and arterioles, unspecified; I11.0 Hypertensive heart disease with heart failure; I50.9 Heart failure, unspecified; I48.4 Atypical atrial flutter; Z95.0 Presence of cardiac pacemaker; Z79.01 Long term (current) use of anticoagulants | CPT/HCPCS: 99214 ==

== ENCOUNTER 2023-05-18 09:43 | Outpatient (CLI) | payer MEDICARE, MEDICAID, SELFPAY ==
--- NOTE | 2023-05-18 10:15 | USCV_ITS ---
JUAN Abdirizak Johnie Age: 83 Gender: M : 1940 Exam Date: 05/18/2023 10:01 Ordering Phys: Pete Gibson M.D ([email or web address]) Technologist: Khadijah Wall Exam Location: [facility] [place] Indication: CP, SOB BP: 118 / 68 HR: 69 Rhythm: Sinus Technical Quality: Adequate MEASUREMENTS (Male / Female) Normal Values 2D ECHO LV Diastolic Diameter PLAX 5.0 cm 4.2 - 5.9 / 3.9 - 5.3 cm LV Systolic Diameter PLAX 3.4 cm IVS Diastolic Thickness 1.6 cm 0.6 - 1.0 / 0.6 - 0.9 cm IVS Systolic Thickness 1.6 cm LVPW Diastolic Thickness 0.9 cm 0.6 - 1.0 / 0.6 - 0.9 cm LVPW Systolic Thickness 1.3 cm LVOT Diameter 2.0 cm LV Ejection Fraction 2D Teich 60.3 % LV Ejection Fraction MOD 2C 69.4 % LV Ejection Fraction 2C AL 69.0 % LA Diameter 4.0 cm LA Width 3.6 cm LA Height 6.0 cm RA Width 4.3 cm RA Height 5.4 cm Aorta at Sinotubular Diameter 0.0 cm IVC Diameter 2.0 cm M-MODE Aortic Annulus Diameter 3.3 cm LA Ao Ratio MM 1.4 MV E Point Septal Separation 1.2 cm DOPPLER AV Peak Velocity 200.0 cm/s LVOT Peak Velocity 60.0 cm/s AV Area Cont Eq vti 1.2 cm squared AV Area Cont Eq pk 1.0 cm squared MV Peak Velocity 104.0 cm/s MV Area PHT 3.3 cm squared Mitral E to A Ratio 0.9 MV E' Velocity 41.5 cm/s Mitral E to MV E' Ratio 15.0 Mitral E to LV E' Lateral Ratio 11.2 Mitral E to LV E' Septal Ratio 22.5 TR Peak Velocity 242.0 cm/s TR Peak Gradient 23.4 mmHg Right Atrial Pressure 5.0 mmHg Pulmonary Artery Systolic Pressu 28.4 mmHg PV Peak Velocity 101.0 cm/s RV Acceleration Time 0.1 s RV Ejection Time 0.3 s RV AcT/ET 0.3 FINDINGS Left Ventricle Left ventricle is normal size. LV systolic function is normal with EF of 50-55%. No regional wall motion abnormalities are seen. Grade 1 diastolic dysfunction Right Ventricle Normal in size and function Right Atrium Normal in size. Pacemaker wire noted Left Atrium Normal in size Mitral Valve Structurally normal mitral valve. Mild mitral regurgitation. Aortic Valve Aortic valve is thickened and calcified. Mild to moderate aortic stenosis with aortic valve area of 1.19cm2 and mean gradient across aortic valve of 8mmHg. Tricuspid Valve Mild tricuspid regurgitation. RVSP is normal Pulmonic Valve Not well visualized Pericardium Normal Aorta Mildly dilated ascending aorta IVC Appears to be normal CONCLUSIONS LV systolic function is normal with EF of 50 to 55% Grade 1 diastolic dysfunction Mild mitral regurgitation. Mild to modearte aortic stenosis Mild tricuspid regurgitation. Mildly dilated ascending aorta Compared to prior echocardiogram from 2020, patient's LV systolic function is normal now. Pete Gibson MD (Electronically Signed) Final Date: 01 June 2023 17:29 S
--- NOTE | 2023-05-18 10:50 | XR_ITS ---
WS: [id number] Exam: XR knee LT 3V* [id number] Date/Time of Exam: 05/18/2023 10:58 AM Reason For Exam: KNEE PAIN JOINT LEFT No fracture or dislocation. The joint compartments appear relatively well-maintained. There may be lo ose joint bodies present. Minimal degenerative change of the medial compartment. Mild spurring of the posterior patella. No significant joint effusion. Surgical clips seen in the medial soft tissues damion ng the upper tibia. IMPRESSION1. Minimal degenerative change of the medial compartment. There may be loose joint bodies. 2. No fracture or significant joint effusion.
[2023-05-18] MEDS: perflutren protein-a microsphr 0.22 mg/mL SDV 3 mL IV (10:55)
== END 2023-05-18 09:44 | disposition home or self-care (01) ==
PROVIDERS: PCP Nurse Practitioner Family; Visit Provider Internal Medicine
DX: M25.562 Pain in left knee (principal)
CPT/HCPCS: 73562; C8929; Q9956

== ENCOUNTER → 2023-08-24 16:53 | Outpatient (BNVA) | payer MEDICARE, MEDICAID, SELFPAY | PROVIDERS: PCP Nurse Practitioner Family; Visit Provider Internal Medicine | DX: Z45.02 Encounter for adjustment and management of automatic implantable cardiac defibrillator (principal) | CPT/HCPCS: 93296 ==

== ENCOUNTER → 2024-01-02 15:01 | Outpatient (BNVA) | payer MEDICARE, MEDICAID, SELFPAY | PROVIDERS: PCP Nurse Practitioner Family; Visit Provider Internal Medicine | DX: I25.10 Atherosclerotic heart disease of native coronary artery without angina pectoris (principal); I77.9 Disorder of arteries and arterioles, unspecified; I11.0 Hypertensive heart disease with heart failure; I50.9 Heart failure, unspecified; I48.4 Atypical atrial flutter; Z95.0 Presence of cardiac pacemaker | CPT/HCPCS: 99214 ==

== ENCOUNTER → 2024-06-04 09:00 | Outpatient (BNVA) | payer MEDICARE, MEDICAID, SELFPAY | PROVIDERS: PCP Nurse Practitioner Family; Visit Provider Internal Medicine | DX: I25.10 Atherosclerotic heart disease of native coronary artery without angina pectoris (principal); I77.9 Disorder of arteries and arterioles, unspecified; I11.0 Hypertensive heart disease with heart failure; I50.9 Heart failure, unspecified; I48.4 Atypical atrial flutter; Z95.0 Presence of cardiac pacemaker | CPT/HCPCS: 99214 ==

== ENCOUNTER → 2024-06-25 09:47 | Outpatient (BNVA) | payer MEDICARE, MEDICAID, SELFPAY | PROVIDERS: PCP Nurse Practitioner Family; Referring Provider Internal Medicine; Visit Provider Internal Medicine Cardiovascular Disease | DX: Z45.02 Encounter for adjustment and management of automatic implantable cardiac defibrillator (principal); Z79.01 Long term (current) use of anticoagulants; I25.118 Atherosclerotic heart disease of native coronary artery with other forms of angina pectoris; E78.2 Mixed hyperlipidemia; I11.0 Hypertensive heart disease with heart failure; I50.22 Chronic systolic (congestive) heart failure; E11.9 Type 2 diabetes mellitus without complications; I77.9 Disorder of arteries and arterioles, unspecified; I25.10 Atherosclerotic heart disease of native coronary artery without angina pectoris; I48.4 Atypical atrial flutter; Z79.84 Long term (current) use of oral hypoglycemic drugs | CPT/HCPCS: 99214 ==

== ENCOUNTER 2024-06-26 10:05 | Outpatient (CLI) | payer MEDICARE, MEDICAID, SELFPAY ==
[2024-06-26 10:51] LABS: Basophils % 0.6 %; Eosinophils # 0.2 10^3/uL (0.0-0.8); Eosinophils % 2.3 %; Hematocrit 44.4 % (37-53); Lymphocytes # 1.7 10^3/uL (0.8-4.8); Lymphocytes % 26.9 %; Mean Corpuscular HGB Conc 32.4 g/dL (30-55); Mean Corpuscular Hemoglobin 31.4 pg (27-33); Mean Corpuscular Volume 96.7 fl (82-101); Mean Platelet Volume 10.6 fL (7.4-10.4); Monocytes # 0.6 10^3/uL (0.2-0.9); Monocytes % 9.8 %; Neutrophils # 3.85 10^3/uL (1.8-7.7); Neutrophils % 60.2 %; Nucleated Red Blood Cells % 0 %; Platelet Count 151 10^3/cmm (157-399); Red Blood Count 4.59 10^6/uL (3.85-5.65); Red Cell Distribution Width 13.5 % (12.1-15.1)
[2024-06-26 10:58] LABS: Anion Gap 12.7 (5-19); Blood Urea Nitrogen 25 mg/dL (8-23); Calcium 9.2 mg/dL (8.5-10.5); Carbon Dioxide 27 mmol/L (22-29); Chloride 103 mmol/L (98-107); Glucose 199 mg/dL (65-115); Osmolality Calculated 296 mOsm/kg (285-295); Potassium 4.7 mmol/L (3.5-5.1); Sodium 138 mmol/L (136-145)
[2024-06-26 11:02] LABS: INR 1.18 (0.8-1.2)
== END 2024-06-26 10:06 | disposition home or self-care (01) ==
LOC: LAB 10:07
PROVIDERS: PCP Nurse Practitioner Family; Visit Provider Internal Medicine Cardiovascular Disease
DX: R06.02 Shortness of breath (principal); Z79.01 Long term (current) use of anticoagulants; I48.91 Unspecified atrial fibrillation; I25.118 Atherosclerotic heart disease of native coronary artery with other forms of angina pectoris
CPT/HCPCS: 36415; 80048; 85025; 85610; 86850; 86900

== ENCOUNTER → 2024-07-20 11:48 | Outpatient (BNVA) | payer MEDICARE, MEDICAID, SELFPAY | PROVIDERS: PCP Nurse Practitioner Family; Visit Provider Internal Medicine | DX: Z45.02 Encounter for adjustment and management of automatic implantable cardiac defibrillator (principal); I50.22 Chronic systolic (congestive) heart failure | CPT/HCPCS: 36415; 85025 ==

== ENCOUNTER 2024-07-27 07:19 | Outpatient (CLI) | payer MEDICARE, MEDICAID, SELFPAY ==
--- NOTE | 2024-07-25 09:31 | PC.NURSE ---
Called patient about stopping eliquis, stated he stopped med on tuesday07/23/24, is taking lovenox injections now.
[2024-07-27] VITALS (10 sets, daily range): BP systolic 131–179; BP diastolic 66–106; PULSE 69–89; RESP 16–18; TEMP 36.3–36.8; O2SAT 93–98; BMI 29.3
[2024-07-27 08:01] LABS: Basophils % 0.7 %; Eosinophils # 0.2 10^3/uL (0.0-0.8); Eosinophils % 3.9 %; Hematocrit 41.9 % (37-53); Lymphocytes # 1.6 10^3/uL (0.8-4.8); Lymphocytes % 27.8 %; Mean Corpuscular HGB Conc 33.4 g/dL (30-55); Mean Corpuscular Hemoglobin 31.8 pg (27-33); Mean Corpuscular Volume 95.2 fl (82-101); Mean Platelet Volume 10.8 fL (7.4-10.4); Monocytes # 0.5 10^3/uL (0.2-0.9); Monocytes % 9.5 %; Neutrophils % 57.9 %; Nucleated Red Blood Cells % 0 %; Platelet Count 150 10^3/cmm (157-399); Red Cell Distribution Width 13.6 % (12.1-15.1); White Blood Count 5.69 10^3/uL (3.29-11.43)
--- NOTE | 2024-07-27 08:06 | PM.HP ---
Providers/Chief Complaint Primary Care Provider: Phyllis Vick Chief Complaint: I44.2 History of Present Illness Johnie Reveles is a 84 year old male with a history of atherosclerotic heart diseas, ischemic cardiomyopathy, status post ASSEMBLER GOLD FRAME-D, was found to have DAIRY CHEMIST on the device. Patient appears to be almost pacer dependent. Denies any chest pain or palpitations. No dizziness or syncopal episode. No unusual shortness of breath. Has been compliant with medications. He is on long-term oral anticoagulation for atrial flutter/fibrillation. No history for any CVA, Recent DVT or pulmonary embolism. Denies any fever, chills or cough. No other specific complaints. This device was implanted in May 2016. The atrial, ventricular and the LV leads were found to be functioning okay. The lead impedance in the acceptable range. He stop the Eliquis last Tuesday. Has been taking subcu Lovenox up until yesterday A tree limb fell on him couple of weeks ago , sustained multiple skin lacerations. The skin lacerations are fairly healed at this time. No signs of any active infection Review of Systems Narrative: CONSTITUTIONAL: No fever or chills. EYES: No blurring of vision or other visual disturbances lately. ENT: No hoarseness of voice, auditory disturbances or sore throat. CARDIOVASCULAR: As mentioned above. RESPIRATORY: No significant cough. GASTROINTESTINAL: No hematemesis or melena. GENITOURINARY: No dysuria or hematuria. INTEGUMENTARY: Healed skin lacerations NEURO: No transient ischemic attacks or amaurosis. PSYCHIATRIC: No history of psychosis or major depression. HEMATOLOGIC: No bleeding disorders or significant anemia. ENDOCRINE: No history of polyuria or polydipsia. MUSCULOSKELETAL: No recent joint pain or swelling. ALLERGY/IMMUNOLOGY: As mentioned above. Medications/Allergies Home Medications Medication Instructions Recorded Confirmed Last Taken Type fluticasone propionate 50 2 spray intranasal DAILY 01/28/21 07/26/24 03/03/21 03:00 History mcg/actuation nasal spray,suspension montelukast 10 mg tablet 10 mg PO DAILY 01/28/21 07/26/24 07/26/24 19:30 History pantoprazole 40 mg granules 40 mg PO DAILY@0700 01/28/21 07/26/24 07/26/24 19:30 History delayed-release for susp in packet (Protonix) pregabalin 75 mg capsule (Lyrica) 75 mg PO BID@0700,1900 01/28/21 07/27/24 07/27/24 05:30 History rosuvastatin 40 mg tablet 40 mg PO DAILY@1900 01/28/21 07/26/24 07/26/24 19:30 History tamsulosin 0.4 mg capsule 0.4 mg PO DAILY@1900 01/28/21 07/26/24 07/26/24 19:30 History apixaban 5 mg tablet (Eliquis) 2.5 mg (1/2 x 5 mg) PO 03/08/21 07/27/24 07/23/24 Rx BID@0900,2100 #60 tabs furosemide 40 mg tablet 20 mg PO DAILY 03/12/21 07/27/24 07/26/24 07:00 History dapagliflozin propanediol 10 mg 10 mg PO DAILY 07/31/21 07/26/24 07/27/24 05:30 History tablet (Farxiga) fenofibrate 50 mg capsule 50 mg PO DAILY 04/30/22 07/26/24 07/27/24 05:30 History sitagliptin phosphate 50 mg tablet 50 mg PO DAILY 04/30/22 07/26/24 07/27/24 05:30 History (Januvia) imiquimod 5 % topical cream packet 1 applic topical ONCE #24 ea 11/19/22 07/26/24 Unknown Rx metoprolol tartrate 50 mg tablet 50 mg PO BID@0900,2100 #180 tabs 02/21/23 07/26/24 07/27/24 05:30 Rx digoxin 62.5 mcg (0.0625 mg) tablet 62.5 mcg PO DAILY #90 tabs 08/12/23 07/27/24 07/25/24 Rx enoxaparin 80 mg/0.8 mL 80 mg (0.8 mL) SUBCUT DAILY 2 days 06/29/24 07/27/24 07/26/24 12:00 Rx subcutaneous syringe #1.6 mL Allergies Allergy/AdvReac Type Severity Reaction Status Date / Time heparin Allergy Unknown Unknown Verified 07/26/24 07:32 PFSH Acute PFSH: Medical History Diabetes mellitus ICD (implantable cardioverter-defibrillator) in place Ischemic cardiomyopathy CHF (congestive heart failure) CAD (coronary artery disease) Hyperlipidemia Hypertension Pacemaker Surgical History History of back surgery Hx of total knee arthroplasty H/O heart bypass surgery H/O shoulder surgery Family History Mother Alzheimer's dementia Father No problems noted. Other Hypertension Social History Smoking and tobacco/nicotine status: never used tobacco/nicotine Alcohol intake: current Alcohol type: wine Substance/Drug Use: never Vitals/I&O/Wt Last Vital Signs Temp 98.1 F 07/27/24 07:35 Pulse 75 07/27/24 07:35 Resp 18 07/27/24 07:35 BP 172/106 07/27/24 07:35 Pulse Ox 95 07/27/24 07:35 O2 Del Method Room Air 07/27/24 07:35 Weight last 48 hrs Weight 182 lb Physical Exam Narrative: GENERAL: The patient is alert and oriented times three. Not in any acute distress. HEENT: No significant pallor, icterus or lymphadenopathy.Oral cavity: There are no mucous membrane lesions. NECK: Trachea appears to be central. No masses noted. No JVD or thyromegaly appreciated. RESPIRATORY: Chest is symmetrical. No intercostals muscle retraction or any accessory muscle activation. There is no chest wall tenderness. Breath sounds are heard bilaterally. No rales or rhonchi heard. No evidence of any consolidation. BREASTS: Deferred. HEART: The heart sounds are normal. No S3 or S4. Short systolic murmur at the left side. No pericardial rub ABDOMEN: No vessel pulsations or distention. No tenderness. No organomegaly appreciated. Bowel sounds are normally heard. : Deferred. RECTAL: Deferred. LYMPHATIC: No lymphadenopathy noted in the neck. EXTREMITIES: No edema or cyanosis. No clubbing. MUSCULOSKELETAL: No acute joint deformities or swelling SKIN: Healed skin lacerations. NEUROPSYCHIATRIC: The patient is alert and oriented x3. Appears to be in a good mood. No tremors or rigidity noted. Data 07/27/24 07:45 07/27/24 07:45 Other Labs: Laboratory Last Values WBC 5.69 10^3/uL (3.29-11.43) 07/27/24 07:45 RBC 4.40 10^6/uL (3.85-5.65) 07/27/24 07:45 Hgb 14.00 g/dL (11.27-16.99) 07/27/24 07:45 Hct 41.9 % (37-53) 07/27/24 07:45 MCV 95.2 fl (82-101) 07/27/24 07:45 MCH 31.8 pg (27-33) 07/27/24 07:45 MCHC 33.4 g/dL (30-55) 07/27/24 07:45 RDW 13.6 % (12.1-15.1) 07/27/24 07:45 Plt Count 150 10^3/cmm (157-399) L 07/27/24 07:45 MPV 10.8 fL (7.4-10.4) H 07/27/24 07:45 Neut % (Auto) 57.9 % 07/27/24 07:45 Lymph % (Auto) 27.8 % 07/27/24 07:45 [place] % (Auto) 9.5 % 07/27/24 07:45 Eos % (Auto) 3.9 % 07/27/24 07:45 Baso % (Auto) 0.7 % 07/27/24 07:45 Neut # (Auto) 3.30 10^3/uL (1.8-7.7) 07/27/24 07:45 Lymph # (Auto) 1.6 10^3/uL (0.8-4.8) 07/27/24 07:45 [place] # (Auto) 0.5 10^3/uL (0.2-0.9) 07/27/24 07:45 Eos # (Auto) 0.2 10^3/uL (0.0-0.8) 07/27/24 07:45 Baso # (Auto) 0.0 10^3/uL (0.0-0.1) 07/27/24 07:45 Nucleated RBC % (auto) 0 % 07/27/24 07:45 Nucleated RBCs # 0.0 /100WBC 07/27/24 07:45 Sodium 142 mmol/L (136-145) 07/27/24 07:45 Potassium 4.3 mmol/L (3.5-5.1) 07/27/24 07:45 Chloride 104 mmol/L (98-107) 07/27/24 07:45 Carbon Dioxide 25 mmol/L (22-29) 07/27/24 07:45 Anion Gap 17.3 (5-19) 07/27/24 07:45 GFR Calculation Not Reportable 07/27/24 07:45 Calcium 9.2 mg/dL (8.5-10.5) 07/27/24 07:45 A&P Assessment and plan (1) ICD (implantable cardioverter-defibrillator) battery depletion: Patient has DAIRY CHEMIST on the device. Scheduled to have the revision today (2) Atrial flutter: Currently with a controlled ventricular response rate. Patient is off the Eliquis and was bridged with Lovenox. Seems to be stable Qualifiers: Atrial flutter type: atypical Qualified Code(s): I48.4 - Atypical atrial flutter (3) Ischemic cardiomyopathy: Since the patient has no evidence of any cardiac decompensation, is advised to continue on the current measures. The current medications were reviewed. (4) CHF exacerbation: Currently the heart failure seems to be compensated. Qualifiers: Heart failure type: systolic Qualified Code(s): I50.23 - Acute on chronic systolic (congestive) heart failure (5) CAD (coronary artery disease): Patient has no specific symptoms of coronary insufficiency. Will continue on the current medications. Qualifiers: Associated angina: unspecified whether angina present Coronary Disease-Associated Artery/Lesion type: [place] artery [place] vs. transplanted heart: [place] heart Qualified Code(s): I25.10 - Atherosclerotic heart disease of [place] coronary artery without angina pectoris (6) Hyperlipidemia: Continue on the current management. Qualifiers: Hyperlipidemia type: mixed hyperlipidemia Qualified Code(s): E78.2 - Mixed hyperlipidemia (7) Hypertension: The blood pressure is of stage II. We will optimize the antihypertensive medications. Qualifiers: Hypertension type: essential hypertension Qualified Code(s): I10 - Essential (primary) hypertension Plan The risk of bleeding, hematoma, vascular injury, infection, e and other concomitant complications were explained in detail. The patient and the family understood this well and consented to proceed. Patient may require overnight stay after the revision for IV antibiotics Attestations Medical Necessity Statement*: Overnight stay in the hospital for IV antibiotic and monitoring Coding Level of Care Code 18388 Diagnoses ICD (implantable cardioverter-defibrillator) battery depletion Z45.02 Atypical atrial flutter I48.4 Atrial flutter type: atypical Ischemic cardiomyopathy I25.5 Acute on chronic systolic congestive heart failure I50.23 Heart failure type: systolic Coronary artery disease involving [place] coronary artery of [place] heart, unspecified whether angina present I25.10 Associated angina: unspecified whether angina present Coronary Disease-Associated Artery/Lesion type: [place] artery [place] vs. transplanted heart: [place] heart Mixed hyperlipidemia E78.2 Hyperlipidemia type: mixed hyperlipidemia Essential hypertension I10 Hypertension type: essential hypertension
[2024-07-27 08:20] LABS: Anion Gap 17.3 (5-19); Blood Urea Nitrogen 25 mg/dL (8-23); Calcium 9.2 mg/dL (8.5-10.5); Carbon Dioxide 25 mmol/L (22-29); Chloride 104 mmol/L (98-107); Glucose 203 mg/dL (65-115); Osmolality Calculated 304 mOsm/kg (285-295); Potassium 4.3 mmol/L (3.5-5.1); Sodium 142 mmol/L (136-145)
--- NOTE | 2024-07-27 08:26 | W.PM.OPSUD ---
Surgery/Procedure H&P Update DATE OF PROCEDURE: July 27, 2024 DATE H&P PERFORMED: 07/27/24 H&P UPDATE INFORMATION: I have reviewed H&P completed within last 30 days, I have examined patient prior to procedure and Changes to prior documentation as noted here CHANGES TO PREVIOUS DOCUMENTATION: Patient has some skilled skin lacerations-sustained the lacerations as a tree limb fell on him recently PRIMARY INDICATION FOR PROCEDURE: CORRUGATED FASTENER DRIVER on the device PLANNED PROCEDURE: Operation Date: 07/27/24 08:30 Proposed Procedures p ICD Generator Exchange/Change - REM/REP OF ICD(Not Applicable) - Sahil Luna MD PATIENT REASSESSED PRIOR TO SEDATION, WITH NO CHANGE NOTED: Yes PHYSICAL EXAM: alert, oriented x 3, clear to auscultation bilaterally and regular rate & rhythm AIRWAY EVAL/ANESTHESIA PLAN: normal airway, see other exam findings, ASA III, Monitored Anesthesia, Local Anesthesia, Risks, benefits & alternatives of sedation and/or procedure discussed and Patient agrees to continue as planned
[2024-07-27 08:27] LABS: Creatinine Clr Calc Pharmacy 41.8973
[2024-07-27 09:19] LABS: INR 1.02 (0.8-1.2)
--- NOTE | 2024-07-27 10:21 | P.OP_ITS ---
Operative Report Date of procedure: July 27, 2024 Surgeon: Sahil Luna MD Procedure: PROCEDURE:BALING MACHINE OPERATOR-D REVISION PREOPERATIVE DIAGNOSIS: BALING MACHINE OPERATOR-D elective replacement indication. POSTOPERATIVE DIAGNOSIS: BALING MACHINE OPERATOR-D elective replacement indication. ESTIMATED BLOOD LOSS: None COMPLICATIONS: None. BRIEF HISTORY: The patient is 84-year-old white male who had a BALING MACHINE OPERATOR-D implantation for primary prophylaxis/heart failure/bradycardia. The patient was found to have elective replacement indication, during routine office followup evaluation. For further management of patient's condition and for the symptomatic bradycardia, the patient required an BALING MACHINE OPERATOR-D revision. Patient has a history of ASHD, cardiomyopathy, intermittent atrial flutter and congestive heart failure The procedure was explained to the patient and his in detail with the risks and benefits. The risks of bleeding, hematoma, vascular injury, infection and other concomitant complications were explained in detail, which the patient understood well and consented to proceed. PROCEDURES PERFORMED: 1. Explantation of the old BALING MACHINE OPERATOR-D device . 2. Implantation of the new BALING MACHINE OPERATOR-D device The patient brought to the Cardiac Staffing Administrator. The left side of the neck and the subclavian area were cleaned and draped in a sterile fashion. 1% Xylocaine was used for local anesthetic agent. A 2 inch long incision was made just below the previous pacemaker scar. By sharp and blunt dissection, the BALING MACHINE OPERATOR-D pocket was accessed. The old generator was delivered from the pocket. The generator was detached from the lead s. The new generator was attached to the lead. The BALING MACHINE OPERATOR-D pocket was copiously irrigated with vancomycin solution. Complete hemostasis was achieved. The lead was positioned behind the generator and the generator was attached to the pectoralis fascia by suturing with 0 Surgilon. Sponge counts were confirmed. The ICD pocket was closed in layers. Skin was approximated using 4-0 Vicryl. EXPLANTED DEVICE: BALING MACHINE OPERATOR-D device: Date of implant 06/01/1960 Brand: [employer]. Model number: [id number]. Serial number: [id number]. IMPLANTED DEVICES: 1. Ventricular Lead: Date of implantation: 06/01/2016 Model number: [id number] Serial number: [id number] Make: Medtronic. 2. Atrial Lead Date of implantation 06/01/2016 Model number 5076 Serial number [id number] 3. LV lead Data implantation-06/01/2016 Model number 4598 Serial number [id number] 4. Implanted Generator: Date of implantation 07/27/2024 Brand: [place] XT HF Quad BALING MACHINE OPERATOR-D MRI SureScan. Model number: [id number] Serial number: [id number] Stimulation Threshold: Through the Device--the ventricular sensing was 12.6 millivolts. Lead 3 and 42 and the pacing threshold was 0.5 volts at 0.4 milliseconds. The atrial sensing was 2.1 millivolts. The lead impedance was 532 ohms and the pacing threshold was 0.5 volts at 0.4 ms. The HV lead impedance was 82/52 ohms. The LV lead impedance was 1007 ohms. Pacing threshold of 1.0 V and at the pulse width of 0.4 ms The pacemaker was set for DDDR mode with an upper rate of 130 and a lower rate of 70. The DFT testing was not done Ventricular tachycardia detection rate was set at 167 bpm The ventricular fibrillation detection rate was set at 188 bpm A pressure dressing was applied over the BALING MACHINE OPERATOR-D site. The patient was transferred back to medical floor in stable condition.
[2024-07-27] MEDS: ceFAZolin 2,000 mg SDV 2000 MG IVP (16:00)
[2024-07-27] MEDS: tamsulosin 0.4 mg Capsule PO (18:01)
[2024-07-27] MEDS: pregabalin 75 mg Capsule PO (18:01)
[2024-07-27] MEDS: atorvastatin 40 mg Tablet PO (18:01)
[2024-07-27] MEDS: metoprolol tartrate 50 mg Tablet PO (20:24)
[2024-07-28] VITALS: BP 162/78; PULSE 70; RESP 17; TEMP 36.8; O2SAT 93
[2024-07-28] MEDS: ceFAZolin 2,000 mg SDV 2000 MG IVP ×2 (00:34→09:12)
[2024-07-28] MEDS: sodium chloride 0.9% 1,000 ML 75 ML IV (00:42)
[2024-07-28 04:00] VITALS: BP 168/80; PULSE 71; RESP 17; TEMP 37; O2SAT 92
[2024-07-28 06:00] VITALS: PULSE 69
[2024-07-28] MEDS: pantoprazole DR 40 mg Tablet PO (06:04)
[2024-07-28] MEDS: pregabalin 75 mg Capsule PO (06:04)
--- NOTE | 2024-07-28 06:21 | ECG_ITS ---
[facility] Date[facility] 2024-07-28 Pat Name: Johnie Reveles Department: Room: 260 Gender: Male Cane Weigher: : 1940 Requested By: Sahil Luna Order Number: [id number] Phipps MD: Liset Mueller M.D. Measurements Intervals [place] Rate: 71 P: 141 ME: 173 QRS: 130 QRSD: 204 T: -18 QT: 505 QTc: 551 Interpretive Statements ELECTRONIC ATRIAL PACEMAKER ELECTRONIC VENTRICULAR PACEMAKER ABNORMAL RHYTHM ECG Compared to ECG 03/05/2021 20:25:42 No significant changes Electronically Signed On 07-28-2024 16:02:09 BASKETBALL ASSEMBLER by Liset Mueller M.D. [email or web address]
[2024-07-28 07:44] VITALS: BP 169/78; PULSE 69; RESP 18; TEMP 36.9; O2SAT 94
[2024-07-28 09:13] VITALS: PULSE 69
[2024-07-28] MEDS: fenofibrate 48 mg Tablet PO (09:13)
[2024-07-28] MEDS: digoxin 125 mcg Tablet 62.5 MCG PO (09:13)
[2024-07-28] MEDS: metoprolol tartrate 50 mg Tablet PO (09:14)
[2024-07-28] MEDS: montelukast sodium 10 mg Tablet PO (09:14)
[2024-07-28] MEDS: FUROsemide 40 mg Tablet 20 MG PO (09:14)
[2024-07-28] MEDS: sitagliptin 100 mg Tablet 50 MG PO (09:14)
[2024-07-28 12:00] VITALS: BP 161/70; PULSE 69; RESP 18; TEMP 36.8; O2SAT 95
[2024-07-28] MEDS: cephALEXin 500 mg Capsule PO (12:49)
--- NOTE | 2024-07-28 14:11 | PC.NURSE ---
Discharge paperwork was explained to patient and , all questions were answered. Telemetry and IV was removed. Patient escorted to main lobby via wheelchair by this nurse. Patient's carried all belongings down.
--- NOTE | 2024-07-28 14:45 | PM.DCS ---
Discharge Providers Date of Admission: July 27, 2024 Date of Discharge: July 28, 2024 Attending Provider at Discharge: Sahil Luna MD Primary Care Provider: Phyllis Vick Diagnoses at Discharge Discharge Diagnosis (1) ICD (implantable cardioverter-defibrillator) battery depletion: Status: Acute (2) Atrial flutter: Status: Acute Qualifiers: Atrial flutter type: atypical Qualified Code(s): I48.4 - Atypical atrial flutter (3) Ischemic cardiomyopathy: (4) CHF exacerbation: Status: Resolved Qualifiers: Heart failure type: systolic Qualified Code(s): I50.23 - Acute on chronic systolic (congestive) heart failure (5) CAD (coronary artery disease): Status: Acute Qualifiers: Associated angina: unspecified whether angina present Coronary Disease-Associated Artery/Lesion type: [place] artery [place] vs. transplanted heart: [place] heart Qualified Code(s): I25.10 - Atherosclerotic heart disease of [place] coronary artery without angina pectoris (6) Hyperlipidemia: Status: Acute Qualifiers: Hyperlipidemia type: mixed hyperlipidemia Qualified Code(s): E78.2 - Mixed hyperlipidemia (7) Hypertension: Status: Acute Qualifiers: Hypertension type: essential hypertension Qualified Code(s): I10 - Essential (primary) hypertension Reason for Visit Reason for Visit: I44.2 Hospital Course Hospital Course This is a 84-year-old male patient who was admitted electively for ICD battery change. The procedure was successfully performed by Dr. Luna yesterday. Overnight patient remains asymptomatic. His vitals are stable. No issues with the insertion site of pacemaker. Clinically hemodynamically stable and the patient is ambulating. He is being discharged home today. He will resume his anticoagulation Eliquis from tonight. And he will continue all of his other home medications. He was given a course of antibiotic for 5 days. Physical Exam Const: COMMON NORMALS: no acute distress, patient oriented x3, healthy appearing and alert HENMT: OTHER: Normal Eye: OTHER: Normal Chest: OTHER: Left upper chest is covered with a bandage over pacemaker insertion site. Looks unremarkable. The rest of the chest exam is normal Resp: OTHER: Good air entry bilaterally on auscultation of the chest. No added sounds. Cardio: OTHER: Normal first and second heart sounds. There is no JVD. GI: OTHER: Soft abdomen, nontender. Bowel sounds audible. Extremity: NARRATIVE EXTREMITY EXAM: Normal. No lower extremity edema. Neuro: COMMON NORMALS: patient oriented x3 SENSORIUM/ORIENTATION: Yes alert OTHER: Grossly intact. Skin: NARRATIVE SKIN EXAM: Skin warm and dry. Discharge Data Studies Completed and Pending Completed Studies During Hospitalization Category Date Time Status BRAKE LINING CURER request for service Routine Exams 07/27/24 08:30 Completed Laboratory Results WBC 5.69 10^3/uL (3.29-11.43) 07/27/24 07:45 RBC 4.40 10^6/uL (3.85-5.65) 07/27/24 07:45 Hgb 14.00 g/dL (11.27-16.99) 07/27/24 07:45 Hct 41.9 % (37-53) 07/27/24 07:45 MCV 95.2 fl (82-101) 07/27/24 07:45 MCH 31.8 pg (27-33) 07/27/24 07:45 MCHC 33.4 g/dL (30-55) 07/27/24 07:45 RDW 13.6 % (12.1-15.1) 07/27/24 07:45 Plt Count 150 10^3/cmm (157-399) L 07/27/24 07:45 MPV 10.8 fL (7.4-10.4) H 07/27/24 07:45 Neut % (Auto) 57.9 % 07/27/24 07:45 Lymph % (Auto) 27.8 % 07/27/24 07:45 [place] % (Auto) 9.5 % 07/27/24 07:45 Eos % (Auto) 3.9 % 07/27/24 07:45 Baso % (Auto) 0.7 % 07/27/24 07:45 Neut # (Auto) 3.30 10^3/uL (1.8-7.7) 07/27/24 07:45 Lymph # (Auto) 1.6 10^3/uL (0.8-4.8) 07/27/24 07:45 [place] # (Auto) 0.5 10^3/uL (0.2-0.9) 07/27/24 07:45 Eos # (Auto) 0.2 10^3/uL (0.0-0.8) 07/27/24 07:45 Baso # (Auto) 0.0 10^3/uL (0.0-0.1) 07/27/24 07:45 Nucleated RBC % (auto) 0 % 07/27/24 07:45 Nucleated RBCs # 0.0 /100WBC 07/27/24 07:45 PT 13.70 SECONDS (12.1-14.9) 07/27/24 07:45 INR 1.02 (0.8-1.2) 07/27/24 07:45 Sodium 142 mmol/L (136-145) 07/27/24 07:45 Potassium 4.3 mmol/L (3.5-5.1) 07/27/24 07:45 Chloride 104 mmol/L (98-107) 07/27/24 07:45 Carbon Dioxide 25 mmol/L (22-29) 07/27/24 07:45 Anion Gap 17.3 (5-19) 07/27/24 07:45 BUN 25 mg/dL (8-23) H 07/27/24 07:45 Creatinine 1.3 mg/dL (0.7-1.2) H 07/27/24 07:45 GFR Calculation Not Reportable 07/27/24 07:45 Glucose 203 mg/dL (65-115) H 07/27/24 07:45 Calculated Osmolality 304 mOsm/kg (285-295) H 07/27/24 07:45 Calcium 9.2 mg/dL (8.5-10.5) 07/27/24 07:45 Procedures Performed ICD/pacemaker battery replacement. Vitals Last Vital Signs Temp 98.2 F 07/28/24 12:00 Pulse 69 07/28/24 12:00 Resp 18 07/28/24 12:00 BP 161/70 07/28/24 12:00 Pulse Ox 95 07/28/24 12:00 O2 Del Method Room Air 07/28/24 12:00 Discharge Plan Discharge Patient Disposition: Home Prescriptions: New cephalexin 500 mg Capsule 500 mg PO QID 5 Days Qty: 20 0RF No Action Farxiga 10 mg tablet 10 mg PO DAILY fluticasone propionate 50 mcg/actuation spray,suspension 2 spray intranasal DAILY Rx Instructions: administer into each nostril rosuvastatin 40 mg tablet 40 mg PO DAILY@1900 montelukast 10 mg tablet 10 mg PO DAILY tamsulosin 0.4 mg capsule 0.4 mg PO DAILY@1900 pregabalin [Lyrica] 75 mg capsule 75 mg PO BID@0700,1900 pantoprazole [Protonix] [address] for susp in packet 40 mg PO DAILY@0700 furosemide 40 mg tablet 20 mg PO DAILY Januvia 50 mg tablet 50 mg PO DAILY fenofibrate 50 mg capsule 50 mg PO DAILY imiquimod 5 % cream in packet 1 applic topical ONCE Qty: 24 1RF Rx Instructions: Apply thin film Tuesday-Tuesday only (off weekends) for 6 weeks. metoprolol tartrate 50 mg tablet 50 mg PO BID@899,2099 Qty: 180 3RF digoxin 62.5 mcg (0.0625 mg) tablet 62.5 mcg PO DAILY Qty: 90 1RF enoxaparin 80 mg/0.8 mL syringe 80 mg SUBCUT DAILY 2 Days Qty: 1.6 0RF Eliquis 5 mg Tablet 2.5 mg PO BID@899,2099 Qty: 60 3RF Discharge Orders: Discharge Order (Routine); Ordered 07/28/24 Ordered By: Liset Mueller Referrals: Nikki Etienne FNP [Nurse Practitioner] - (We have notified your physician's clinic of the need for a follow-up appointment to be scheduled. If you have not heard from them within the next 2 business days, please call them directly. SENT MESSAGE FOR APPOINTMENT) Diet: Cardiac, Diabetic and Low Salt Activity: Limit activity as instructed Patient Instructions: Cephalexin (By mouth) (Bio-Cef, Keflex), Implantable Cardioverter Defibrillator (DC) Activity Restrictions/Additional Instructions: Keflex 500 mg p.o. every 6 hours Multivitamin 1 tablet p.o. daily for 2 weeks Restart the Eliquis on AM Appointment at the [facility] to be seen with nurse practitioner in 1 week Appointment with me in the office to schedule Discharge Date/Time: 07/28/24 14:05 Discharge Attestations Time Spent in Discharge Care*: less than 30 min Quality Metrics Clinical Quality Measures [ No reported AMI, CVA or VTE this stay] Coding Level of Care Code 03683 Diagnoses ICD (implantable cardioverter-defibrillator) battery depletion Z45.02 Atypical atrial flutter I48.4 Atrial flutter type: atypical Ischemic cardiomyopathy I25.5 Acute on chronic systolic congestive heart failure I50.23 Heart failure type: systolic Coronary artery disease involving [place] coronary artery of [place] heart, unspecified whether angina present I25.10 Associated angina: unspecified whether angina present Coronary Disease-Associated Artery/Lesion type: [place] artery [place] vs. transplanted heart: [place] heart Mixed hyperlipidemia E78.2 Hyperlipidemia type: mixed hyperlipidemia Essential hypertension I10 Hypertension type: essential hypertension Time Spent (min) 25
== END 2024-07-28 14:05 | disposition home or self-care (01) ==
LOC: CCL 07:30 → MEDSURG 11:07
PROVIDERS: PCP Nurse Practitioner Family; Visit Provider Internal Medicine Cardiovascular Disease
PROC: 0JPT0PZ Removal of Cardiac Rhythm Related Device from Trunk Subcutaneous Tissue and Fascia, Open Approach (ICD-10-PCS; principal; 2024-07-27 08:30)
DX: Z45.02 Encounter for adjustment and management of automatic implantable cardiac defibrillator (principal); I48.4 Atypical atrial flutter; I25.5 Ischemic cardiomyopathy; I11.0 Hypertensive heart disease with heart failure; I50.23 Acute on chronic systolic (congestive) heart failure; I25.10 Atherosclerotic heart disease of native coronary artery without angina pectoris; E78.2 Mixed hyperlipidemia; I48.92 Unspecified atrial flutter
CPT/HCPCS: 80048; 85025; 85610; 93005; 97110; 97165; 97535; J0690; J2250; J3010; J3370; J7030; J7050

== ENCOUNTER → 2024-08-08 14:55 | Outpatient (BNVA) | payer MEDICARE, MEDICAID, SELFPAY | PROVIDERS: PCP Nurse Practitioner Family; Visit Provider Nurse Practitioner Family | DX: Z95.810 Presence of automatic (implantable) cardiac defibrillator (principal) | CPT/HCPCS: 99213 ==

== ENCOUNTER → 2024-12-05 08:58 | Outpatient (BNVA) | payer MEDICARE, MEDICAID, SELFPAY | PROVIDERS: PCP Nurse Practitioner Family; Visit Provider Internal Medicine Cardiovascular Disease | DX: Z45.02 Encounter for adjustment and management of automatic implantable cardiac defibrillator (principal) | CPT/HCPCS: 93296 ==

== ENCOUNTER → 2024-12-07 10:05 | Outpatient (BNVA) | payer MEDICARE, MEDICAID, SELFPAY | PROVIDERS: PCP Nurse Practitioner Family; Visit Provider Internal Medicine | DX: I25.10 Atherosclerotic heart disease of native coronary artery without angina pectoris (principal); I77.9 Disorder of arteries and arterioles, unspecified; I11.0 Hypertensive heart disease with heart failure; I50.22 Chronic systolic (congestive) heart failure; I48.4 Atypical atrial flutter; Z79.01 Long term (current) use of anticoagulants; Z95.810 Presence of automatic (implantable) cardiac defibrillator | CPT/HCPCS: 99214 ==

== ENCOUNTER 2025-04-13 08:58 | Emergency (ER) | payer MEDICARE, MEDICAID, SELFPAY ==
--- OUTSIDE RECORDS SUMMARY | 2017-10-11 05:40 | XMS_ITS | Continuity of Care Document ---
Author Organization [employer] [facility] Services Address [address] [place] [id number] Phone Care Team Providers Care Impregnating Helper Name Role Phone Unavailable Unavailable Unavailable Allergies, Adverse Reactions, Alerts Substance Reaction Status Criticality heparin Active No Information Medications Medication Instructions Dosage Effective Dates (start - stop) Status Comments Plavix 75 mg tablet take 1 tablet by ora l route every day 75 MG - Active Lasix 40 mg tablet take 1 tablet by ora l route every day 40 MG - Active Singulair 10 mg tablet take 1 tablet by oral route every day in the evening 10 MG - Active fenofibrate 160 mg tablet take 1 tablet (160MG) by oral route every day 160 MG - Active glimepiride 2 mg tablet take 1 tablet (2MG) by oral route every day 2 MG - Active metoprolol tartrate 25 mg tablet take 1 tablet (25MG) by oral route 2 times every day 25 MG - Active Nexium 20 mg capsule,delayed release take 1 capsule (20MG) by oral route every day - Active Onglyza 5 mg tablet take 1 tablet (5MG) by oral route every day - Active simvastatin 40 mg tablet take 1 tablet (40MG) by oral route every day in the evening 40 MG - Active tamsulosin ER 0.4 mg capsule,extended release 24 hr take 1 capsule (0.4MG) by oral route every day - Active Dymista 137 mcg-50 mcg/spray nasal spray 1 spray each nostril daily - Active Lyrica 75 mg capsule take 1 capsule (75M G) by oral route 2 times every day - Active Diabetic Shoes MISCELL MISCELL 1 pair fitted diabetic shoes. - Active DX: 250.60 fexofenadine 60 mg tablet take 1 tablet by oral route 2 times every day 60 MG - Active Truetrack Test strips apply 1 Drop by Topical route 2 times every day to ch bs 1 Drop - Active dx: 250.00 lancets 21 gauge check glucose twice daily - Active Dx:250.00 Contour Next Strips apply 1 Drop by Topical route 2 times every day to ch bs 1 Drop - Active One Touch Ultra Control solution test one time a day - Active Advance Directives Directive Yes / No Effective Date File Name No Information Encounters Encounter Description Practice Location Reason(s) For Visit Diagnoses Date Provider [facility], [address] [place] [address], [facility], tel:[phone] Patti Columbus No Information 8 No Information [facility], [address] [place] [address], [facility], [place] tel:[phone] Patti Reid Allergic rhinitis, unspecified Jun- 5 Kai Clements. [address] [place] [address], [id number], [place]. tel:[phone] [place] [address], [address] [place] [address], [facility], tel:[phone] Patti Reid Multi Allergy Injection (chief complaint) Allergic rhinitis, unspecified Oct-0 7-201 5 Kai Clements. [address] [place] [address], [id number], [place]. tel:[phone] [place] [address], [address] [place] [address], [facility], [place] tel:[phone] Patti Reid No Information 0 1-201 5 Kai Clements. [address] [place] [address], [id number], [place]. tel:[phone] [place] [address], [address] [place] [address], [facility], [place] tel:[phone] Chota [place] Multi Allergy Injection (chief complaint) Allergic rhinitis, cause unspecified Sep-3 0-201 5 Kai Clements. [address] [place] [address], [id number], [place]. tel:[phone] [place] [address], [address] [place] [address], [facility], [place] tel:[phone] Chota [place] Allergic rhinitis, cause unspecified Sep-2 2-201 5 Kai Clements. [address], [id number], [place]. tel:[phone] [place] [address], [address] [place] [address], [facility], [place] tel:[phone] Chota [place] Allergic rhinitis, cause unspecified Sep-1 6-201 5 Kai Clements. [address] [place] [address], [id number], . tel:[phone] [place] [address], [address] [place] [address], [facility], [place] tel:[phone] Chota [place] Allergic rhinitis, cause unspecified Sep-0 9-201 5 Kai Clements. [address] [place] [address], [id number], [place]. tel:[phone] [place] [address], [address] [place] [address], [facility], [place] tel:[phone] Chota [place] refills (chief complaint)d iabetes (chief complaint)d ue A1c (chief complaint)h anthony time hearing (chief complaint) DM Type 2HTNBPHGERDHyperlipide miaUnspecified idiopathic peripheral neuropathyUnspecified hearing lossAllergy Sep-0 3-201 5 aKi Clements. [address] [place] [address], [id number], [place]. tel:[phone] [place] [address], [address] [place] [address], [facility], [place] tel:[phone] Chota [place] diabetic foot exam (chief complaint)m ed discuss (chief complaint)B CO 34 (chief complaint)P HQ2=0 (chief complaint) Diabetic neurologic diseaseAllergy Wili-3 0-201 5 Kai Clements. [address] [place] [address], [id number], . tel:[phone] [place] [address], [address] [place] [address], [facility], tel:[phone] Chota [place] No Information Ehsan-1 5-201 5 Kai Clements. [address] [place] [address], [address] [place] [address], [place]. tel:[phone] [place] [address], [address] [place] [address], [facility], [place] tel:[phone] Chota [place] diabetes (follow up) (chief complaint)n eeds depression screen (chief complaint) DM Type 2HTNHyperlipidemiaUnsp ecified idiopathic peripheral neuropathyMeniere's disease, unspecified Ehsan-1 0-201 5 Kai Clements. [address] [place] [address], [address] [place] [address], [place]. [phone] [place] [address], [address] [place] [address], [facility], tel:[phone] Chota [place] refill (chief complaint) Unspecified idiopathic peripheral neuropathy Apr-0 9-201 5 Kai Clements. [address] [place] [address], [address] [place] [address], [place]. tel:[phone] [place] [address], [address] [place] [address], [facility], [place] tel:[phone] Chota [place] No Information Apr-0 7-201 5 Kai Clements. [address] [place] [address], [id number], [place]. tel:[phone] [place] [address], [address] [place] [address], [facility], [place] tel:[phone] Chota [place] dizziness (chief complaint)n ausea (chief complaint) Meniere's disease, unspecifiedUnspecified hearing loss Mar-0 2-201 5 Kai Clements. [address] [place] [address], [address] [place] [address], [place]. tel:[phone] [facility], [address] [place] [address], [facility], [place] tel:[phone] Chota [place] dizziness (chief complaint)h earing loss (chief complaint)b mi 35.41 (chief complaint) DizzinessCerumen Impaction 2 3-201 5 Kai Clements. [address] [place] [address], [id number], [place]. tel:[phone] [place] [address], [address] [place] [address], [facility], [place] tel:[phone] [place] cough (chief complaint)e ar ache (chief complaint) Acute upper respiratory infections of other multiple sites 0 6-201 5 Kai Clements. [address] [place] [address], [id number], [place]. tel:[phone] [place] [address], [address] [place] [address], [facility], [place] tel:[phone] Ch[place] cough (chief complaint) Bronchitis, Acute Sep-0 9-201 5 John Nicole. [address], [id number], [place]. tel:[phone] [place] [address], [address] [place] [address], [facility], [place] tel:[phone] Chota [place] cold symptoms (chief complaint) Bronchitis, AcuteCough Enzo-0 5-201 5 No Information [facility], [address] [place] [address], [facility], [place] tel:[phone] Ch[place] hearing loss (chief complaint) Meniere's disease, unspecifiedHyperlipide miaHTNDM Type 2Other acute sinusitisUnspecified hearing loss Dec-0 4-201 4 Kai Clements. [address] [place] [address], [id number], [place]. tel:[phone] [facility], [address] [place] [address], [facility], [place] tel:[phone] Chota [place] No Information Dec-0 1-201 4 Kai Clements. [address] [place] [address], [id number], [place]. tel:[phone] [facility], [address] [place] [address], [id number], [place] tel:[phone] [facility] new pt (chief complaint) DM Type 2CAD, [place] VesselHTNOther and unspecified hyperlipidemiaBPHGERD 4 Kai Clements. [address] [place] [address], [id number], [place]. tel:[phone] Family History Family Member Type Diagnosis Age At Onset Mother Problem (finding) alzheimer's disease Immunizations Vaccine Date Status Comments Influenza, seasonal, injectable administered Source: New Immuniza tion Record Flu (split) (3 yrs or older) administered Source: Source Unspecified Payers Payer name Insurance type Covered republican ID Authoriza tion(s) [facility] [id number] Medicaid [place] [id number] [facility] [id number] Medicaid [place] [id number] Social History Type Description Quantity Date Captured Comments Sex Male Smoking Status No Information Chief Complaint And Reason For Visit No Information Plan Of Treatment Date Type Action Status Goal Eye exam. Due on due Goal GFR. Due on due Goal Pneumococcal vaccine. Due on due Goal Dilated eye exam. Due on Jun due Goal Dental exam. Due on 015 due Goal *Pneumo 13 (PCV13). Due on due Goal Tdap. Due on due Goal Alcohol/chemical dependency screening. Due on due Goal Cognitive assessment. Due on due Goal Zoster vaccine. Due on due Goal Td vaccine. Due on 15 due Goal RX for Thiazide if no contraindication. Due on due Goal Echocardiogram. Due on due Goal Pneumococcal vaccine. Due on due Goal Dilated eye exam. Due on Jun due Goal Dental exam. Due on 015 due Goal Eye exam. Due on due Goal Cognitive assessment. Due on due Goal Td vaccine. Due on 15 due Goal Tdap. Due on due Goal Zoster vaccine. Due on due Goal *Pneumo 13 (PCV13). Due on O due Goal Alcohol/chemical dependency screening. Due on due Goal RX for Thiazide if no contraindication. Due on due Goal Echocardiogram. Due on due Goal Dilated eye exam. Due on Jun due Goal Pneumococcal vaccine. Due on due Goal Eye exam. Due on due Goal Dental exam. Due on 015 due Goal Alcohol/chemical dependency screening. Due on due Goal Zoster vaccine. Due on due Goal Tdap. Due on due Goal Td vaccine. Due on 15 due Goal *Pneumo 13 (PCV13). Due on due Goal Cognitive assessment. Due on due Goal RX for Thiazide if no contraindication. Due on due Goal Echocardiogram. Due on due Goal Pneumococcal vaccine. Due on due Goal Dilated eye exam. Due on May due Goal Dental exam. Due on due Goal Eye exam. Due on due Goal Alcohol/chemical dependency screening. Due on due Goal Cognitive assessment. Due on due Goal Td vaccine. Due on 15 due Goal Zoster vaccine. Due on due Goal *Pneumo 13 (PCV13). Due on due Goal Tdap. Due on due Goal Echocardiogram. Due on due Goal RX for Thiazide if no contraindication. Due on due Goal RX for Thiazide if no contraindication. Due on due Goal Echocardiogram. Due on due Goal Dental exam. Due on due Goal Dilated eye exam. Due on May due Goal Eye exam. Due on due Goal Pneumococcal vaccine. Due on due Goal Tdap. Due on due Goal Cognitive assessment. Due on due Goal Alcohol/chemical dependency screening. Due on due Goal Td vaccine. Due on 15 due Goal *Pneumo 13 (PCV13). Due on due Goal Zoster vaccine. Due on due Goal Pneumococcal vaccine. Due on due Goal Dilated eye exam. Due on May due Goal Eye exam. Due on due Goal Dental exam. Due on due Goal Tdap. Due on due Goal Cognitive assessment. Due on due Goal *Pneumo 13 (PCV13). Due on due Goal Td vaccine. Due on 15 due Goal Alcohol/chemical dependency screening. Due on due Goal Zoster vaccine. Due on due Goal Echocardiogram. Due on due Goal RX for Thiazide if no contraindication. Due on due Goal Dental exam. Due on 015 due Goal Pneumococcal vaccine. Due on due Goal Dilated eye exam. Due on May due Goal Eye exam. Due on due Goal Td vaccine. Due on 15 due Goal Cognitive assessment. Due on due Goal Tdap. Due on due Goal Zoster vaccine. Due on due Goal *Pneumo 13 (PCV13). Due on due Goal Alcohol/chemical dependency screening. Due on due Goal RX for Thiazide if no contraindication. Due on due Goal Echocardiogram. Due on due Goal Pneumococcal vaccine. Due on due Goal Dental exam. Due on 015 due Goal Dilated eye exam. Due on May due Goal Eye exam. Due on due Goal Creatinine. Due on 16 due Goal *Pneumo 13 (PCV13). Due on due Goal Tdap. Due on due Goal Alcohol/chemical dependency screening. Due on due Goal Zoster vaccine. Due on due Goal Cognitive assessment. Due on due Goal Td vaccine. Due on due Goal BMP. Due on due Goal RX for Thiazide if no contraindication. Due on due Goal Echocardiogram. Due on due Goal CMP due Goal Cognitive assessment. Due on due Goal Td vaccine. Due on due Goal Zoster vaccine. Due on due Goal RX for Thiazide if no contraindication. Due on due Goal ECG due Goal Urinalysis due Goal Echocardiogram. Due on due Goal Diabetes screening due Goal Eye exam. Due on due Goal Pneumococcal vaccine. Due on due Goal Dental exam. Due on 015 due Goal Dilated eye exam. Due on Mar due Goal Tdap. Due on due Goal Echocardiogram. Due on due Goal RX for Thiazide if no contraindication. Due on due Goal Tdap. Due on due Goal Urinalysis . Due on due Goal ECG. Due on due Goal Eye exam. Due on due Goal Pneumococcal vaccine. Due on due Referral Referred To: elaine Ordered: Referrals: Allergy and Immunology. elaine. Evaluate and treat ordered Referral Ordered: Referral: ENT. Evaluate and treat. Appointment date/timeframe: 12/10/2014 ordered Referral Ordered: Referral: Cardiology. Evaluate and treat. ordered Future Order: Lab Order HEMOGLOB IN A1C ([id number]), Sent on: Sent Future Order: Lab Order LIPID PANEL ([id number] ), Sent on: Sent Future Order: Lab Order CBC WITH OUT DIFF ([id number]), Sent on: Sent Future Order: Lab Order HEMOGLOB IN A1C ([id number]), Sent on: Sent Future Order: Lab Order COMPREHE NSIVE METABOLIC PANEL ([id number]), Sent on: Sent History Of Present Illness Encounter Date Complaint History Of Prese nt Illness Multi Allergy Injection Multi Allergy Injection due A1c diabetes refills Needing check up and refill of medications. States was found to be allergic to all indoor allergens. Is doing allergy shots. hard time hearing Still having p roblems with ears, started in left ear 12 years ago and now has problems in right ear. ENT said only thing could be done was meclizine for any vertigo, and has hearing aid. diabetic foot exam Needing foot exam due to diabetes, has old pair of diabetic shoes. med discuss States has gotte n where lyrica is not working well once a day, states use to take it 2 times daily.Also states would like to see an area manager to figure out what he may be allergic to. PHQ2=0 BMI 34 Instructions Date Instruction Additional Infor veneciaion Continue Medications (No Change) Will notify of lab results Continue Medications (No Change) Will notify of appointment with ENT If dizziness continu es return to clinic and may need to refer for ENT consult Drink plenty fluids Adjust medications:S tart medication today increase fluidsrest Return earlier if ne eded. Call with problems or concerns. Drink plenty of water. Return if worsening. Return earlier if ne eded. Call with problems or concerns. Drink plenty of water. Return if worsening. Dietary counseling Related to Di etary surveillance counseling Physical activity counseling Adjust medications:U se cough syrup with codeine as needed- could cause sedation Will notify of lab r rae and appointment with air cargo agent Dietary counseling Related to Di etary surveillance counseling Physical activity counseling Assessments Type Assessment Date No Information
[2025-04-13 09:12] VITALS: BP 125/67; PULSE 75; RESP 18; TEMP 37.1; O2SAT 92; BMI 31.7
--- NOTE | 2025-04-13 09:29 | XRR_ITS ---
PROCEDURE INFORMATION: Exam: XR Left Knee Exam date and time: 04/13/2025 9:42 AM Age: 84 years old Clinical indication: Pain; Knee; Left TECHNIQUE: Imaging protocol: Radiologic exam of the left knee. Views: 3 views. 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 [id number] osteoarthritis in the patellofemoral compartment. Moderate knee joint effusion. Probable intra-articular body in the posterior joint. No acute fracture, dislocation or subluxation is seen. Soft tissues: The extensor mechanism is overall intact. XR/XR knee LT 3V* [id number] IMPRESSION: 1. [id number]-sl-[id number] osteoarthritis most prominent in the medial compartment with moderate knee joint effusion and probable intra-articular body in the posterior joint. 2. No acute fracture is seen.
--- NOTE | 2025-04-13 09:30 | W.ED.EXTPRO ---
HPI - Extremity Problem General: Chief complaint: Extremity Injury, Lower Stated complaint: lt leg pain Time Seen by Provider: 04/13/25 09:16 History of Present Illness: 84-year-old male presents emergency room planing of left leg pain. Has been going on for the last 2 months has pain in his knee that extends distally. 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 He has no swelling. No chest pain no shortness of breath. Associated symptoms: Deny chest pain, fever(s) or rash Related Data Home Medications ?Medication ?Instructions ?Recorded ?Confirmed montelukast 10 mg tablet 10 mg PO DAILY 01/28/21 12/07/24 pantoprazole 40 mg granules 40 mg PO DAILY@0701/28/21 12/07/24 delayed-release for susp in packet (Protonix) pregabalin 75 mg capsule (Lyrica) 75 mg PO BID@0700,1900 01/28/21 12/07/24 rosuvastatin 40 mg tablet 40 mg PO DAILY@189901/28/21 12/07/24 tamsulosin 0.4 mg capsule 0.4 mg PO DAILY@189901/28/21 12/07/24 furosemide 40 mg tablet 20 mg PO DAILY 03/12/21 12/07/24 dapagliflozin propanediol 10 mg 10 mg PO DAILY 07/31/21 12/07/24 tablet (Farxiga) fenofibrate 50 mg capsule 50 mg PO DAILY 04/30/22 12/07/24 sitagliptin phosphate 50 mg tablet 50 mg PO DAILY 04/30/22 12/07/24 (Januvia) fluticasone propionate 50 2 spray intranasal DAILY PRN 12/07/24 12/07/24 mcg/actuation nasal spray,suspension tramadol 25 mg tablet 25 mg PO Q6H PRN 12/07/24 12/07/24 Previous Rx's ?Medication ?Instructions ?Recorded apixaban 5 mg tablet (Eliquis) 2.5 mg (1/2 x 5 mg) PO 03/08/21 BID@0900,2100 #60 tabs imiquimod 5 % topical cream packet 1 applic topical ONCE #24 ea 11/19/22 metoprolol tartrate 50 mg tablet 50 mg PO BID@0900,2100 #180 tabs 02/21/23 digoxin 62.5 mcg (0.0625 mg) tablet 62.5 mcg PO DAILY #90 tabs 08/12/23 diclofenac sodium 75 mg 75 mg PO Q12H PRN pain #20 tabs 04/13/25 tablet,delayed release Allergies Allergy/AdvReac Type Severity Reaction Status Date / Time heparin Allergy Unknown Unknown Verified 12/07/24 10:25 Review of Systems Const: Denies: fever(s) or chills Card: Denies: chest pain Resp: Denies: dyspnea GI: Denies: abdominal pain : Denies: dysuria, urinary frequency or urinary urgency Musc: Denies: neck pain or back pain Skin/Breast: Denies: rash PFSH ED PFSH: Medical History ICD (implantable cardioverter-defibrillator) battery depletion Atrial flutter Diabetes mellitus ICD (implantable cardioverter-defibrillator) in place Ischemic cardiomyopathy CHF (congestive heart failure) CAD (coronary artery disease) Hyperlipidemia Hypertension Pacemaker Surgical History History of back surgery Hx of total knee arthroplasty H/O heart bypass surgery H/O shoulder surgery Family History Mother Alzheimer's dementia Father No problems noted. Other Hypertension Social History Smoking and tobacco/nicotine status: never used tobacco/nicotine Alcohol intake: current Alcohol type: wine Substance/Drug Use: never Physical Exam Const: GENERAL APPEARANCE: cooperative ORIENTATION/CONSCIOUSNESS: Yes awake, Yes oriented to person, Yes oriented to place and Yes oriented to time HENMT: COMMON NORMALS: normocephalic, atraumatic and hearing grossly normal bilaterally HEAD & SCALP: normocephalic and atraumatic Resp: COMMON NORMALS: normal respiratory effort, No retractions, No use of accessory muscles and clear to auscultation bilaterally AUSCULTATION: clear to auscultation bilaterally Cardio: COMMON NORMALS: regular rate, regular rhythm and No murmurs present (Cardio) RATE: regular rate RHYTHM: regular rhythm GI: COMMON NORMALS: Soft to palpation and No hepatosplenomegaly present AUSCULTATION: Yes normoactive bowel sounds PALPATION: Yes Soft to palpation, No Tenderness to palpation present (GI), No Guarding due to palpation present (GI) and Yes No hepatosplenomegaly present Extremity: COMMON NORMALS: normal to inspection, capillary refill normal, no clubbing, cyanosis or edema, no calf tenderness and no pedal edema Neuro: SENSORIUM/ORIENTATION: Yes oriented to person, Yes oriented to place and Yes oriented to time Skin: COMMON NORMALS: no rashes or lesions noted GENERAL SKIN EXAM: no rashes or lesions noted Course Vital Signs: Vital signs: Vital Signs Temperature 98.7 F 04/13/25 09:12 Pulse Rate 74 04/13/25 10:38 Respiratory Rate 18 04/13/25 09:12 Blood Pressure 116/77 04/13/25 10:38 Pulse Oximetry 94 04/13/25 10:38 Oxygen Delivery Me thod Room Air 04/13/25 09:12 MDM - Extremity (Nontraumatic) Medical Decision Making Patient presents with leg pain on exam very benign exam is been taking his Eliquis regularly there is no swelling he has some tender spot in the proximal gastroc muscle was not very tender with palpation he did states pain radiates to that region he does have some effusion to the left knee joint. There is no redness no erythema no sign of superficial thrombophlebitis. X-ray was negative for fracture does show significant loss of joint space. Will discharge patient home with diclofenac to use as needed and follow-up as needed with his primary care doctor. Medical Records I reviewed the patient's medical records. Lab Data I reviewed the patient's lab results. 04/13/25 09:42 Laboratory Results WBC 6.22 10^3/uL (3.29-11.43) 04/13/25 09:42 RBC 4.28 10^6/uL (3.85-5.65) 04/13/25 09:42 Hgb 13.30 g/dL (11.27-16.99) 04/13/25 09:42 Hct 40.2 % (37-53) 04/13/25 09:42 MCV 93.9 fl (82-101) 04/13/25 09:42 MCH 31.1 pg (27-33) 04/13/25 09:42 MCHC 33.1 g/dL (30-55) 04/13/25 09:42 RDW 14.1 % (12.1-15.1) 04/13/25 09:42 Plt Count 134 10^3/cmm (157-399) L 04/13/25 09:42 MPV 11.5 fL (7.4-10.4) H 04/13/25 09:42 Neut % (Auto) 66.4 % 04/13/25 09:42 Lymph % (Auto) 20.7 % 04/13/25 09:42 [place] % (Auto) 8.2 % 04/13/25 09:42 Eos % (Auto) 3.4 % 04/13/25 09:42 Baso % (Auto) 1.0 % 04/13/25 09:42 Neut # (Auto) 4.13 10^3/uL (1.8-7.7) 04/13/25 09:42 Lymph # (Auto) 1.3 10^3/uL (0.8-4.8) 04/13/25 09:42 [place] # (Auto) 0.5 10^3/uL (0.2-0.9) 04/13/25 09:42 Eos # (Auto) 0.2 10^3/uL (0.0-0.8) 04/13/25 09:42 Baso # (Auto) 0.1 10^3/uL (0.0-0.1) 04/13/25 09:42 Nucleated RBC % (auto) 0 % 04/13/25 09:42 Nucleated RBCs # 0.0 /100WBC 04/13/25 09:42 XR interpretation done by ED provider, pending radiology final review ED provider radiology interpretation(s): Left knee shows flattening of the tibial plateau loss of joint space particularly medial. No acute fractures tibial spines normal. Osteophytes at the medial aspect of the joint Discharge Plan Discharge Patient Disposition: Home Clinical Impression: Knee pain, left Condition: Stable Prescriptions: New diclofenac sodium 75 mg tablet,delayed release (DR/EC) 75 mg PO Q12H PRN (Reason: pain) Qty: 20 0RF No Action Farxiga 10 mg tablet 10 mg PO DAILY rosuvastatin 40 mg tablet 40 mg PO DAILY@1900 montelukast 10 mg tablet 10 mg PO DAILY tamsulosin 0.4 mg capsule 0.4 mg PO DAILY@1900 pregabalin [Lyrica] 75 mg capsule 75 mg PO BID@0700,1900 pantoprazole [Protonix] [address] for susp in packet 40 mg PO DAILY@0700 fluticasone propionate 50 mcg/actuation spray,suspension 2 spray intranasal DAILY PRN Rx Instructions: administer into each nostril furosemide 40 mg tablet 20 mg PO DAILY Januvia 50 mg tablet 50 mg PO DAILY fenofibrate 50 mg capsule 50 mg PO DAILY imiquimod 5 % cream in packet 1 applic topical ONCE Qty: 24 1RF Rx Instructions: Apply thin film Tuesday-Tuesday only (off weekends) for 6 weeks. tramadol 25 mg tablet 25 mg PO Q6H PRN metoprolol tartrate 50 mg tablet 50 mg PO BID@0900,2100 Qty: 180 3RF digoxin 62.5 mcg (0.0625 mg) tablet 62.5 mcg PO DAILY Qty: 90 1RF Eliquis 5 mg Tablet 2.5 mg PO BID@0900,2100 Qty: 60 3RF Discharge Orders: Discharge ED (Routine); Ordered 04/13/25 Ordered By: Tripp Price Referrals: Lydia Anna DO [Primary Care Provider, KENO DEALER] Discharge Diet: Usual diet Discharge Activity: Resume usual activity Patient Instructions: Opioid Safety, Pain Management, Patient Portal & Dianna Instructions Activity Restrictions/Additional Instructions: Thank you for choosing [facility] for your healthcare needs today. It is very important that you follow up as instructed or that you return to the Emergency Department should you have concerns or if your condition changes or worsens in any way. You were seen in the emergency room with complaints of knee pain. On exam there is no sign of blood clot x-ray of your knee shows significant arthritic changes. You were given diclofenac to use as needed and follow-up with your primary care doctor. Print Language: [place] Coding Level of Care Code ED Curator Of Education for Zay Calle
[2025-04-13 10:09] LABS: Hematocrit 40.2 % (37-53); Hemoglobin 13.30 g/dL (11.27-16.99); Mean Corpuscular HGB Conc 33.1 g/dL (30-55); Mean Corpuscular Hemoglobin 31.1 pg (27-33); Mean Corpuscular Volume 93.9 fl (82-101); Nucleated Red Blood Cells % 0 %; Platelet Count 134 10^3/cmm (157-399); Red Blood Count 4.28 10^6/uL (3.85-5.65); White Blood Count 6.22 10^3/uL (3.29-11.43)
[2025-04-13 10:38] VITALS: BP 116/77; PULSE 74; O2SAT 94
== END 2025-04-13 10:54 | disposition home or self-care (01) ==
PROVIDERS: Emergency Provider Family Medicine; PCP Family Medicine
DX: M25.562 Pain in left knee (principal); Z79.01 Long term (current) use of anticoagulants; I25.10 Atherosclerotic heart disease of native coronary artery without angina pectoris; E78.5 Hyperlipidemia, unspecified; E11.9 Type 2 diabetes mellitus without complications; I11.0 Hypertensive heart disease with heart failure; I50.9 Heart failure, unspecified; Z95.0 Presence of cardiac pacemaker
CPT/HCPCS: 73562; 85025; 99284

== ENCOUNTER 2025-05-08 09:12 | Outpatient (CLI) | payer MEDICARE, MEDICAID, SELFPAY ==
--- NOTE | 2025-05-08 09:24 | XR_ITS ---
WS: [id number] Chest 2 views, 05/08/2025 Clinical Data: SARS-COV-2 DETECTED Comparison: Portable chest, 03/03/2021 Findings: No nodules, masses or effusions are seen. The heart is normal. The pulmonary vascularity is not increased. No pneumonia or pneumothorax is seen. The aortic arch shows calcification. There is a cardiac pacemaker in the same position with the generator overlapping the left lateral chest. Midline sternotomy sutures are present. XR/XR chest 2V* [id number] Impression: Atherosclerosis and cardiac pacemaker.
== END 2025-05-08 09:13 | disposition home or self-care (01) ==
LOC: RAD 09:15
PROVIDERS: PCP Family Medicine; Visit Provider Nurse Practitioner Family
DX: M17.12 Unilateral primary osteoarthritis, left knee (principal); I70.0 Atherosclerosis of aorta; Z95.0 Presence of cardiac pacemaker; Z98.890 Other specified postprocedural states
CPT/HCPCS: 71046; 73560; 73565; 99214

== ENCOUNTER → 2025-05-29 16:49 | Outpatient (BNVA) | payer MEDICARE, MEDICAID, SELFPAY | PROVIDERS: PCP Family Medicine; Visit Provider Internal Medicine | DX: Z45.02 Encounter for adjustment and management of automatic implantable cardiac defibrillator (principal) | CPT/HCPCS: 93296 ==

== ENCOUNTER → 2025-06-12 15:03 | Outpatient (BNVA) | payer MEDICARE, MEDICAID, SELFPAY | PROVIDERS: PCP Family Medicine; Visit Provider Internal Medicine | DX: I25.10 Atherosclerotic heart disease of native coronary artery without angina pectoris (principal); I11.0 Hypertensive heart disease with heart failure; I50.22 Chronic systolic (congestive) heart failure; I48.92 Unspecified atrial flutter; Z79.01 Long term (current) use of anticoagulants; Z95.810 Presence of automatic (implantable) cardiac defibrillator | CPT/HCPCS: 99214 ==

== ENCOUNTER 2025-06-26 08:46 | Outpatient (CLI) | payer MEDICARE, MEDICAID, SELFPAY ==
[2025-06-26 09:02] VITALS: BMI 29.9
--- NOTE | 2025-06-26 09:10 | ECG_ITS ---
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 Interpretive Statements LEXISCAN SESTAMIBI STRESS TEST Procedure: At the baseline, the blood pressure was 131/73 mmHg with a heart rate of 71 bpm. The electrocardiogram showed paced rhythm with normal ST and T's. The Lexiscan was infused over a period of 20 seconds. A total of 0.4 mg of Lexiscan was infused. The stress phase was continued for a total of 5 minutes. Heart rate was at the end of stress phase was 72 bpm and a blood pressure of 118/66 mmHg. The EKG at the peak infusion revealed paced rhythm with no significant ST-T wave changes. Sestamibi was injected 20 seconds after the Lexiscan infusion. Blood pressure at the end of recovery phase was 140/69 mmHg with a heart rate of 70 bpm. Conclusion: 1. Normal EKG response to Lexiscan infusion 2. No Lexiscan induced chest pain or cardiac arrhythmia. 3. Normal blood pressure and heart rate response. 4. Sestamibi/sestamibi perfusion scan pending; see separate report. Electronically Signed On 07-07-2025 10:11:27 CDT by Pete Gibson M.D. [email or web address] [email or web address]
--- NOTE | 2025-06-26 09:11 | NMCV_ITS ---
NM alana perf SPECT r/s* [id number] Abdirizak Johnie Age: 85 Gender: M : 1940 Exam Date: 06/26/2025 09:38 Ordering Phys: Pete Gibson M.D ([email or web address]) Technologist: YANETH Del Angel Exam Location: [facility] Indications: CP STRESS TEST Please see separate stress test report [facility] for full findings IMAGE PROTOCOL Rest/Stress 1 Lexiscan Day Radiopharmaceutical Dose (mCi) Administration Site Administered by Rest: Tc-99m 10.8 IV Megan Dahl, INSURANCE REPRESENTATIVE Sestamibi Stress:Tc-99m 32.4 IV Megan Damicogle, INSURANCE REPRESENTATIVE Sestamibi Rest: 26-Jun-2025 60 Discovery 630 Stress: 26-Jun-2025 30 Discovery 630 0.4mg Lexiscan. Images obtained in supine and prone position. SPECT RESULTS Technical Quality: Good Raw Data Analysis: Normal Image Corrections: No attenuation or motion correction applied Summed Stress Score: 22 Summed Rest Score: 19 Summed Difference Score: 3 PERFUSION FINDINGS Large area of fixed perfusion defect noted in basal to distal inferior and basal to distal inferolateral wall suggestive of old myocardial infarction in either dominant RCA or dominant circumflex territory without dax-infarct ischemia. There appeared to be medium sized area of patchy decreased tracer uptake noted in basal to mid anterior wall which shows mild reversibility on the stress images suggestive of possible ischemia in LAD territory however in the absence of wall motion abnormality cannot rule out artifact, clinical correlation advised. FUNCTIONAL RESULTS (calculated via Gated SPECT) Stress Image LV EF (%): 44 Stress EDV (mL):133 TID: 1.08 Stress ESV (mL):74 FUNCTIONAL FINDINGS: There appeared to be inferior and lateral wall akinesis IMPRESSIONS Large area of fixed perfusion defect noted in basal to distal inferior and basal to distal inferolateral wall suggestive of old myocardial infarction in either dominant RCA or dominant circumflex territory without dax-infarct ischemia. There appeared to be medium sized area of patchy decreased tracer uptake noted in basal to mid anterior wall which shows mild reversibility on the stress images suggestive of possible ischemia in LAD territory however in the absence of wall motion abnormality cannot rule out artifact, clinical correlation advised. Delroy Olvera MD (Electronically Signed) Final Date: 26 June 2025 15:09 S
[2025-06-26 11:57] VITALS: BP 132/74; PULSE 66
== END 2025-06-26 08:47 | disposition home or self-care (01) ==
LOC: CDL 08:49
PROVIDERS: PCP Family Medicine; Visit Provider Internal Medicine
DX: R07.9 Chest pain, unspecified (principal); R06.02 Shortness of breath; R93.1 Abnormal findings on diagnostic imaging of heart and coronary circulation
CPT/HCPCS: 36415; 78452; 93017; 96374; A9500; J2785

== ENCOUNTER → 2025-07-11 11:02 | Outpatient (BNVA) | payer MEDICARE, MEDICAID, SELFPAY | PROVIDERS: PCP Family Medicine; Visit Provider Family Medicine | DX: E11.9 Type 2 diabetes mellitus without complications (principal) | CPT/HCPCS: 80053; 83036 ==

== ENCOUNTER 2025-07-19 09:33 | Outpatient (CLI) | payer MEDICARE, MEDICAID, SELFPAY ==
[2025-07-19 09:54] LABS: Glucose Urine UA 3+ (Normal); Nitrate Urine Negative (Negative); Specific Gravity, Urine 1.029 (1.005-1.030)
[2025-07-19 09:59] LABS: Add Urine Microscopic? YES
== END 2025-07-19 09:34 | disposition home or self-care (01) ==
LOC: LAB 09:35
PROVIDERS: PCP Family Medicine; Visit Provider Family Medicine
DX: Z01.818 Encounter for other preprocedural examination (principal)
CPT/HCPCS: 81001

== ENCOUNTER 2025-07-26 11:30 | Outpatient (CLI) | payer MEDICARE, MEDICAID, SELFPAY ==
--- NOTE | 2025-07-26 12:00 | CT_ITS ---
WS: [id number] CT LEFT KNEE, NONCONTRAST [facility] TECHNIQUE: Noncontrast CT of the LEFT knee to include the LEFT hip and ankle. CLINICAL INFORMATION: M17.12 - Unilateral primary osteoarthritis, left knee COMPARISON: None. DLP: 872.[address] scans at [facility] use at least one of these dose optimization techniques: automated exposure control; mA and/or kV adjustment per patient size (includes targeted exams where dose is matched to clinical indication); or iterative reconstruction. FINDINGS: Advanced sigmoid diverticulosis. Moderate to advanced arthritis LEFT knee worse in the medial joint compartment. Hypertrophic patella. Hypertrophic changes along the joint line. Small to moderate suprapatellar effusion. Soft tissue edema about the joint line. Vascular calcification. CT/CT knee LT [place]WARD [id number] IMPRESSION: Images obtained for preoperative purposes.
== END 2025-07-26 11:31 | disposition home or self-care (01) ==
LOC: RAD 11:31
PROVIDERS: PCP Family Medicine; Visit Provider Nurse Practitioner
DX: M17.12 Unilateral primary osteoarthritis, left knee (principal); K57.30 Diverticulosis of large intestine without perforation or abscess without bleeding
CPT/HCPCS: 73700

== ENCOUNTER 2025-08-01 10:17 | Observation (INO) | payer MEDICARE, MEDICAID, SELFPAY ==
[2025-08-01] VITALS (25 sets, daily range): BP systolic 101–164; BP diastolic 56–95; PULSE 69–88; RESP 14–69; TEMP 36.1–36.7; O2SAT 92–99; BMI 29.2
[2025-08-01] MEDS: acetaminophen 1,000 MG/100 ML PIGGYBACK 400 MG IV ×3 (06:41→12:27)
[2025-08-01 06:59] LABS: Hematocrit 39.7 % (37-53); Hemoglobin 13.00 g/dL (11.27-16.99); Mean Corpuscular HGB Conc 32.7 g/dL (30-55); Mean Corpuscular Hemoglobin 30.2 pg (27-33); Mean Corpuscular Volume 92.3 fl (82-101); Nucleated Red Blood Cells % 0 %; Platelet Count 133 10^3/cmm (157-399); Red Blood Count 4.30 10^6/uL (3.85-5.65); White Blood Count 6.94 10^3/uL (3.29-11.43)
--- NOTE | 2025-08-01 06:59 | P.HPUD_ITS ---
Surgery/Procedure H&P Update DATE OF PROCEDURE: August 01, 2025 DATE H&P PERFORMED: 07/11/25 H&P UPDATE INFORMATION: I have reviewed H&P completed within last 30 days, I have examined patient prior to procedure, No changes to prior documentation, H&P is in [facility] EMR on date indicated and Risks and benefits of the procedure reviewed PLANNED PROCEDURE: Operation Date: 08/01/25 07:00 Proposed Procedures p Davin Robot Total Knee Arthroplasty(Left) - Radha Edmonds MD Related Problem List Diagnoses 1. Primary osteoarthritis of left knee:
[2025-08-01] MEDS: ceFAZolin 2,000 mg SDV 2000 MG IVP ×3 (07:02→22:37)
--- NOTE | 2025-08-01 07:09 | ANES.PREANE2 ---
Pre-Anesthetic Assessment Height/Weight: Height 1.65 m Weight 79.832 kg Temp Pulse Resp BP Pulse Ox O2 Del Method 97 F L 88 18 156/95 97 Room Air 08/01/25 06:26 08/01/25 06:26 08/01/25 06:26 08/01/25 06:26 08/01/25 06:26 08/01/25 06:26 Operation Date: 08/01/25 07:00 Proposed Procedures p Davin Robot Total Knee Arthroplasty(Left) - Radha Edmonds MD Familial anesthetic complications: none Was Beta Shruti taken within 24 hours: N/A Was Clonidine taken within 24 hours: N/A Last intake: Intake Last Liquid Date 07/31/25 Last Liquid Time 21:00 Last Solid Date 07/31/25 Last Solid Time 16:00 Social No alcohol and No tobacco Exam alert, oriented x 3, clear to auscultation bilaterally and regular rate & rhythm CV/HEM Coronary Artery Disease, Congestive Heart Failure and Hypertension pacemaker de fib Anesthetic Plan ASA status: 3 Anesthesia: General Risk of > 500 ml blood loss (7ml/kg in children): No Medications/Allergies Home Medications ?Medication ?Instructions ?Recorded ?Confirmed ?Last Taken ?Type montelukast 10 mg tablet 10 mg PO DAILY 01/28/21 07/31/25 07/31/25 History pantoprazole 40 mg granules 40 mg PO DAILY@0700 01/28/21 08/01/25 08/01/25 04:30 History delayed-release for susp in packet (Protonix) pregabalin 75 mg capsule (Lyrica) 75 mg PO BID@0700,1900 01/28/21 07/31/25 07/31/25 History rosuvastatin 40 mg tablet 40 mg PO DAILY@189901/28/21 07/31/25 07/31/25 History tamsulosin 0.4 mg capsule 0.4 mg PO DAILY@189901/28/21 07/31/25 07/31/25 History apixaban 5 mg tablet (Eliquis) 2.5 mg (1/2 x 5 mg) PO 03/08/21 07/31/25 07/24/25 Rx BID@0900,2100 #60 tabs furosemide 40 mg tablet 10 mg PO DAILY 03/12/21 07/31/25 07/31/25 History dapagliflozin propanediol 10 mg 10 mg PO DAILY 07/31/21 07/31/25 07/31/25 History tablet (Farxiga) fenofibrate 50 mg capsule 50 mg PO DAILY 04/30/22 07/31/25 07/31/25 History sitagliptin phosphate 50 mg tablet 50 mg PO DAILY 04/30/22 07/31/25 07/31/25 History (Januvia) metoprolol tartrate 50 mg tablet 50 mg PO BID@0900,2100 #180 tabs 02/21/23 08/01/25 08/01/25 04:30 Rx digoxin 62.5 mcg (0.0625 mg) tablet 62.5 mcg PO DAILY #90 tabs 08/12/23 07/31/25 07/31/25 Rx fluticasone propionate 50 2 spray intranasal DAILY PRN 12/07/24 07/31/25 Unknown History mcg/actuation nasal Allergy Symptoms spray,suspension tramadol 25 mg tablet 25 mg PO Q6H PRN Pain 12/07/24 07/31/25 07/31/25 History semaglutide 0.25 mg or 0.5 mg (2 0.5 mg (0.736 mL) SUBCUT .weekly 07/11/25 07/31/25 07/17/25 Rx mg/3 mL) subcutaneous pen injector #3 mL (Ozempic) Allergies Allergy/AdvReac Type Severity Reaction Status Date / Time heparin Allergy Unknown Unknown Verified 08/01/25 06:10 Current Medications Generic Name Dose Route Start Last Admin Trade Name Freq PRN Reason Stop Dose Admin Sodium Chloride 1,000 mls @ 30 mls/hr 08/01/25 06:15 08/01/25 06:41 Sodium Chloride 0.9% IV 08/02/25 06:14 30 mls/hr .Q24H GIL Administration PFSH Anesthesia Medical History (Updated 08/01/25 @ 07:00 by Radha Edmonds MD) ICD (implantable cardioverter-defibrillator) battery depletion Atrial flutter Diabetes mellitus ICD (implantable cardioverter-defibrillator) in place Ischemic cardiomyopathy CHF (congestive heart failure) CAD (coronary artery disease) Hyperlipidemia Hypertension Pacemaker Surgical History History of back surgery Hx of total knee arthroplasty H/O heart bypass surgery H/O shoulder surgery Family History Mother Alzheimer's dementia Father No problems noted. Other Hypertension Social History Smoking and tobacco/nicotine status: never used tobacco/nicotine Alcohol intake: current Alcohol type: wine Substance/Drug Use: never Data Anesthesia 08/01/25 06:40 Short CBC 08/01/25 Range/Units 06:40 WBC 6.94 (3.29-11.43) 10^3/uL Hgb 13.00 (11.27-16.99) g/dL Hct 39.7 (37-53) % MCV 92.3 (82-101) fl Plt Count 133 L (157-399) 10^3/cmm Neut % (Auto) 58.6 % Neut # (Auto) 4.06 (1.8-7.7) 10^3/uL Cardiac Studies: Echocardiogram 05/18/23 Echocardiogram Ultrasound 03/02/21 Transesophageal Echocardiogram 03/06/21 Sestamibi Stress Test (Cardiology) 06/26/25
[2025-08-01] MEDS: tranexamic acid 1,000 mg/10mL SDV 1000 MG IV (07:15)
[2025-08-01] MEDS: BUPivacaine liposome 13.3 mg/mL SDV 20 mL 266 MG INJECTION (08:00)
[2025-08-01] MEDS: BUPivacaine 0.5% INJ 10 mL 20 ML INJECTION (08:00)
[2025-08-01] MEDS: ceFAZolin 1,000 mg SDV 2000 MG IRRIGATION (08:01)
--- NOTE | 2025-08-01 10:08 | PM.OP ---
Operative Report Date of procedure: August 01, 2025 Pre-op diagnosis: Severe degenerative osteoarthritis left knee Post-op diagnosis: Severe degenerative osteoarthritis left knee Post-op findings: Severe degenerative osteoarthritis with osteophytes and denudement of cartilage throughout. Varus deformity. Procedure done: Left total knee arthroplasty with Davin guidance Implants: The Parker total knee system with a size 6 triathlon beaded cruciate retaining femur left, a triathlon titanium tibial component size 6 beaded, a triathlon X3 tibial bearing CS insert size 6 X 11 mm and a beaded triathlon titanium asymmetric patella size 38 x 11 mm Specimens removed/disposition: Bone, disposed of Pathology: None Surgeon: Radha Edmonds MD Fire Control Technician: Ivanna Bowman, nurse practitioner who services were required for retraction, exposure, closure, and completion of the surgical procedure Anesthesia: General (Per LMA, ASA 3) and Local (Exparel placed intraoperatively) Estimated blood loss (mL): 400 Tourniquet time (min): 0 (Not utilized) IV fluids (mL): 1,600 Urine output (mL): 50 Complications: None Findings: Severe degenerative osteoarthritic change as noted above Condition: stable Disposition: PACU (Then to floor for postoperative rehabilitation and pain management) Brief History: This 85-year-old gentleman presented with complaints of severe left knee pain that caused him significant activities and his activities of daily living. Patient noted that nothing alleviated the pain, and the knee would awaken him in the middle of the night. He had limited range of motion and limited functionality. After discussion in the office, the patient wished to proceed with operative intervention in the form of left total knee arthroplasty. Previously, the patient underwent right total knee arthroplasty uneventfully. Procedure: The patient was brought to the operating theater, and after undergoing adequate general anesthesia per LMA, ASA 3, the left lower extremity was prepped with DuraPrep and draped in usual fashion following placement of a tourniquet high on the leg. The leg was then draped free. Tourniquet was placed on the leg but was not elevated throughout the surgical procedure. Following exposure of the site of surgery, a surgical pause was performed. At the time of the surgical pause, we confirmed the site and side of surgery. Additionally, we confirmed the appropriate and timely administration of preoperative antibiotics, Ancef 2 g. Tranexamic acid 1 g was given preoperatively and will be given again on the floor for 1 dose postoperatively. The availability of equipment was confirmed, and the patient's identity was verbalized as well. Following the surgical pause, an incision was made centering over the patella continuing proximally and distally as necessary to allow access to the knee joint. Dissection continued through skin and soft tissues using a scalpel. Hemostasis was obtained using electrocautery. The skin incision was followed by a median parapatellar arthrotomy. The leg was extended and the patella was able to be displaced laterally. Appropriate arrays and markers were placed in appropriate position for use of the Davin. Preoperative planning had been accomplished and was discussed in detail with the Davin front desk representative. Intraoperative mapping of the femur and tibia was accomplished after the arrays were placed. Once we had accomplished the Davin mapping, we began the appropriate resections for placement of the prosthesis. The plan was for a cruciate retaining right total knee arthroplasty. Once appropriate mapping had been accomplished retraction was established using manual retraction by the Davin leg positioner and retractors. The knee was evaluated. There was eburnation particularly of the lateral femoral condyle.? There were large osteophytes about the trochlear groove as well as the patella and medial tibial plateau.? After balancing the knee within the Davin program, the appropriate bone resection was accomplished. Initial resection was accomplished on the tibia followed by appropriate resections on the femur. We had performed a medial release at the beginning of the procedure to allow for placement of the array. Proximal tibia was evaluated and it was felt that appropriate size for the tibia was a size 6, and appropriate femoral size was a size 6. A trial reduction was accomplished after osteophytes had been removed, the medial and lateral meniscus were excised, and bone cuts had been accomplished as above. We had removed the anterior cruciate ligament at the beginning of the case and preserved the posterior cruciate ligament. Trial reduction was accomplished with a size 6 femoral cruciate retaining component and a size 6 tibia with a CS tibial bearing insert which was 9 mm in thickness. Initial trial reduction demonstrated that the knee had excellent stability and full flexion, but there was slight hyperextension. For this reason, we elected to increase to a size 11 mm insert for trials. With this, we had excellent extension without hyperextension. The knee was stable with no varus or valgus opening. The trial components were removed after the femur had been drilled. Prior to removal of the tibial tray which had been pinned in position with appropriate rotation as determined by the Davin plan, we broached the tibia. Subsequently, the 4 drill holes were made for the prosthetic component. All trial components had been removed, and the wound was irrigated. Plans were made for insertion of the prosthetic components. Prior to this, the patella was manually prepared using a checking system. After resection of the articular surface, it was measured and measured a 38 mm patella. Patellar height was restored with the patellar component. Once again, the wound was irrigated. The Tritanium tibia was impacted into position.? The beaded femur was then impacted into position in a cementless fashion. The CS tibial insert was placed prior to placement of the femoral component. The patella was pressed into position with a patellar clamp.? Exparel was injected prior to placement of the components. The knee was then copiously irrigated with betadine and saline and suctioned dry. Attention was then directed to closure. Closure was accomplished with 0 Vicryl in the fascial tissues followed by a running #1 strata fix 1 from proximal to distal and 1 from distal to proximal.? This was followed by Surgiflo and vancomycin powder. Subcutaneous tissues were closed with 2-0 Monocryl, and the skin was closed in a running subcuticular fashion with 3-0 Monocryl strata fix.? A sterile dressing was then placed consisting of Dermabond Prineo, OpSite, sterile soft roll including over the foot, and an Andreas wrap. The patient was returned the Recovery Room in a satisfactory condition. X-rays were obtained and reviewed there.? The patient will be discharged to the floor for postoperative rehabilitation and pain management. Related Problem List Diagnoses 1. Primary osteoarthritis of left knee:
--- NOTE | 2025-08-01 10:24 | XR_ITS ---
WS: [id number] Exam: XR knee LT 1-2V 70181 Date/Time of Exam: 08/01/2025 10:24 AM Reason For Exam: POST OP Comparison 05/08/2025. Total knee arthroplasty is in place in satisfactory position. Postop changes in the soft tissues. XR/XR knee LT 1-2V [id number] IMPRESSION: 1. Total knee replacement in satisfactory position.
[2025-08-01] MEDS: fentaNYL 50 mcg/mL INJ 2mL IVP ×2 (10:35→10:45)
[2025-08-01] MEDS: HYDROmorphone 1 mg/mL INJ 1ml 0.5 MG IVP (10:59)
--- NOTE | 2025-08-01 11:20 | ANE.PACU2 ---
Inpatient post-anesthesia follow up: Airway intact: Yes Vital signs: Temperature 98 F Pulse Rate 71 Respiratory Rate 16 Blood Pressure 164/87 Pulse Oximetry 92 Oxygen Delivery Me thod Room Air Oxygen Flow Rate 8 Fraction of Inspir ed Oxygen Hydration adequate: Yes Nausea and vomiting: No Pain level: 1 Mental status: Baseline
[2025-08-01] MEDS: chlorhexidine gluconate 0.12% Btl 473 mL 30 ML MUCOUS MEM ×3 (12:27→22:38)
[2025-08-01] MEDS: tranexamic acid 1,000 MG/100 ML PREMIX 600 MG IV (16:18)
[2025-08-01] MEDS: sennosides-docusate Tablet 2 TAB PO (16:20)
[2025-08-01] MEDS: mupirocin oint 22 gm 1 APPLIC NASAL (16:21)
[2025-08-01] MEDS: acetaminophen 1,000 MG/100 ML PIGGYBACK 100 MG IV (20:24)
[2025-08-01] MEDS: APIXABAN 2.5 MG TABLET PO (20:30)
[2025-08-02] MEDS: acetaminophen 1,000 MG/100 ML PIGGYBACK 100 MG IV (04:27)
[2025-08-02] MEDS: sennosides-docusate Tablet 2 TAB PO (04:59)
[2025-08-02 05:00] VITALS: PULSE 80
[2025-08-02] MEDS: DAPAGLIFLOZIN 10 MG TABLET PO (05:00)
[2025-08-02] MEDS: chlorhexidine gluconate 0.12% Btl 473 mL 30 ML MUCOUS MEM ×2 (05:02→10:52)
[2025-08-02] MEDS: mupirocin oint 22 gm 1 APPLIC NASAL (05:02)
[2025-08-02] MEDS: multivitamin therapeutic Tablet 1 TAB PO (05:18)
[2025-08-02 05:19] VITALS: PULSE 80
[2025-08-02 05:46] VITALS: BP 119/61; PULSE 69; RESP 15; TEMP 36.9; O2SAT 93
[2025-08-02 05:57] LABS: Hematocrit 32.0 % (37-53); Hemoglobin 10.30 g/dL (11.27-16.99); Mean Corpuscular HGB Conc 32.2 g/dL (30-55); Mean Corpuscular Hemoglobin 29.9 pg (27-33); Mean Corpuscular Volume 92.8 fl (82-101); Nucleated Red Blood Cells % 0 %; Platelet Count 116 10^3/cmm (157-399); Red Blood Count 3.45 10^6/uL (3.85-5.65); White Blood Count 9.53 10^3/uL (3.29-11.43)
[2025-08-02] MEDS: oxyCODONE 5 mg IR Tab/Cap PO (06:18)
[2025-08-02 08:02] VITALS: BP 119/65; PULSE 70; RESP 16; TEMP 36.6; O2SAT 94
[2025-08-02] MEDS: ceFAZolin 2,000 mg SDV 2000 MG IVP (08:48)
[2025-08-02] MEDS: APIXABAN 2.5 MG TABLET PO (10:51)
[2025-08-02 11:28] VITALS: BP 152/67; PULSE 72; RESP 18; TEMP 36.8; O2SAT 95
--- NOTE | 2025-08-02 13:13 | P.DS_ITS ---
Discharge Providers Date of Admission: 08/01/25 10:17 Date of Discharge: August 02, 2025 Attending Provider at Admission: Radha Edmonds MD Attending Provider at Discharge: Radha Edmonds MD Primary Care Provider: Lydia Anna DO Diagnoses at Discharge Discharge Diagnosis 1. Primary osteoarthritis of left knee: 2. Status post total left knee replacement not using cement: Reason for Visit Reason for Visit: M17.12 Brief History: This 85-year-old gentleman presented with complaints of severe left knee pain that caused him significant activities and his activities of daily living. Patient noted that nothing alleviated the pain, and the knee would awaken him in the middle of the night. He had limited range of motion and limited functionality. After discussion in the office, the patient wished to proceed with operative intervention in the form of left total knee arthroplasty. Previously, the patient underwent right total knee arthroplasty uneventfully. Hospital Course Hospital Course This 85-year-old gentleman was admitted under observation status following same- day surgery for left total knee arthroplasty. The patient did well the day of surgery and following surgery. He worked with physical therapy and did well. There is no evidence of DVT on physical examination. Dressing was dry and intact. Patient was felt safe for discharge home. Both he and his family agreed, and he was discharged home to follow up in the office as scheduled. Physical Exam Const: COMMON NORMALS: no acute distress, average body habitus, patient oriented x3 and alert GENERAL APPEARANCE: cooperative and comfortable ORIENTATION/CONSCIOUSNESS: Yes awake HENMT: COMMON NORMALS: normocephalic and atraumatic HEAD & SCALP: normocephalic and atraumatic Eye: GENERAL EYE: appearance normal, both eyes and all related structures Chest: COMMONS NORMALS: normal inspection of the chest Resp: COMMON NORMALS: normal respiratory effort EFFORT & INSPECTION: Yes able to speak in complete sentences and Yes symmetric chest movement Extremity: LEFT LOWER EXTREMITY: Yes knee joint (Large outer dressing is removed.) Left knee: Yes inspection (Dressing is dry and intact, minimal ecchymosis), Yes palpation (No significant tenderness), Yes ROM (Not evaluated) and Yes neurovascular exam (Intact distally with no evidence of DVT) Neuro: COMMON NORMALS: patient oriented x3 SENSORIUM/ORIENTATION: Yes alert Psych: COMMON NORMALS: mental status grossly normal APPEARANCE: Yes grossly normal ATTITUDE: Yes calm and Yes engaged ATTENTION/CONCENTRATION: Yes attention grossly intact Skin: COMMON NORMALS: no rashes or lesions noted GENERAL SKIN EXAM: no aaron hes or lesions noted Urinary Catheter Management: Saini: Cath Placed During This Visit: yes, but has since been removed by the nurse Reason for Continuing Indwelling Catheter: Required Immobilization for Trauma or Surgery or Anesthesia Urinary Catheter Date of Insertion: 08/01/25 Urinary Catheter Time of Insertion: 07:11 Date Urinary Catheter Removed: 08/02/25 Time Urinary Catheter Discontinued: 04:38 Discharge Data Studies Completed and Pending Completed Studies During Hospitalization Category Date Time Status XR knee LT 1-2V 65054 Routine Exams 08/01/25 10:24 Completed Radiology Impressions Knee X-Ray 08/01/25 10:24 IMPRESSION: 1. Total knee replacement in satisfactory position. Laboratory Results WBC 9.53 10^3/uL (3.29-11.43) 08/02/25 05:12 RBC 3.45 10^6/uL (3.85-5.65) L 08/02/25 05:12 Hgb 10.30 g/dL (11.27-16.99) L 08/02/25 05:12 Hct 32.0 % (37-53) L 08/02/25 05:12 MCV 92.8 fl (82-101) 08/02/25 05:12 MCH 29.9 pg (27-33) 08/02/25 05:12 MCHC 32.2 g/dL (30-55) 08/02/25 05:12 RDW 14.0 % (12.1-15.1) 08/02/25 05:12 Plt Count 116 10^3/cmm (157-399) L 08/02/25 05:12 MPV 11.4 fL (7.4-10.4) H 08/02/25 05:12 Neut % (Auto) 72.5 % 08/02/25 05:12 Lymph % (Auto) 15.7 % 08/02/25 05:12 Harrison % (Auto) 10.8 % 08/02/25 05:12 Eos % (Auto) 0.4 % 08/02/25 05:12 Baso % (Auto) 0.2 % 08/02/25 05:12 Neut # (Auto) 6.90 10^3/uL (1.8-7.7) 08/02/25 05:12 Lymph # (Auto) 1.5 10^3/uL (0.8-4.8) 08/02/25 05:12 Harrison # (Auto) 1.0 10^3/uL (0.2-0.9) H 08/02/25 05:12 Eos # (Auto) 0.0 10^3/uL (0.0-0.8) 08/02/25 05:12 Baso # (Auto) 0.0 10^3/uL (0.0-0.1) 08/02/25 05:12 Nucleated RBC % (auto) 0 % 08/02/25 05:12 Nucleated RBCs # 0.0 /100WBC 08/02/25 05:12 POC Glucose 178 mg/dL (70-110) H 08/01/25 06:44 Vitals Last Vital Signs Temp 98.2 F 08/02/25 11:28 Pulse 72 08/02/25 11:28 Resp 18 08/02/25 11:28 BP 152/67 08/02/25 11:28 Pulse Ox 95 08/02/25 11:28 O2 Del Method Room Air 08/02/25 11:28 O2 Flow Rate 8 08/01/25 10:20 Discharge Plan Discharge Patient Disposition: Home Health Service Condition: Stable Prescriptions: New celecoxib 200 mg Capsule 200 mg PO 1XD 30 Days Qty: 30 0RF acetaminophen 500 mg Tablet 1,000 mg PO Q8H 15 Days Qty: 90 0RF oxycodone 5 mg Tablet 5 mg PO Q4H PRN (Reason: Moderate To Severe Pain) 7 Days Qty: 40 0RF Continued Farxiga 10 mg tablet 10 mg PO DAILY rosuvastatin 40 mg tablet 40 mg PO DAILY@1900 montelukast 10 mg tablet 10 mg PO DAILY tamsulosin 0.4 mg capsule 0.4 mg PO DAILY@1900 pregabalin [Lyrica] 75 mg capsule 75 mg PO BID@0700,1900 pantoprazole [Protonix] [address] for susp in packet 40 mg PO DAILY@0700 fluticasone propionate 50 mcg/actuation spray,suspension 2 spray intranasal DAILY PRN (Reason: Allergy Symptoms) Rx Instructions: administer into each nostril furosemide 40 mg tablet 10 mg PO DAILY Januvia 50 mg tablet 50 mg PO DAILY fenofibrate 50 mg capsule 50 mg PO DAILY Ozempic 0.25 mg or 0.5 mg (2 mg/3 mL) pen injector 0.5 mg SUBCUT .weekly Qty: 3 0RF tramadol 25 mg tablet 25 mg PO Q6H PRN (Reason: Pain) metoprolol tartrate 50 mg tablet 50 mg PO BID@0900,2100 Qty: 180 3RF digoxin 62.5 mcg (0.0625 mg) tablet 62.5 mcg PO DAILY Qty: 90 1RF Eliquis 5 mg Tablet 2.5 mg PO BID@0900,2100 Qty: 60 3RF Discharge Order = DC NOW: Discharge Order (Routine); Ordered 08/02/25 Ordered By: Radha Edmonds Referrals: [facility] [Outside] Referral Note: They will call you to figure out the best time to come out. Radha Edmonds MD [Physician, Orthopedics] - 08/19/25 9:15 am Discharge Diet: Advance as tolerated and Usual diet Discharge Activity: Increase activity as tolerated, Limit activity as instructed, Use walker/crutches as instructed and As per PT/OT instructions Patient Instructions: Oxycodone, Rapid Release (By mouth), Celecoxib (By mouth), Acute Wound Care (DC), Operative Knee Arthroscopy (DC), Opioid Safety, Post Anesthesia Care, Patient Portal & Dianna Instructions Activity Restrictions/Additional Instructions: Ice and elevation to left lower extremity. You may weight-bear as tolerated. Gait training, ambulation, and strengthening per physical therapy. Range of motion to the knee as tolerated. You may shower, but do not submerge your knee in water such as bath water or a swimming pool or hot tub. If your clear plastic dressing lifts up and begins to leak, you may remove it. Otherwise, keep it in place until you are seen in the office. Discharge Attestations Time Spent in Discharge Care*: greater than 30 min Specific Discharge Activities: educating patient, documenting/other paperwork and evaluating patient/reviewing data Quality Metrics Clinical Quality Measures [ No reported AMI, CVA or VTE this stay] Coding Level of Care Code Acute Code for Chg Fwd Diagnoses Primary osteoarthritis of left knee M17.12 Status post total left knee replacement not using cement Z96.652
[2025-08-02 15:17] VITALS: BP 152/67; PULSE 72; RESP 18; TEMP 36.8; O2SAT 95
== END 2025-08-02 15:18 | disposition home health service (06) ==
LOC: MEDSURG 10:18
PROVIDERS: Anesthesiology; Admitting Provider Specialist; PCP Family Medicine; Visit Provider Specialist
PROC: 8E0Y0CZ Robotic Assisted Procedure of Lower Extremity, Open Approach (ICD-10-PCS; CPT 27447; principal; 2025-08-01 07:00)
DX: M17.12 Unilateral primary osteoarthritis, left knee (principal); K21.9 Gastro-esophageal reflux disease without esophagitis; Z79.01 Long term (current) use of anticoagulants; I25.10 Atherosclerotic heart disease of native coronary artery without angina pectoris; I11.0 Hypertensive heart disease with heart failure; I50.9 Heart failure, unspecified; Z95.0 Presence of cardiac pacemaker; E78.5 Hyperlipidemia, unspecified; E11.9 Type 2 diabetes mellitus without complications
CPT/HCPCS: 27447; 20985; 36415; 36416; 51702; 73560; 82962; 85025; 97110; 97116; 97161; 97165; 97530; A4216; A4649; C1776; G0378; J0131; J0666; J0690; J1100; J1171; J2371; J2405; J2704; J3010; J3373; J3490; J7030; J9999

== ENCOUNTER → 2025-08-19 09:17 | Outpatient (BNVA) | payer MEDICARE, MEDICAID, SELFPAY | PROVIDERS: PCP Family Medicine; Visit Provider Specialist | DX: Z98.890 Other specified postprocedural states (principal); Z96.652 Presence of left artificial knee joint | CPT/HCPCS: 73560; 73565; 99024 ==